=== PATIENT | female | born 1955 | race Caucasian/White ===

== ENCOUNTER 2016-11-13 12:18 | Emergency (ER) | payer OTHER, MEDICAID ==
--- NOTE | 2016-11-13 12:30 | CPEKG ---
Heart Rate: 80 RR Interval: 750 P-R Interval: 156 QRSD Interval: 86 QT Interval: 376 QTC Interval: 434 P [place]: 67 QRS [place]: 37 T Wave [place]: 25 EKG Severity - BORDERLINE ECG - EKG Impression: SINUS RHYTHM EKG Impression: BORDERLINE T ABNORMALITIES, ANTERIOR LEADS Electronically Signed By: Josue Canela 14-Nov-2016 15:12:22
--- NOTE | 2016-11-13 12:32 | EDPHY ---
HPI/HX/ROS/PE/MDM Narrative: CHIEF COMPLAINT: Left chest pain HPI: The patient is a 60 y/o female arriving via EMS from [place] complaining of greater than 12 hours of waxing and waning left-sided chest pain. She has an extensive medical history that includes CAD with LAD stent, diabetes, hypertension, hyperlipidemia, chronic pain, and agoraphobia. She first noticed pain last night and initially thought it was indigestion. She was evaluated by EMS and refused transport at that time, but was advised to call back if it became more severe. Throughout the morning the pain has become worse, more sharp , and radiates into her back and left arm. Her chest pain is reproducible with palpation. She was reluctant to come into the ED and refused IV by EMS but did take a total of 324mg Aspirin prior to arrival. She denies recent trauma. REVIEW OF SYSTEMS: Aside from elements discussed in the HPI, a comprehensive 10-point review of systems was reviewed and is negative. PMH: CAD with LAD stent, poorly controlled diabetes type 2, agoraphobia, closed head injury with vertigo and Meniere disease, chronic back pain on continuous opioids, obstructive sleep apnea, hypertension, hyperlipidemia, depression, reactive airway disease, GERD, IBS, restless leg syndrome, incontinence, Parkinson's, essential tremor, hyperostosis, migraines, cholecystectomy, left ankle ORIF. Prior medical records reviewed including admission 08/07/16 for gait instability and multiple injuries SOCIAL HISTORY: Lives at [place] PHYSICAL EXAM: General:Patient is alert, in no acute distress, chronically ill appearing, morbidly obese. ENT:Eyes are normal to inspection. ENT inspection normal. Neck: Normal inspection. Full range of motion. Respiratory:No respiratory distress. Breath sounds normal bilaterally. Tenderness to left anterior chest with palpation, no crepitus. Cardiovascular: Regular rate and rhythm. Strong peripheral pulses. Normal cap refill. Abdomen:The abdomen is nontender to palpation. There are no peritoneal signs. There are normal bowel sounds. Back: Normal to inspection. No tenderness to palpation. Skin: Normal color. No rash. Warm and dry. Extremities: Normal appearance. Full range of motion. Neuro: Oriented x3. Normal motor function. Normal sensory function. ED Course: IV established. Labs drawn including CBC, CHEM, troponin. Patient placed on salvage machine operator. Chest x-ray ordered. The 12 lead EKG was interpreted by [email or web address]. See hard copy and/or "tracemaster" electronic copy for interpretation. Study: PA and Lateral Chest X-ray Indication: Chest pain Results: Dr. Fried's read is: No source for chest pain identified. Stable since June 2009. I viewed the images on the PACS system. Troponin is negative. 1420: I discussed work up with the patient and offered admission. She declines and would like to go home. I've referred her to cardiology for follow up next week and recommended ibuprofen as needed for pain. Strict return precautions given. She agrees with plan. MDM: This patient presents to the emergency department chest pain in the setting of multiple risk factors including known coronary artery disease. She reports pain conitnually since last night, with thankfully her troponin EKG are negative , making ACS unlikely given this consistent pain. The patient has clearly reproducible chest pain with palpation, again making this somewhat low risk. I offered the patient admission the hospital for further workup and troponin rule out, but she would prefer to go home. We discussed strict return precautions. The patient is aware that I am unable to fully rule out ACS here in the emergency department without further workup. - Data Points Laboratory Results: Laboratory Results 11/13/16 13:50 11/13/16 12:50 11/13/16 11/13/16 13:50 12:50 WBC 9.12 10^3/uL REJ (3.80-9.50) RBC 5.05 10^6/uL REJ (4.18-5.33) Hgb 13.8 g/dL REJ (12.6-16.3) Hct 43.9 % REJ (38.0-47.0) MCV 86.9 fL REJ (81.5-99.8) MCH 27.3 L pg REJ (27.9-34.1) MCHC 31.4 L g/dL REJ (32.4-36.7) RDW 14.4 % REJ (11.5-15.2) Plt Count TNP REJ MPV TNP REJ Neut % (Auto) 55.4 % REJ (39.3-74.2) Lymph % (Auto) 33.1 % REJ (15.0-45.0) Wirt % (Auto) 5.9 % REJ (4.5-13.0) Eos % (Auto) 4.3 % REJ (0.6-7.6) Baso % (Auto) 0.8 % REJ (0.3-1.7) Nucleat RBC Rel Count 0.0 % REJ (0.0-0.2) Absolute Neuts (auto) 5.05 10^3/uL REJ (1.70-6.50) Absolute Lymphs (auto) 3.02 H 10^3/uL REJ (1.00-3.00) Absolute Monos (auto) 0.54 10^3/uL REJ (0.30-0.80) Absolute Eos (auto) 0.39 10^3/uL REJ (0.03-0.40) Absolute Basos (auto) 0.07 10^3/uL REJ (0.02-0.10) Absolute Nucleated RBC 0.00 10^3/uL REJ (0-0.01) Immature Gran % 0.5 % REJ (0.0-1.1) Immature Gran # 0.05 10^3/uL REJ (0.00-0.10) Sodium 137 mEq/L (134-144) Potassium 4.6 mEq/L (3.5-5.2) Chloride 101 mEq/L (97-110) Carbon Dioxide 30 mEq/l (22-31) Anion Gap 6 mEq/L (8-16) BUN 15 mg/dL (7-23) Creatinine 0.8 mg/dL (0.6-1.0) Estimated GFR > 60 Glucose 262 H mg/dL (70-100) Calcium 8.7 mg/dL (8.5-10.4) Troponin I < 0.012 ng/mL (0-0.034) General Initial Vital Signs: Initial Vital Signs Temperature (C) 36.4 C 11/13/16 12:18 Heart Rate 77 11/13/16 12:18 Respiratory Rate 18 11/13/16 12:18 Blood Pressure 120/105 H 11/13/16 12:18 O2 Sat (%) 93 11/13/16 12:18 O2 Delivery Mode Nasal Cannula O2 (L/minute) 2 Allergies/Adverse Reactions: latex Allergy (Verified 04/03/11 13:15) Home Medications: Medication Instructions Recorded Acetaminophen [Tylenol 325mg (*)] 650 mg PO Q4 PRN 08/07/16 Albuterol [Proventil Inhaler HFA 2 puffs IH Q4H 08/07/16 (*)] Aspirin [Aspirin 81mg (*)] 81 mg PO DAILY 08/07/16 Atorvastatin Calcium [Lipitor 40 40 mg PO DAILY@08/07/16 mg (*)] Calcium Carbonate [Tums 500MG (*)] 500 mg PO DAILY PRN 08/07/16 Carbidopa/Levodopa 25/100Mg 1 tab PO TID 08/07/16 [Sinemet 25/100 MG (*)] Cetirizine [ZyrTEC 10 mg (*)] 10 mg PO DAILY 08/07/16 Cholecalciferol Vit D3 [Vitamin D3 50,000 unit PO Q30D 08/07/16 (*)] DULoxetine [Cymbalta 60 MG (*)] 60 mg PO DAILY 08/07/16 Dextran 70/Hypromellose 1 each OP DAILY PRN 08/07/16 [Artificial Tears] Diazepam [Valium 5 MG (*)] 5 mg PO Q6H PRN 08/07/16 Erythromycin Stearate 500 mg PO TID 08/07/16 Fenofibrate [Tricor] 48 mg PO DAILY 08/07/16 Fluticasone Nasal [Flonase Nasal 1 - 2 sprays NASAL DAILY 08/07/16 [place]] Gabapentin [Neurontin 400 MG (*)] 1,200 mg PO BID@08/07/16 HYDROmorphone HCL [Dilaudid 2 mg 2 mg PO HS 08/07/16 (*)] HYDROmorphone HCL [Dilaudid 2 mg 2 mg PO Q6H PRN 08/07/16 (*)] Insulin Glargine [Lantus 100 32 units SC BID@08/07/16 UNITS/ML (*)] Ipratropium 0.03% Nasal [Atrovent 2 sprays EACHNARE BID PRN 08/07/16 0.03% Nasal (*)] MILNACIPRAN HCL [Savella 50 mg] 50 mg PO BID 08/07/16 Metoprolol Tartrate [Lopressor 25 12.5 mg PO BID 08/07/16 mg (*)] Mineral Oil/Pet Hy-Phl [Aquaphor 1 leandra TOP BID@08/07/16 Ointment (*)] Multivitamins [Multivitamin (*)] 1 each PO DAILY 08/07/16 Nystatin Powder [Mycostatin Powder] 1 leandra TOP DAILY@08 08/07/16 Nystatin [Mycostatin 15Gm] 1 leandra TP BID@08,1900 08/07/16 Omeprazole 20 mg PO BID 08/07/16 Ondansetron Odt [Zofran Odt 4 mg 4 mg PO Q8 PRN 08/07/16 (*)] Oxybutynin Chloride Xl [Ditropan 5 mg PO HS 08/07/16 Xl 5mg (*)] Polyethylene Glycol 3350 [Miralax 17 gm PO DAILY PRN 08/07/16 17 gm (*)] SUMAtriptan [Imitrex 50 MG (*)] 50 mg PO DAILY PRN 08/07/16 Sennosides/Docusate Sodium 1 each PO DAILY PRN 08/07/16 [SENEXON-S TABLET] Sodium Chloride [Saline Nasal Mist] 2 sprays EACHNARE Q2H PRN 08/07/16 Zolpidem Tartrate [Ambien 5MG (*)] 10 mg PO HS 08/07/16 diphenhydrAMINE [Benadryl 50 MG 50 mg PO Q6H PRN 08/07/16 (*)] fentaNYL [Duragesic 50 MCG Patch 50 mcg TD Q72H 08/07/16 (*)] guaiFENesin/DEXTROMETHORPHAN 5 - 10 ml PO Q4-6PRN PRN 08/07/16 [Robitussin Dm Oral Liquid (*)] sitaGLIPtin PHOSPHATE [Januvia 100 100 mg PO DAILY 08/07/16 MG (*)] Departure - Departure Disposition: Home, Routine, Self-Care Clinical Impression: Chest wall pain Condition: Good Instructions: Chest Wall Pain (ED) Additional Instructions: 1. Take 600mg ibuprofen every 6-8 hours as needed for pain for the next 3-4 days. 2. Follow up with your software product manager or primary care provider next week. 3. Return to the ED for worsening of condition including chest pain, shortness of breath, and fever. Referrals: [place],. [Primary Care Provider] - As per Instructions Jose Dumont MD [Medical Doctor] - As per Instructions Report Scribed for: Josue Canela Report Scribed by: Yohana Patrick Date of Report: 11/13/16 Time of Report: 12:17 Physician Review and Approval Statement: Portions of this note were transcribed by an ED scribe. I personally performed the history, physical exam, and medical decision making; and confirm the accuracy of the information in the transcribed note.
[2016-11-13 13:01] LABS: ATYPICAL LYMPHOCYTE FLAG 0 (0-99); FRAGMENT RBC FLAG 0 (0-99); LEFT SHIFT FLG 0 (0-99); LIPEMIA HEMOLYSIS FLAG 80 (0-99)
[2016-11-13 13:08] LABS: PLATELET CLUMPS FLAG 300 (0-99)
[2016-11-13 13:17] LABS: ANION GAP 6 mEq/L (8-16); CALCIUM 8.7 mg/dL (8.5-10.4); CARBON DIOXIDE 30 mEq/l (22-31); CHLORIDE 101 mEq/L (97-110); CREATININE 0.8 mg/dL (0.6-1.0); GLOMERULAR FILTRATION RATE > 60; GLUCOSE 262 mg/dL (70-100); POTASSIUM 4.6 mEq/L (3.5-5.2); SODIUM 137 mEq/L (134-144)
[2016-11-13 13:26] LABS: TROPONIN I < 0.012 ng/mL (0-0.034)
--- NOTE | 2016-11-13 13:46 | DX ---
Chest, PA and Lateral History: Chest pain. Findings: The patient is obese. Lungs clear. Heart size is at the upper limits of normal. No pneumoth orax or pleural effusion. There is chronic degenerative spurring in the mid and lower thoracic spine. EKG leads and oxygen tubing overlie the chest. Impression: No source for chest pain identified. Stable since June 2009.
[2016-11-13 14:06] LABS: % IMMATURE GRANULYOCYTES 0.5 % (0.0-1.1); ABSOLUTE IMMATURE GRANULOCYTES 0.05 10^3/uL (0.00-0.10); ADD DIFF? NO; ADD MORPH? NO; ADD SCAN? YES; ATYPICAL LYMPHOCYTE FLAG 0 (0-99); FRAGMENT RBC FLAG 0 (0-99); HEMATOCRIT 43.9 % (38.0-47.0); HEMOGLOBIN 13.8 g/dL (12.6-16.3); LEFT SHIFT FLG 0 (0-99); LIPEMIA HEMOLYSIS FLAG 80 (0-99); MEAN CELL HEMOGLOBIN 27.3 pg (27.9-34.1); MEAN CELL HEMOGLOBIN CONCENTR. 31.4 g/dL (32.4-36.7); MEAN CELL VOLUME 86.9 fL (81.5-99.8); RED BLOOD CELL COUNT 5.05 10^6/uL (4.18-5.33); RED CELL DISTRIBUTION WIDTH 14.4 % (11.5-15.2)
[2016-11-13 14:07] LABS: PLATELET CLUMPS FLAG 300 (0-99)
[2016-11-13 14:34] LABS: SCAN NEGATIVE
[2016-11-13 16:30] VITALS: BP 119/79; PULSE 72; RESP 20; TEMP 98.2; O2SAT 96
== END 2016-11-13 16:40 | disposition home or self-care (01) ==
LOC: EDUNIT#
DX: R07.89 Other chest pain (principal); I25.10 Atherosclerotic heart disease of native coronary artery without angina pectoris; E11.9 Type 2 diabetes mellitus without complications; I10 Essential (primary) hypertension; J45.909 Unspecified asthma, uncomplicated; Z79.4 Long term (current) use of insulin; Z79.82 Long term (current) use of aspirin; Z91.040 Latex allergy status; Z98.61 Coronary angioplasty status

== ENCOUNTER 2017-09-21 08:35 | Observation (INO) | payer MEDICAID, OTHER ==
--- NOTE | 2017-09-21 08:48 | EDPHY ---
HPI/HX/ROS/PE/MDM Narrative: CHIEF COMPLAINT: Chest pain HISTORY OF PRESENT ILLNESS: This patient is a non-anticoagulated 62 y/o female with history of diabetes, migraine, and CAD arriving via EMS complaining of right-sided chest pain onset early this morning. She received 325mg PO aspirin in transport. Currently, her pain radiates to left side and into her left arm. She rates the severity at 7/ 10. It is worse with deep inspiration. Her chest feels sore to the touch. She also complains of a right-sided headache which began this morning as well. She notes her legs have been swelling and turning bright red recently. She endorses recent rhinorrhea, but no cough or chest congestion.She has history of asthma and has been using her inhaler and wearing oxygen at night. She states her lungs were clear during her routine exam last week. No fever, chills, shortness of breath, palpitations, vomiting, diarrhea, urinary complaints, lightheadedness. REVIEW OF SYSTEMS: Aside from elements discussed in the HPI, a comprehensive 10-point review of systems was reviewed and is negative. PAST MEDICAL HISTORY: 1. Diabetes 2. Migraine 3. Asthma 4. Reflux 5. CAD (angioplasty) 6. History of DVT 7. Parkinson's disease 8. Fibromyalgia SOCIAL HISTORY: Lives at [facility]. VITAL SIGNS: Reviewed by me GENERAL: Obese female, chronically on O2, resting comfortably in no respiratory distress. HEENT: Atraumatic. Eyes: No icterus, no injection. Mouth: dry mucous membranes. No erythema or lesions. Neck: supple with no adenopathy. LUNGS: Clear to auscultation bilaterally, no wheezes, rhonchi or rales. Diffuse tenderness across chest wall. No rash or erythema. CARDIAC: Regular rate and rhythm, no rubs, murmurs or gallops. ABDOMEN: Obese, soft, epigastric tenderness. BACK: No CVA tenderness. EXTREMITIES: Bilateral lower extremity edema. Right foot dusky, cool to touch. Hematoma to left medial heel from prior trauma. NEURO: Alert and oriented, grossly nonfocal. SKIN: Warm and dry, no rash. PSYCHIATRIC: Normal mentation, no agitation. Portions of this note were transcribed by a medical appliance maker. I personally performed a history, physical exam, medical decision making, and confirmed accuracy of information the transcribed note. ED Course: 08:39 Met EMS at bedside 62 year old female with history of CAD, diabetes, reflux, and migraines presents with bilateral chest pain and headache onset this morning. Exam reveals diffuse tenderness across chest wall and upper abdomen and bilateral lower extremity edema. Her right foot is dusky and cool to the touch. IV established. Plan for EKG, chest x-ray, labs including CBC, chemistries, troponin, d-dimer, BNP, liver, lipase. Plan to administer 4mg IV morphine for pain control. 12-LEAD EKG: Please see the full report in Trace Master. My interpretation: Sinus rhythm, rate 80, no acute ischemic changes. 11:[address] Garza, radiologist. CT head and CTA chest negative for acute processes. Patient reports that her right foot has been cool and dusky 1st quite some time. I suspect she may have arterial insufficiency. Further evaluation will be performed while in the hospital. 12:10 Consulted with hospitalist service. Dr. Erickson accepts admission for chest discomfort. Plan for flu swab. MDM: After history and physical examination, the differential for chest pain was considered, including but not limited to, myocardial ischemia, acute coronary syndrome, pulmonary embolus, chest wall pain, gastrointestinal causes, pleural inflammation and pulmonary infectious causes. - Data Points Imaging Results: CT Head: Impression: 1. No acute intracranial hemorrhage, subdural hematoma, or mass. 2. Mild atrophy. Findings discussed with Emergency Department physician, Sabina Connors M.D., on 09/21/2017 at 11: 50 a.m. Dictated By: Hiro Garza MD Ct Chest for PE Impression: 1. No evidence of thrombopulmonary embolic disease. 2. Normal caliber atherosclerotic aorta. 3. Clear lungs. No edema or pneumonia. Findings discussed with Emergency Department physician, Sabina Connors M.D., on 09/21/2017 at 11:50 a.m. Dictated By: Hiro Garza MD Laboratory Results: Laboratory Results 09/21/17 08:45 09/21/17 08:45 Medications Given: Discontinued Medications Aspirin (Aspirin) 81 mg PO DAILY [facility] Stop: 03/21/18 08:59 Last Admin: 09/22/17 08:52 Dose: 81 mg Atorvastatin Calcium (Lipitor) 40 mg PO DAILY@19 [facility] Stop: 03/20/18 18:59 Last Admin: 09/21/17 23:17 Dose: 40 mg Carbidopa/Levodopa (Sinemet) 2 tab PO TID@0900,1300,1900 [facility] Stop: 03/20/18 15:59 Last Admin: 09/22/17 14:42 Dose: 2 tab Cetirizine HCl (Zyrtec) 10 mg PO DAILY [facility] Stop: 03/21/18 08:59 Last Admin: 09/22/17 08:53 Dose: 10 mg Diclofenac Sodium (Diclofenac Sodium 1% Gel) 4 gm TP QID ZENON Stop: 03/20/18 15:59 Last Admin: 09/22/17 12:15 Dose: Not Given Duloxetine HCl (Cymbalta) 60 mg PO DAILY [facility] Stop: 03/21/18 08:59 Last Admin: 09/22/17 08:53 Dose: 60 mg Enoxaparin Sodium (Lovenox) 40 mg SC BID [facility] Stop: 03/20/18 20:59 Last Admin: 09/22/17 11:59 Dose: Not Given Fenofibrate (Tricor) 48 mg PO DAILY [facility] Stop: 03/21/18 08:59 Last Admin: 09/22/17 08:52 Dose: 48 mg Fluticasone Propionate (Flonase Nasal [place]) 2 sprays NS HS [facility] Stop: 03/21/18 00:59 Last Admin: 09/22/17 01:04 Dose: 1 spray Gabapentin (Neurontin) 1,200 mg PO BID [facility] Stop: 03/20/18 20:59 Last Admin: 09/22/17 08:53 Dose: 1,200 mg Hydromorphone HCl (Dilaudid) 2 mg PO HS [facility] Stop: 10/01/17 20:59 Last Admin: 09/21/17 15:52 Dose: 2 mg Hydromorphone HCl (Dilaudid) 2 mg PO Q6 PRN PRN Reason: Pain, Breakthrough Stop: 10/01/17 14:55 Last Admin: 09/21/17 23:25 Dose: 2 mg Insulin Glargine (Lantus Syringe) 32 units SC BID@0700,1600 [facility] Stop: 03/20/18 15:59 Last Admin: 09/22/17 06:29 Dose: 32 units Insulin Human Lispro (Humalog Lispro) 0 unit SC TIDMEAL [facility] PRN Reason: Protocol Stop: 03/20/18 17:59 Last Admin: 09/22/17 12:14 Dose: 4 unit Insulin Human NPH (Humulin N Syringe) 10 units SC BID@0700,1600 [facility] Stop: 03/20/18 15:59 Last Admin: 09/22/17 06:29 Dose: 10 units Lorazepam (Ativan) 0.5 mg PO ONCE ONE Stop: 09/22/17 08:14 Last Admin: 09/22/17 08:53 Dose: 0.5 mg Metoprolol Tartrate (Lopressor) 12.5 mg PO BID [facility] Stop: 03/20/18 20:59 Last Admin: 09/22/17 08:54 Dose: 12.5 mg Miscellaneous Medication (Milnacipran Hcl [Savella 50 Mg]) 50 mg PO BID [facility] Stop: 03/20/18 20:59 Last Admin: 09/22/17 08:55 Dose: Not Given Morphine Sulfate (Morphine) 4 mg IVP EDNOW ONE Stop: 09/21/17 08:53 Last Admin: 09/21/17 09:13 Dose: 4 mg Morphine Sulfate (Morphine) 4 mg IVP EDNOW ONE Stop: 09/21/17 12:15 Last Admin: 09/21/17 12:27 Dose: 4 mg Multi-Ingredient Ointment (Aquaphor Ointment) 1 leandra TP BID [facility] Stop: 03/20/18 20:59 Last Admin: 09/22/17 09:00 Dose: 1 leandra Multivitamins (Tab-A-Macho) 1 each PO DAILY [facility] Stop: 03/21/18 08:59 Last Admin: 09/22/17 08:53 Dose: 1 each Oxybutynin Chloride (Ditropan Xl) 10 mg PO DAILY@20 [facility] Stop: 03/20/18 19:59 Last Admin: 09/21/17 23:23 Dose: 10 mg Pantoprazole Sodium (Protonix) 40 mg IVP EDNOW ONE Stop: 09/21/17 12:16 Last Admin: 09/21/17 12:27 Dose: 40 mg Pantoprazole Sodium (Protonix) 40 mg PO BID [facility] Stop: 03/20/18 20:59 Last Admin: 09/22/17 08:52 Dose: 40 mg Sitagliptin Phosphate (Januvia) 100 mg PO DAILY [facility] Stop: 03/21/18 08:59 Last Admin: 09/22/17 09:07 Dose: 100 mg Zolpidem Tartrate (Ambien) 10 mg PO HS [facility] Stop: 03/20/18 20:59 Last Admin: 09/21/17 23:27 Dose: Not Given General Time Seen by Provider: 09/21/17 08:37 Initial Vital Signs: Initial Vital Signs Temperature (C) 36.6 C 09/21/17 08:59 Heart Rate 93 09/21/17 08:59 Respiratory Rate 18 09/21/17 08:59 Blood Pressure 143/93 H 09/21/17 08:59 O2 Sat (%) 88 L 09/21/17 08:59 O2 Delivery Mode Nasal Cannula O2 (L/minute) 2 Allergies/Adverse Reactions: latex Allergy (Verified 09/21/17 08:59) Home Medications: Medication Instructions Recorded Aspirin [Aspirin 81mg (*)] 81 mg PO DAILY 08/07/16 Carbidopa/Levodopa 25/100Mg 2 tab PO TID@08/07/16 [Sinemet 25/100 MG (*)] Cetirizine [ZyrTEC 10 mg (*)] 10 mg PO DAILY 08/07/16 DULoxetine [Cymbalta 60 MG (*)] 60 mg PO DAILY 08/07/16 Fenofibrate [Tricor] 48 mg PO DAILY 08/07/16 Gabapentin [Neurontin 400 MG (*)] 1,200 mg PO BID 08/07/16 Insulin Glargine [Lantus 100 32 units SC BID@08/07/16 UNITS/ML (*)] MILNACIPRAN HCL [Savella 50 mg] 50 mg PO BID 08/07/16 Metoprolol Tartrate [Lopressor 25 12.5 mg PO BID 08/07/16 mg (*)] Multivitamins [Multivitamin (*)] 1 each PO DAILY 08/07/16 Omeprazole 20 mg PO BID 08/07/16 fentaNYL [Duragesic 50 MCG Patch 50 mcg TD Q72H 08/07/16 (*)] sitaGLIPtin PHOSPHATE [Januvia 100 100 mg PO DAILY 08/07/16 MG (*)] Acetaminophen [Tylenol 325mg (*)] 650 mg PO Q4 PRN 09/21/17 Albuterol [Ventolin Hfa Inhaler] 1 puffs IH Q4 PRN 09/21/17 Atorvastatin Calcium [Lipitor 40 40 mg PO DAILY@19 09/21/17 mg (*)] Cholecalciferol Vit D3 [Vitamin D3 50,000 unit PO Q30D 09/21/17 (*)] Diazepam [Valium 5 MG (*)] 5 mg PO Q6 PRN 09/21/17 Diclofenac Sodium 1% [Voltaren Gel 4 gm TP QID 09/21/17 (*)] Fluticasone Nasal [Flonase Nasal 2 sprays NASAL HS 09/21/17 [place]] HYDROmorphone HCL [Dilaudid 2 mg 2 mg PO HS 09/21/17 (*)] HYDROmorphone HCL [Dilaudid 2 mg 2 mg PO Q6 PRN 09/21/17 (*)] Insulin NPH Human [humULIN N 100 10 units SC BID@07,16 09/21/17 UNITS/ML (*)] Mineral Oil/Pet Hy-Phl [Aquaphor 1 leandra TP BID 09/21/17 Ointment (*)] Nystatin [Mycostatin Cream (RX)] 1 leandra TP DAILY PRN 09/21/17 Oxybutynin Chloride [OXYBUTYNIN 10 mg PO DAILY@20 09/21/17 CHLORIDE ER] SUMAtriptan [Imitrex 50 MG (*)] 50 mg PO Q2H PRN 09/21/17 Zolpidem Tartrate [Ambien 10 mg] 10 mg PO HS 09/21/17 Departure - Departure Disposition: [facility] Acute Clinical Impression: Chest pain Qualifiers: Chest pain type: other chest pain Qualified Code(s): R07.89 - Other chest pain ; R07.8 - Other chest pain Condition: Fair Report Scribed for: Sabina Connors Report Scribed by: Kelley Cardenas Date of Report: 09/21/17 Time of Report: 09:54
--- NOTE | 2017-09-21 08:58 | CPEKG ---
Heart Rate: 80 RR Interval: 750 P-R Interval: 140 QRSD Interval: 80 QT Interval: 368 QTC Interval: 425 P [place]: 54 QRS [place]: 50 T Wave [place]: 37 EKG Severity - BORDERLINE ECG - EKG Impression: SINUS RHYTHM EKG Impression: BORDERLINE T ABNORMALITIES, ANTERIOR LEADS Electronically Signed By: Casey Croft 24-Sep-2017 06:15:55
[2017-09-21 09:01] LABS: % IMMATURE GRANULYOCYTES 0.4 % (0.0-1.1); ABSOLUTE IMMATURE GRANULOCYTES 0.04 10^3/uL (0.00-0.10); ADD DIFF? NO; ADD MORPH? NO; ADD SCAN? NO; ATYPICAL LYMPHOCYTE FLAG 0 (0-99); FRAGMENT RBC FLAG 0 (0-99); HEMATOCRIT 44.7 % (38.0-47.0); HEMOGLOBIN 14.6 g/dL (12.6-16.3); LEFT SHIFT FLG 0 (0-99); LIPEMIA HEMOLYSIS FLAG 80 (0-99); MEAN CELL HEMOGLOBIN 28.9 pg (27.9-34.1); MEAN CELL HEMOGLOBIN CONCENTR. 32.7 g/dL (32.4-36.7); MEAN CELL VOLUME 88.5 fL (81.5-99.8); MEAN PLATELET VOLUME 9.9 fL (8.7-11.7); PLATELET CLUMPS FLAG 10 (0-99); PLATELET COUNT 230 10^3/uL (150-400); RED BLOOD CELL COUNT 5.05 10^6/uL (4.18-5.33); RED CELL DISTRIBUTION WIDTH 13.9 % (11.5-15.2)
[2017-09-21 09:13] LABS: ALANINE AMINOTRANSFERASE 27 IU/L (9-52); ALBUMIN 3.6 g/dL (3.5-5.0); ALKALINE PHOSPHATASE 91 IU/L (38-126); ANION GAP 12 mEq/L (8-16); ASPARTATE AMINOTRANSFERASE 39 IU/L (14-46); BILIRUBIN,TOTAL 0.7 mg/dL (0.1-1.4); BILIRUBIN-CONJUGATED 0.5 mg/dL (0.0-0.5); BILIRUBIN-UNCONJUGATED 0.2 mg/dL (0.0-1.1); CALCIUM 9.5 mg/dL (8.5-10.4); CARBON DIOXIDE 23 mEq/l (22-31); CHLORIDE 105 mEq/L (97-110); CREATININE 0.9 mg/dL (0.6-1.0); GLOMERULAR FILTRATION RATE > 60; GLUCOSE 177 mg/dL (70-100); POTASSIUM 5.6 mEq/L (3.5-5.2); SODIUM 140 mEq/L (134-144); SPECIMEN HEMOLYSIS 131; TOTAL PROTEIN 6.3 g/dL (6.3-8.2)
[2017-09-21 09:24] LABS: TROPONIN I < 0.012 ng/mL (0.000-0.034)
[2017-09-21] MEDS ORDERED: IOPAMIDOL (ISOVUE 370) 100 ML BTL IV ONE (09:59)
[2017-09-21] MEDS ORDERED: PANTOPRAZOLE SODIUM 40 MG VIAL IVP ONE (12:15)
[2017-09-21] MEDS ORDERED: ONDANSETRON 4 MG/2 ML VIAL IVP PRN (12:16)
[2017-09-21] MEDS ORDERED: ACETAMINOPHEN 325 MG TAB PO PRN (12:16)
[2017-09-21] MEDS ORDERED: ONDANSETRON DISINTEGRATING 4 MG TAB PO PRN (12:16)
--- NOTE | 2017-09-21 14:40 | ASMTCMCOM ---
CM Note CM Note Notes: Patient admitted for chest pain, headache. Patient has a history of migraines, DM, asthma, Parkinsons, CAD. Patient lives in Assisted Living at [facility] location (main: [phone]) and uses a wheelchair and oxygen at night. Per chart review and demographics sheet, patient's caregiver and POA is Roxie Weems. Called [facility] and left a voicemail with Daniela, [employer], to update re: patients admission. CM to follow. Date Signed: 09/21/2017 02:40 PM Electronically Signed By:Dawna Mendoza RN
[2017-09-21] MEDS ORDERED: SUMAtriptan 50 MG TAB PO PRN (14:56)
[2017-09-21] MEDS ORDERED: HYDROmorphONE/DILAUDID 2 MG TAB PO PRN (14:56)
[2017-09-21] MEDS ORDERED: DIAZEPAM 5 MG TAB PO PRN (14:56)
[2017-09-21] MEDS ORDERED: NYSTATIN 15 GM CR TUBE TP PRN (14:56)
[2017-09-21] MEDS ORDERED: D50W 25 GM/50 ML SYR IVP PRN (15:09)
--- NOTE | 2017-09-21 15:56 | GHP ---
[f rep st] HISTORY AND PHYSICAL DATE OF ADMISSION: 09/21/2017 CHIEF COMPLAINT: Fatigue and chest pain. HISTORY OF PRESENT ILLNESS: A 62-year-old female with multiple medical comorbidities, who presents w [facility] complaints of heavy pressure-like chest pain across her chest that began the morning of presentat ion. The patient describes not feeling her normal self the 24 hours preceding the start of her sympt oms with associated subjective fevers, chills, malaise and fatigue, nonproductive cough, shortness of breath and lack of appetite. The patient ate a light dinner, used her power wheelchair to get back to her room and went to bed. She awoke early in the morning on 09/21 with a sensation of tightness i n her chest that began on the right side of her chest and radiated over to the left side of her chest . It was associated with increased shortness of breath and with some cough. Because the patient rep orted this symptom to her nursing provider, she was transferred to the hospital for evaluation. In th e ED, approximately 10 hours after initiation of symptoms, the patient is still experiencing some tig htness in her chest with persistent cough which remains nonproductive. The patient does not meaningf ully exert herself as she uses a mobile wheelchair for ambulating farther than walks from her bed to her bathroom. She denies exertional symptoms in the days preceding. Denies any diarrhea, dysuria, hem aturia or increased lower extremity edema. PAST MEDICAL HISTORY: 1. Diabetes. 2. Parkinson's. 3. Coronary artery disease status post stenting to her LAD. 4. 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 5. Obstructive sleep apnea. 6. Chronic back pain with continuous opioid dependency. 7. Hypertension. 8. Hyperlipidemia. 9. Depression. 10. Reactive airways disease. 11. Gastroesophageal reflux disease. 12. Irritable bowel syndrome. 13. Chronic urinary incontinence. 14. Idiopathic skeletal hyperostosis. 15. Migraine headaches. 16. Essential tremor. 17. Agoraphobia. SOCIAL HISTORY: Patient currently lives at [facility]. Denies alcohol, tobacco or il licit drugs. FAMILY HISTORY: Both parents are . Positive for diabetes.. REVIEW OF SYSTEMS: A 10-point review of systems is negative with the exception of that reported in t he HPI. ADVANCED DIRECTIVES: The patient is DO NOT RESUSCITATE. PHYSICAL EXAMINATION: VITAL SIGNS: Blood pressure 138/106, heart rate 79, respiratory rate 18, 98% on 2 L, 36.7. GENERAL: This is a morbidly obese female, lying flat in bed. HEENT: Notable for dry mucous membranes. Eye exam is negative for any icterus. CARDIAC: Patient has distant heart sounds but is irregular. PULMONARY: Diminished respiratory effort with diminished breath sounds at bilater al bases. No wheezing is appreciated. GASTROINTESTINAL: Obese abdomen, positive bowel sounds, nont matthew to palpation. MUSCULOSKELETAL: Notable for symmetric trace lower extremity edema. SKIN: Neg ative for any rashes. There are chronic venous stasis changes of her bilateral lower extremities. N EUROLOGIC: She is alert and oriented x3. PSYCHIATRIC: She appears depressed on my interview and ex amination. DATA: White count 10.2, near her recent baseline. -dimer 0.9, creatinine 0.9, blood glucose 177. Tro ponin less than 0.012. A CTA of the chest is negative for pulmonary embolism, no infiltrates are leandra reciated. EKG, which I personally reviewed and interpreted, shows sinus rhythm, normal axis, normal i ntervals with no acute ST-T changes. ASSESSMENT AND PLAN: This is a 62-year-old female, presenting with lethargy and chest pain. 1. Chest pain. I do believe the symptoms are related to an underlying process which is most likely an acute viral infection. The patient has myalgias, fatigue, fever, chills all consistent with this. Will send a respiratory viral panel. Because the patient has known coronary artery disease, she is certainly high risk for ischemia based on comorbidities. We will follow troponins through the afterno on and follow the patient on telemetry. If we find an alternate explanation for her chest symptoms a nd have relief with appropriate respiratory care, will not pursue additional cardiac risk stratificat ion. If her workup is negative and she remained symptomatic, then we can further discuss stress test ing in the morning. 2. Coronary artery disease as above. The patient has documented disease and is certainly high risk. Will follow serial troponins and telemetry overnight. 3. Diabetes. Will continue patient's home regimen, which is a little untraditional with the use of L antus and NPH, and follow her blood sugars inpatient. 4. Parkinson's. Will continue patient's Parkinson regimen. Can consult physical therapy and occupati onal therapy.. 5. Hypertension. Patient's blood pressures are adequately controlled on her home regimen, will grace nue to monitor. 6. Chronic back pain with continuous opioid dependency. Will continue patient's outpatient narcotic regimen. 7. Prophylaxis. With Lovenox. 8. Diet. Regular, patient is refusing cardiac. DISPOSITION: I am expecting greater than 2 midnights as she will require additional diagnostic mendez p and supportive care. I have discussed the case with the emergency room physician. Patient will be triaged to the PCU for care. /[id number]/MODL
[2017-09-21] MEDS: DICLOFENAC SODIUM 1% 100 GM GEL TP SCH ×2 (16:09→23:30)
[2017-09-21] MEDS: INSULIN NPH HUMAN 100 UNITS/ML SYRINGE SC SCH (16:24)
[2017-09-21] MEDS: CARBIDOPA/LEVODOPA 25 MG/100 MG TAB PO SCH ×2 (16:24→23:18)
[2017-09-21] MEDS: INSULIN GLARGINE 100 UNITS/ML SYRINGE SC SCH (16:25)
[2017-09-21 16:44] LABS: COLOR YELLOW; LEUKOCYTE ESTERASE,URINE 1+ (NEGATIVE); NITRITE,URINE NEGATIVE (NEGATIVE)
[2017-09-21 17:11] LABS: BACTERIA 3+ /hpf (NONE SEEN)
[2017-09-21] MEDS: INSULIN LISPRO 100 UNIT/ML SC SCH (17:49)
[2017-09-21] MEDS ORDERED: ATORVASTATIN CALCIUM 40 MG TAB PO SCH (19:00)
[2017-09-21] MEDS ORDERED: OXYBUTYNIN 5 MG EXT REL TAB PO SCH (20:00)
[2017-09-21] MEDS ORDERED: MINERAL OIL TP SCH (21:00)
[2017-09-21] MEDS ORDERED: NON-FORMULARY NEW DRUG (Zolpidem Tartrate [Ambien 10 Mg] 10 MG) PO SCH (21:00)
[2017-09-21] MEDS ORDERED: ZOLPIDEM TARTRATE 5 MG TAB PO SCH (21:00)
[2017-09-21] MEDS ORDERED: PET HY PHL TP SCH (21:00)
[2017-09-21] MEDS ORDERED: HYDROmorphONE/DILAUDID 2 MG TAB PO SCH (21:00)
[2017-09-21] MEDS ORDERED: MILNACIPRAN HCL 50 MG PO SCH (21:00)
[2017-09-21] MEDS ORDERED: NON-FORMULARY NEW DRUG (Omeprazole [Omeprazole] 20 MG) PO SCH (21:00)
[2017-09-21] MEDS: ENOXAPARIN 40 MG/0.4 ML SYR SC SCH (23:16)
[2017-09-21] MEDS: GABAPENTIN 400 MG CAP PO SCH (23:19)
[2017-09-21] MEDS: METOPROLOL TARTRATE 25 MG TAB PO SCH (23:22)
[2017-09-21] MEDS: PANTOPRAZOLE SODIUM 40 MG TAB PO SCH (23:23)
[2017-09-21] MEDS: PET HY PHL TP SCH (23:29)
[2017-09-21] MEDS: MINERAL OIL TP SCH (23:29)
[2017-09-21] MEDS: MILNACIPRAN HCL PO SCH (23:31)
[2017-09-22] MEDS ORDERED: FLUTICASONE NASAL 120 SPRAYS/16 GM MDI NS SCH ×2 (01:00→16:15)
[2017-09-22 05:01] VITALS: TEMP 97.9
[2017-09-22] MEDS: DICLOFENAC SODIUM 1% 100 GM GEL TP SCH ×2 (06:28→12:15)
[2017-09-22] MEDS: INSULIN GLARGINE 100 UNITS/ML SYRINGE SC SCH (06:29)
[2017-09-22] MEDS: INSULIN NPH HUMAN 100 UNITS/ML SYRINGE SC SCH (06:29)
[2017-09-22] MEDS ORDERED: LORazepam 0.5 MG TAB PO ONE (08:13)
[2017-09-22 08:22] LABS: HEMATOCRIT 43.9 % (38.0-47.0); HEMOGLOBIN 13.9 g/dL (12.6-16.3); MEAN CELL HEMOGLOBIN CONCENTR. 31.7 g/dL (32.4-36.7); MEAN CELL VOLUME 91.5 fL (81.5-99.8); RED BLOOD CELL COUNT 4.8 10^6/uL (4.18-5.33); RED CELL DISTRIBUTION WIDTH 13.7 % (11.5-15.2)
[2017-09-22 08:40] LABS: ANION GAP 8 mEq/L (8-16); CALCIUM 9.1 mg/dL (8.5-10.4); CARBON DIOXIDE 30 mEq/l (22-31); CHLORIDE 103 mEq/L (97-110); CREATININE 0.9 mg/dL (0.6-1.0); GLOMERULAR FILTRATION RATE > 60; GLUCOSE 255 mg/dL (70-100); POTASSIUM 4.8 mEq/L (3.5-5.2); SODIUM 141 mEq/L (134-144)
[2017-09-22] MEDS: CARBIDOPA/LEVODOPA 25 MG/100 MG TAB PO SCH ×2 (08:51→14:42)
[2017-09-22] MEDS: PANTOPRAZOLE SODIUM 40 MG TAB PO SCH (08:52)
[2017-09-22] MEDS: GABAPENTIN 400 MG CAP PO SCH (08:53)
[2017-09-22] MEDS: METOPROLOL TARTRATE 25 MG TAB PO SCH (08:54)
[2017-09-22] MEDS: MILNACIPRAN HCL PO SCH (08:55)
[2017-09-22] MEDS: MINERAL OIL TP SCH (09:00)
[2017-09-22] MEDS ORDERED: MULTIVITAMINS 1 EACH TAB PO SCH (09:00)
[2017-09-22] MEDS ORDERED: CETIRIZINE 10 MG TAB PO SCH (09:00)
[2017-09-22] MEDS ORDERED: DULoxetine 60 MG CAP PO SCH (09:00)
[2017-09-22] MEDS ORDERED: FENOFIBRATE 48 MG TAB PO SCH (09:00)
[2017-09-22] MEDS: PET HY PHL TP SCH (09:00)
[2017-09-22] MEDS ORDERED: ASPIRIN 81 MG CHEWABLE TAB PO SCH (09:00)
[2017-09-22] MEDS ORDERED: REGADENOSON 0.4 MG/5 ML SYR IVP ONE (10:13)
[2017-09-22] MEDS: ENOXAPARIN 40 MG/0.4 ML SYR SC SCH (11:59)
[2017-09-22] MEDS: INSULIN LISPRO 100 UNIT/ML SC SCH ×2 (12:13→12:14)
[2017-09-22 12:30] VITALS: BP 132/92; PULSE 73; RESP 7; O2SAT 96
--- NOTE | 2017-09-22 12:42 | PDIAF ---
- Diagnosis Diagnosis: chest pain Code Status: Do Not Resuscitate - Medication Management Discharge Medications: Medications to Continue on Transfer Aspirin [Aspirin 81mg (*)] 81 mg PO DAILY 08/07/16 [Last Taken 09/20/17] Carbidopa/Levodopa 25/100Mg [Sinemet 25/100 MG (*)] 2 tab PO TID@,, [Last Taken 09/20/17 21:00] Cetirizine [ZyrTEC 10 mg (*)] 10 mg PO DAILY 08/07/16 [Last Taken 09/20/17] DULoxetine [Cymbalta 60 MG (*)] 60 mg PO DAILY 08/07/16 [Last Taken 09/20/17] Fenofibrate [Tricor] 48 mg PO DAILY 08/07/16 [Last Taken 09/20/17] Gabapentin [Neurontin 400 MG (*)] 1,200 mg PO BID 08/07/16 [Last Taken 09/20/17 21:00] Insulin Glargine [Lantus 100 UNITS/ML (*)] 32 units SC BID@08/07/16 [Last Taken 09/21/17] MILNACIPRAN HCL [Savella 50 mg] 50 mg PO BID 08/07/16 [Last Taken 09/20/17 21:00 ] Metoprolol Tartrate [Lopressor 25 mg (*)] 12.5 mg PO BID 08/07/16 [Last Taken 21:00] Multivitamins [Multivitamin (*)] 1 each PO DAILY 08/07/16 [Last Taken 09/20/17] Omeprazole 20 mg PO BID 08/07/16 [Last Taken 09/20/17 21:00] fentaNYL [Duragesic 50 MCG Patch (*)] 50 mcg TD Q72H 08/07/16 [Last Taken ] sitaGLIPtin PHOSPHATE [Januvia 100 MG (*)] 100 mg PO DAILY 08/07/16 [Last Taken 09/20/17] Acetaminophen [Tylenol 325mg (*)] 650 mg PO Q4 PRN 09/21/17 [Last Taken 09/17/17 ] Albuterol [Ventolin Hfa Inhaler] 1 puffs IH Q4 PRN 09/21/17 [Last Taken Unknown] Atorvastatin Calcium [Lipitor 40 mg (*)] 40 mg PO DAILY@19 09/21/17 [Last Taken 09/20/17] Cholecalciferol Vit D3 [Vitamin D3 (*)] 50,000 unit PO Q30D 09/21/17 [Last Taken 09/18/17] Diazepam [Valium 5 MG (*)] 5 mg PO Q6 PRN 09/21/17 [Last Taken 09/16/17] Diclofenac Sodium 1% [Voltaren Gel (*)] 4 gm TP QID 09/21/17 [Last Taken Unknown ] Fluticasone Nasal [Flonase Nasal [place] (RX)] 2 sprays NASAL HS 09/21/17 [Last Taken 09/20/17] HYDROmorphone HCL [Dilaudid 2 mg (*)] 2 mg PO HS 09/21/17 [Last Taken 09/20/17] HYDROmorphone HCL [Dilaudid 2 mg (*)] 2 mg PO Q6 PRN 09/21/17 [Last Taken 05:30] Insulin NPH Human [humULIN N 100 UNITS/ML (*)] 10 units SC BID@07,16 09/21/17 [ Last Taken 09/21/17] Mineral Oil/Pet Hy-Phl [Aquaphor Ointment (*)] 1 leandra TP BID 09/21/17 [Last Taken 09/20/17] Nystatin [Mycostatin Cream (RX)] 1 leandra TP DAILY PRN 09/21/17 [Last Taken ] Oxybutynin Chloride [Oxybutynin Chloride Er] 10 mg PO DAILY@20 09/21/17 [Last Taken 09/20/17] SUMAtriptan [Imitrex 50 MG (*)] 50 mg PO Q2H PRN 09/21/17 [Last Taken 09/10/17] Zolpidem Tartrate [Ambien 10 mg] 10 mg PO HS 09/21/17 [Last Taken 09/20/17] Discharge Medications: Refer to the Discharge Home Medication list for PRN reason. - Orders Services needed: Registered Nurse, Master Sap Ppm Consultant, Physical Therapy, Occupational Therapy - Follow Up Care Current Providers and Referrals: Patient,NotPresent [Unknown] - As per Instructions
--- NOTE | 2017-09-22 13:37 | CPR ---
[f rep st] NONINVASIVE CARDIAC PROCEDURE REPORT PROCEDURE: Lexiscan injection of Lexiscan MPI study. INDICATION FOR PROCEDURE: Chest pressure, known history of CAD, cannot run on exercise treadmill. PRE: After obtaining informed consent and ensuring patient's n.p.o. status of caffeine for greater than 12 hours, the patient was placed on electrocardiogram. Initial EKG shows sinus rhythm, normal axis, nonspecific T- wave abnormalities in lateral leads. The patient reports a mild continuous chest pressure, which has been ongoing since hospitalization, reporting no significant worsening of symptoms. She denies of any shortness of breath or palpitations. Initial blood pressure was 146/78, saturation 94%. INJECTION: Patient was given Lexiscan slow IV push followed by nuclear isotope. Within 1 minute after injection, heart rate did increase to 82, but with no significant EKG changes. Patient reports no change in mild continuous chest pressure, no other symptoms. Within 5 minutes, no significant changes, patient's vital signs remained stable, saturation 98%. IMPRESSION: A 62-year-old female, admitted to the hospital with noted reporting of chest pressure with known CAD, reporting a continuous chest pressure since hospital admission, which does not worsen with exertion or rest, rating it a 1/10. Given Lexiscan with no significant EKG changes, she has been noted to have negative troponins x2. Tolerated injection without any significant symptoms. No significant EKG changes, vital signs are stable. She will finish poststress imaging in Nuclear Medicine at this time. /[id number]/MODL MTDD
--- NOTE | 2017-09-22 16:49 | ASDISCHSUM ---
Discharge Information Plan Status:Home with Home Health Medically Cleared to Leave:09/21/2017 Discharge Date:09/22/2017 04:21 PM CM D/C Disposition:Home Health Service ADT D/C Disposition:[facility] Facility Projected Discharge Date:09/22/2017 11:00 AM Transportation at D/C:Wheelchair Van Discharge Delay Reason: Follow-Up Date:09/22/2017 11:00 AM Discharge Slot: Final Diagnosis: Placement Information Referral Type:Assisted Living Residence Referral ID:[id number] Provider Name:Domenica Victoria Address 1:[address] 2: City:[place] Selection Factors: State:[place] Patient Contact Information Contact Name:TIKA Relationship:Other Address: City: [facility] Phone: [facility]/Zip Code: Email: Financial Information Financial Class: Primary Plan Desc:MEDICARE OUTPATIENT Primary Plan Number:[id number] Secondary Plan Desc: Secondary Plan Number: Assessment Information [facility] CM Progress Note CM Note CM Note Notes: Patient admitted for chest pain, headache. Patient has a history of migraines, DM, asthma, Parkinsons, CAD. Patient lives in Assisted Living at [facility] (main: [phone]) and uses a wheelchair and oxygen at night. Per chart review and demographics sheet, patient's caregiver and POA is Roxie Weems. Called [facility] and left a voicemail with Daniela, [facility] [employer], to update re: patients admission. CM to follow. Date Signed: 09/21/2017 02:40 PM Electronically Signed By:Dawna Mendoza RN LACE LACE Acuity / Level of Care Answers: Was the patient admitted to hospital via the emergency department? Yes: Comorbidities - select Answers: Diabetes without all that apply complications Chronic pulmonary disease Emergency dept visits in Answers: 1 last 6 months Score: 7 Date Signed: 09/21/2017 02:41 PM Electronically Signed By:Dawna Mendoza RN Case Management Discharge Plan Note Case Management Discharge Discharge Order Complete? Answers: Yes Patient to Obtain Answers: Other Notes: [place] [facility] in charge of meds Transportation Arranged Answers: Other Notes: Transport arranged and paid for by [facility]. Used [employer] chair Transport will Pick (Date 09/22/2017 04:00 PM & Time) Faxed Final Orders Answers: Yes Agency/Facility Transfer Answers: Yes Report Printed & Faxed to Receiving Agency Discharge Comments Notes: 09/22/2017 Case management Note [employer] fax to [facility] [place] with d/c paperwork. Confimed receipt of fax with Kelley [phone] at [facility]. Provided coat for pt. Arranged for SW, PT and RN through [facility] services. Date Signed: 09/22/2017 04:49 PM Electronically Signed By:Sarai Pascual RN Intervention Information
--- NOTE | 2017-09-23 02:13 | GDS ---
[f rep st] DISCHARGE SUMMARY DISCHARGE DIAGNOSES: 1. Chest pain. 2. Viral syndrome. 3. Coronary artery disease. 4. Parkinson's. 5. Diabetes. 6. Chronic back pain, on continuous opioids. 7. Obstructive sleep apnea. 8. Hypertension. 9. Hyperlipidemia. 10. Depression. 11. Reactive airways. 12. Gastroesophageal reflux disease. HISTORY OF PRESENT ILLNESS: A 62-year-old female, who presents with multiple complaints, including c hest pressure lasting 12 hours at the time of presentation with associated shortness of breath, nonpr oductive cough, fevers, chills, myalgias. For details of the patient's initial presentation, please see the history and physical dated 09/21/2017. CONSULTATIVE SERVICES: None. PROCEDURES: On 09/22/2017, patient had a myocardial perfusion scan, which showed no evidence of acut e ischemia, ejection fraction of 65% with no focal wall motion abnormalities. There is an old infarc t noted in the left ventricle. On 09/21/2017, patient had a CTA of the thorax that was negative for pulmonary embolism. HOSPITAL COURSE BY ISSUE: 1. Chest pain. Patient's symptoms were associated with other symptoms that were more likely related to a viral syndrome than characteristic of cardiac ischemia. However, the patient has multiple risk factors, including known coronary artery disease for ischemia. Patient was brought into the hospita l overnight. Serial troponins, EKGs were negative. Telemetry monitoring was negative. The morning after presentation, the patient was taken for Lexiscanning that showed no inducible ischemia. The natty maurice has not seen her outpatient nurse researcher in quite some time. We have asked that [facility] call and get her scheduled to see Dr. Montiel in the next few weeks. Patient will continue on her leandra ropriate treatment for coronary artery disease, which includes aspirin, a statin, metoprolol. 2. Viral syndrome. Patient had a constellation of symptoms that seemed most consistent with a viral illness. She never developed measured fever here in the hospital. Her vital signs remained stable, and her laboratories remain normal. On the day of disposition, her white count was 8.3. She was sa tting at her recent baseline. Oxygen saturations last measured at 96% on room air. Patient is being discharged with recommendations for hydration and rest as she completes her recovery. We did order a respiratory viral panel that was negative for any identified pathogens. MEDICATIONS AT THE TIME OF DISPOSITION: Please reference the med rec printed on 09/22/2017. FOLLOWUP APPOINTMENTS: Include to be scheduled by [facility] with Dr. Montiel, as well as with her primary care provider for management of her multiple medical comorbidities. PENDING STUDIES: At the time of this dictation are none. TIME SPENT: I spent greater than 30 minutes in the planning and coordination of this discharge. /[id number]/MODL
[2017-09-24] MEDS ORDERED: fentaNYL 50 MCG PATCH TD SCH (09:00)
[2017-10-19] MEDS ORDERED: CHOLECALCIFEROL VIT D3 50,000 UNIT CAP PO SCH (09:00)
== END 2017-09-22 16:21 ==
LOC: EDUNIT# → F2W 13:10
PROVIDERS: ADMIT Hospitalist; ATTEND Hospitalist
DX: R07.9 Chest pain, unspecified (principal); B34.9 Viral infection, unspecified; R60.9 Edema, unspecified; I25.10 Atherosclerotic heart disease of native coronary artery without angina pectoris; G20 Parkinson's disease; E11.9 Type 2 diabetes mellitus without complications; M54.5 Low back pain; F11.20 Opioid dependence, uncomplicated; I10 Essential (primary) hypertension; E78.5 Hyperlipidemia, unspecified; F32.9 Major depressive disorder, single episode, unspecified; K21.9 Gastro-esophageal reflux disease without esophagitis; G43.909 Migraine, unspecified, not intractable, without status migrainosus; Z79.4 Long term (current) use of insulin; Z99.3 Dependence on wheelchair
CPT/HCPCS: 70450; 71020; 71275; 78452; 93005; 93017; 96374; 99285; A9500; G0378; J1650; J1815; J2785; Q9967

== ENCOUNTER 2018-01-20 13:39 | Emergency (ER) | payer OTHER, MEDICAID ==
--- NOTE | 2018-01-20 13:58 | CPEKG ---
Heart Rate: 74 RR Interval: 811 QRSD Interval: 86 QT Interval: 380 QTC Interval: 422 QRS Independence: 54 T Wave Independence: 52 EKG Severity - ABNORMAL ECG - EKG Impression: Normal sinus rhythm Electronically Signed By: Jacey Castro 20-Jan-2018 14:54:21
[2018-01-20] MEDS ORDERED: KETOROLAC 15 MG/1 ML SDV IVP ONE (14:07)
--- NOTE | 2018-01-20 14:12 | EDPHY ---
H & P Smoking Status: Never smoked Time Seen by Provider: 01/20/18 13:44 HPI/ROS: CHIEF COMPLAINT: Chest pain HISTORY OF PRESENT ILLNESS: 62-year-old female with CAD, diabetes and Parkinson 's disease presents with chest pain. Onset of chest pain at 4:00 a.m.. The chest pain was initially right-sided and increased with deep abrasion. She took Valium and went to sleep. When she awoke, she had a different type of chest pain. The chest pain was substernal and moderate. No associated symptoms. She thinks that the chest pain is related to increased stress. She has been experiencing a lot of stress at [facility] and has been quite upset. She would like me to control the pain and then send her back. Toradol has worked well for her in the past. She is DNR. Recent admission and September 2017 for chest pain. Negative CT pulmonary angiogram and negative myocardial perfusion scan for acute ischemia. REVIEW OF SYSTEMS: Constitutional: No fever, no chills Eyes: No visual changes ENT: No sore throat Respiratory: No cough, no shortness of breath Gastrointestinal: No nausea, no vomiting, no abdominal pain Genitourinary: No hematuria, no dysuria Musculoskeletal: No leg pain or swelling Skin: Yeast infection under the right breast Neurological: No headache, no weakness Psychiatric: Anxiety (Jacey Castro) Past Medical/Surgical History: Coronary artery disease Diabetes Parkinson's Morbid obesity Asthma (Jacey Castro) Social History: Lives at [facility] (Jacey Castro) Physical Exam: General Appearance: Alert, cooperative Eyes: Pupils equal and round, no conjunctival pallor or injection ENT, Mouth: Mucous membranes moist Neck: Normal inspection Respiratory: Lungs are clear to auscultation Cardiovascular: Regular rate and rhythm Gastrointestinal: Abdomen is soft, mild epigastric tenderness Neurological: A&O, nonfocal exam Skin: Warm and dry, erythematous rash under the right breast Extremities: Nontender Psychiatric: Fluctuating affect, tearful at times (Jacey Castro) Constitutional: Initial Vital Signs Temperature (C) 36.5 C 01/20/18 13:39 Heart Rate 82 01/20/18 13:39 Respiratory Rate 18 01/20/18 13:39 Blood Pressure 98/79 L 01/20/18 13:39 O2 Sat (%) 97 01/20/18 13:39 O2 Delivery Mode Nasal Cannula O2 (L/minute) 2 Allergies/Adverse Reactions: latex Allergy (Verified 01/20/18 13:45) Home Medications: Medication Instructions Recorded Aspirin [Aspirin 81mg (*)] 81 mg PO DAILY 08/07/16 Carbidopa/Levodopa 25/100Mg 2 tab PO TID@09,,19 08/07/16 [Sinemet 25/100 MG (*)] Cetirizine [ZyrTEC 10 mg (*)] 10 mg PO DAILY 08/07/16 DULoxetine [Cymbalta 60 MG (*)] 60 mg PO DAILY 08/07/16 Fenofibrate [Tricor] 48 mg PO DAILY 08/07/16 Gabapentin [Neurontin 400 MG (*)] 1,200 mg PO BID 08/07/16 Insulin Glargine [Lantus 100 32 units SC BID@,16 08/07/16 UNITS/ML (*)] MILNACIPRAN HCL [Savella 50 mg] 50 mg PO BID 08/07/16 Metoprolol Tartrate [Lopressor 25 12.5 mg PO BID 08/07/16 mg (*)] Multivitamins [Multivitamin (*)] 1 each PO DAILY 08/07/16 Omeprazole 20 mg PO BID 08/07/16 fentaNYL [Duragesic 50 MCG Patch 50 mcg TD Q72H 08/07/16 (*)] sitaGLIPtin PHOSPHATE [Januvia 100 100 mg PO DAILY 08/07/16 MG (*)] Acetaminophen [Tylenol 325mg (*)] 650 mg PO Q4 PRN 09/21/17 Albuterol [Ventolin Hfa Inhaler] 1 puffs IH Q4 PRN 09/21/17 Atorvastatin Calcium [Lipitor 40 40 mg PO DAILY@19 09/21/17 mg (*)] Cholecalciferol Vit D3 [Vitamin D3 50,000 unit PO Q30D 09/21/17 (*)] Diazepam [Valium 5 MG (*)] 5 mg PO Q6 PRN 09/21/17 Diclofenac Sodium 1% [Voltaren Gel 4 gm TP QID 09/21/17 (*)] Fluticasone Nasal [Flonase Nasal 2 sprays NASAL HS 09/21/17 [place]] HYDROmorphone HCL [Dilaudid 2 mg 2 mg PO HS 09/21/17 (*)] HYDROmorphone HCL [Dilaudid 2 mg 2 mg PO Q6 PRN 09/21/17 (*)] Insulin NPH Human [humULIN N 100 10 units SC BID@07,16 09/21/17 UNITS/ML (*)] Mineral Oil/Pet Hy-Phl [Aquaphor 1 leandra TP BID 09/21/17 Ointment (*)] Nystatin [Mycostatin Cream (RX)] 1 leandra TP DAILY PRN 09/21/17 Oxybutynin Chloride [OXYBUTYNIN 10 mg PO DAILY@20 09/21/17 CHLORIDE ER] SUMAtriptan [Imitrex 50 MG (*)] 50 mg PO Q2H PRN 09/21/17 Zolpidem Tartrate [Ambien 10 mg] 10 mg PO HS 09/21/17 Hydrocodone/APAP 5/325 [[place] 1 tab PO Q6H PRN #10 tab 01/20/18 5/325 (RX)] Medical Decision Making - Diagnostics Imaging: I viewed and interpreted images myself - Diagnostics EKG Interpretation: EKG interpreted by me reveals normal sinus rhythm, rate 74, no ST or T segment changes. (Jacey Castro) Imaging Results: CXR: NAD (Jacey Castro) ED Course/Re-evaluation: This patient presents with known coronary artery disease presents with chest pain. Stat EKG reveals no evidence of ischemia or dysrhythmia. Chest x-ray is unremarkable. The patient would simply like me to treat her pain and then to send her back to [place]. The patient clearly understands that if she is having a heart attack, we would not be able to treat this. She tells me that she is DNR and we would not resuscitate her anyway. After some discussion with the patient, we decided to try Toradol. Toradol 15 mg IV given. Laboratory studies ordered. 1445: No relief with Toradol. Morphine 4 mg IV given. 1500: Signed over to Dr. Connors at shift change. The plan is to treat the patient's pain and then send her back to [place], as she requests. If she changes her mind, we will certainly consider admitting her for further cardiac evaluation. (Jacey Castro) Differential Diagnosis: Differential diagnosis includes though it is not limited to pneumonia, pneumothorax, pulmonary embolism, aortic dissection, pericarditis, acute coronary syndrome. (Jacey Castro) Other Provider: I assumed care of this patient from Dr. Jacey Castro at change of shift, 3:00 p.m.. We are awaiting further laboratory evaluation. Patient's chemistries as well as troponin were normal. I held a discussion with the patient concerning her chest pain. She tells me that she has had chest discomfort since September when she was admitted to the hospital and had a cardiac evaluation. However, earlier today she developed more left-sided chest discomfort with up pressure component and some discomfort in her arm. Her pain is better with pain medications. She is not interested in further cardiac evaluation at this time, reporting that "they did not find anything in the past". However she does give a history of a prior history of pulmonary embolism. Patient underwent a CT scan of the chest to evaluate for PE; this was negative. On reassessment it has been greater than 4 hr since the patient's initial troponin. She had a repeat troponin drawn which remained negative. In light of her recent cardiac evaluation, chest discomfort present for many hours, 2 negative troponins, and the patient's desires to return to home, plan was made that the patient will be discharged to follow up with her manager convention and primary care physician. (Sabina Connors) - Data Points Laboratory Results: Laboratory Results 01/20/18 14:04 01/20/18 15:06 Medications Given: Discontinued Medications Hydrocodone Bitart/Acetaminophen ([place] 5/325mg Prepack#6) 1 btl TAKEHOME EDNOW ONE Stop: 01/20/18 20:44 Last Admin: 01/20/18 20:52 Dose: 1 btl Ketorolac Tromethamine (Toradol) 15 mg IVP EDNOW ONE Stop: 01/20/18 14:08 Last Admin: 01/20/18 14:15 Dose: 15 mg Morphine Sulfate (Morphine) 4 mg IVP EDNOW ONE Stop: 01/20/18 14:53 Last Admin: 01/20/18 15:45 Dose: 4 mg Morphine Sulfate (Morphine) 4 mg IVP EDNOW ONE Stop: 01/20/18 18:12 Last Admin: 01/20/18 18:51 Dose: 4 mg Departure - Departure Disposition: Home, Routine, Self-Care Clinical Impression: Chest pain Condition: Good Instructions: Hydrocodone/Acetaminophen (By mouth), Chest Pain (ED) Additional Instructions: 1. We are unable to fully exclude a cardiac cause of your discomfort based upon the testing available in the Emergency Department. However, given your stress test which was negative several months ago, and a normal evaluation in the emergency department, we feel outpatient follow-up is appropriate. 2. For this reason, we would like you to be seen by cardiology for consideration of additional testing within the next 3 days. 3. Please contact the manager convention you have been referred to schedule this appointment as soon as possible. 4. Please return to the Emergency Department immediately for any recurrent chest pain, difficulty breathing or other concerns. 5. You may take hydrocodone as needed for chest discomfort. Referrals: Bryant Lee DO [Doctor of Osteopathy] - As per Instructions Prescriptions: Hydrocodone/APAP 5/325 [[place] 5/325 (RX)] 1 tab PO Q6H PRN #10 tab PRN Reason: Pain
[2018-01-20 14:17] LABS: PLATELET COUNT 241 10^3/uL (150-400)
[2018-01-20] MEDS ORDERED: IOPAMIDOL (ISOVUE 370) 100 ML BTL IV ONE ×2 (18:15→18:23)
[2018-01-20] MEDS ORDERED: HYDROCOD/APAP 5/325 PREPACK#6 BTL TAKEHOME ONE (20:43)
[2018-01-20 22:23] VITALS: BP 136/66
== END 2018-01-20 22:23 | disposition home or self-care (01) ==
LOC: EDUNIT# → EDBD
DX: R07.9 Chest pain, unspecified (principal); E11.9 Type 2 diabetes mellitus without complications; J45.909 Unspecified asthma, uncomplicated; I25.10 Atherosclerotic heart disease of native coronary artery without angina pectoris; G20 Parkinson's disease; Z79.4 Long term (current) use of insulin; Z79.82 Long term (current) use of aspirin
CPT/HCPCS: 71046; 71275; 93005; 96374; 96375; 96376; 99285; J1885; J2270; Q9967

== ENCOUNTER 2018-01-26 12:56 | Inpatient (IN) | payer OTHER, MEDICAID ==
[2018-01-26] MEDS ORDERED: ALBUTEROL 3 ML DEYVIAL IH ONE (13:11)
[2018-01-26] MEDS ORDERED: IPRATROPIUM/ALBUTEROL 3 ML DEYVIAL IH ONE (13:11)
[2018-01-26] MEDS ORDERED: methylPREDNISolone SOD SUCC 125 MG/2 ML VIAL IVP ONE (13:11)
--- NOTE | 2018-01-26 13:14 | EDPHY ---
H & P Time Seen by Provider: 01/26/18 12:59 HPI/ROS: CHIEF COMPLAINT: Cough and shortness of breath HISTORY OF PRESENT ILLNESS: Patient is a history of reactive airway disease and has been sick for about a week with cough. Over the last 2 days her shortness of breath and wheezing has gotten worse and now she really can't do anything at home. Associated with mild to moderate sore throat which is add a consequence of decreased oral food and fluid intake. Feels associated decreased wheezing. Worse with exertion. REVIEW OF SYSTEMS: Eye: no change in vision ENT: HPI Cardiac: no chest pain or syncope Pulmonary: No hemoptysis Abdomen: no vomiting, diarrhea, abdominal pain Musculoskeletal: Chronic back pain unchanged Skin: no rash Neuro: no headache Constitutional: no fever : no urinary symptoms A comprehensive 10 point review of systems is otherwise negative aside from elements mentioned in the history of present illness. PAST MEDICAL HISTORY: H&P dated 09/21/2017 personally reviewed includes diabetes, Parkinson's, coronary artery disease, sleep apnea. Head injury and chronic back pain, hypertension hyperlipidemia, depression and reactive airway disease. Migraine headaches and irritable bowel. Social history: Assisted living General Appearance: Alert and conversant, cooperative. Eyes: No scleral icterus. Slight pharyngeal erythema but no trismus and no tonsillar swelling or exudate, no peritonsillar swelling, uvula midline. ENT, Mouth: Normal mucous membranes. Respiratory: Bilateral expiratory wheezes with increased work of breathing and no focal lung sounds. Cardiovascular: Regular rate and rhythm. Gastrointestinal: Abdomen is soft and non tender. Neurological: Alert, face symmetric, normal motor and sensory in extremities. Skin: Warm and dry, no rashes. Musculoskeletal: Bilateral trace peripheral edema but no calf tenderness. Psychiatric: Not agitated. Emergency Department course/MDM: Patient presents with more likely viral URI causing worsening of her reactive airway disease now with hypoxemia on 2 L nasal cannula is 88%. She usually only wears oxygen at night. She is also quite debilitated, plan for x-ray, DuoNeb and albuterol neb, 125 mg IV Solu-Medrol discussed and consented. EKG and troponin. Chest x-ray negative, personally reviewed at 2:30 p.m.. Admission for reactive airway disease and hypoxemia. 1449: results and plan discussed, mid ''s on nasal cannula. Smoking Status: Never smoked Constitutional: Initial Vital Signs Temperature (C) 36.6 C 01/26/18 13:13 Heart Rate 87 01/26/18 13:13 Respiratory Rate 16 01/26/18 13:13 Blood Pressure 154/111 H 01/26/18 13:13 O2 Sat (%) 97 01/26/18 13:13 O2 Delivery Mode Nasal Cannula O2 (L/minute) 3 Allergies/Adverse Reactions: latex Allergy (Verified 01/20/18 13:45) Home Medications: Medication Instructions Recorded Aspirin [Aspirin 81mg (*)] 81 mg PO DAILY 08/07/16 Carbidopa/Levodopa 25/100Mg 2 tab PO TID@,,08/07/16 [Sinemet 25/100 MG (*)] DULoxetine [Cymbalta 60 MG (*)] 60 mg PO DAILY 08/07/16 Fenofibrate [Tricor] 48 mg PO DAILY 08/07/16 Gabapentin [Neurontin 400 MG (*)] 1,200 mg PO BID@08,08/07/16 Insulin Glargine [Lantus 100 36 units SC BID@08,08/07/16 UNITS/ML (*)] MILNACIPRAN HCL [Savella 50 mg] 75 mg PO BID@,16 08/07/16 Metoprolol Tartrate [Lopressor 25 12.5 mg PO BID@,08/07/16 mg (*)] Multivitamins [Multivitamin (*)] 1 each PO DAILY 08/07/16 Omeprazole 20 mg PO BID@08,16 08/07/16 fentaNYL [Duragesic 50 MCG Patch 50 mcg TD Q72H 08/07/16 (*)] sitaGLIPtin PHOSPHATE [Januvia 100 100 mg PO DAILY 08/07/16 MG (*)] Acetaminophen [Tylenol 325mg (*)] 650 mg PO Q4 PRN 09/21/17 Atorvastatin Calcium [Lipitor 40 40 mg PO DAILY@19 09/21/17 mg (*)] Cholecalciferol Vit D3 [Vitamin D3 50,000 unit PO Q30D 09/21/17 (*)] Diazepam [Valium 5 MG (*)] 5 mg PO Q6 PRN 09/21/17 Diclofenac Sodium 1% [Voltaren Gel 4 gm TP QID@08,12,16,20 12/17 (*)] Fluticasone Nasal [Flonase Nasal 2 sprays NASAL HS 09/21/17 [place]] HYDROmorphone HCL [Dilaudid 2 mg 2 mg PO HS 09/21/17 (*)] HYDROmorphone HCL [Dilaudid 2 mg 2 mg PO Q6HRS PRN 09/21/17 (*)] Insulin NPH Human [humULIN N 100 10 units SC BID@08,09/21/17 UNITS/ML (*)] Mineral Oil/Pet Hy-Phl [Aquaphor 1 leandra TP BID@,09/21/17 Ointment (*)] Nystatin [Mycostatin Cream (RX)] 1 leandra TP DAILY PRN 09/21/17 Oxybutynin Chloride [OXYBUTYNIN 10 mg PO DAILY@20 09/21/17 CHLORIDE ER] SUMAtriptan [Imitrex 50 MG (*)] 50 mg PO Q2H PRN 09/21/17 Zolpidem Tartrate [Ambien 10 mg] 10 mg PO HS 09/21/17 Hydrocodone/APAP 5/325 [[place] 1 tab PO Q6H PRN #10 tab 01/20/18 5/325 (RX)] Albuterol [Proventil Inhaler HFA 1 puffs IH Q4H PRN 01/26/18 (*)] Capsaicin [Zostrix] 1 leandra TP Q4HRS PRN 01/26/18 Dimethicone/Zinc Oxide [Halie 1 leandra TP DAILY PRN 01/26/18 Protect Cream] Lidocaine/Hydrocortisone AC 1 leandra RC BID@,01/26/18 [Lidocaine-Hc 3-0.5% Cream] Magnesium Oxide [Magnesium Oxide 400 mg PO DAILY PRN 01/26/18 400 mg (*)] Nystatin Powder [Mycostatin Powder 1 leandra TP DAILY PRN 01/26/18 (RX)] Medical Decision Making - Diagnostics EKG Interpretation: 12-lead EKG interpreted by me; official reading is in trace master. My interpretation is sinus rhythm with nonspecific anterior T-wave flattening rate 86. Imaging Results: Chest x-ray personally interpreted negative for pneumonia or CHF. Imaging: I viewed and interpreted images myself Differential Diagnosis: Differential diagnosis considered for shortness of breath including but not limited to pulmonary infectious process, COPD, asthma, pulmonary embolus and congestive heart failure. Consult/Admit Bed Type: [place] [id number] - Data Points Laboratory Results: Laboratory Results 01/26/18 13:29 01/26/18 13:29 01/26/18 01/26/18 01/26/18 13:55 13:29 13:29 WBC RBC Hgb Hct MCV MCH MCHC RDW Plt Count MPV Neut % (Auto) Lymph % (Auto) [place] % (Auto) Eos % (Auto) Baso % (Auto) Nucleat RBC Rel Count Absolute Neuts (auto) Absolute Lymphs (auto) Absolute Monos (auto) Absolute Eos (auto) Absolute Basos (auto) Absolute Nucleated RBC Immature Gran % Immature Gran # PT 13.1 SEC SEC (12.0-15.0) INR 0.97 (0.83-1.16) APTT 25.6 SEC SEC (23.0-38.0) VBG Lactic Acid 1.3 mmol/L mmol/L (0.7-2.1) Sodium 136 mEq/L mEq/L (135-145) Potassium 5.2 mEq/L mEq/L (3.5-5.2) Chloride 95 mEq/L L mEq/L (97-110) Carbon Dioxide 29 mEq/l mEq/l (22-31) Anion Gap 12 mEq/L mEq/L (8-16) BUN 19 mg/dL mg/dL (7-23) Creatinine 0.9 mg/dL mg/dL (0.6-1.0) Estimated GFR > 60 Glucose 183 mg/dL H mg/dL (70-100) Calcium 9.4 mg/dL mg/dL (8.5-10.4) Total Bilirubin 0.9 mg/dL mg/dL (0.1-1.4) Troponin I < 0.012 ng/mL ng/mL (0.000-0.034) Specimen Hemolysis 114 01/26/18 13:29 WBC 9.47 10^3/uL 10^3/uL (3.80-9.50) RBC 5.40 10^6/uL H 10^6/uL (4.18-5.33) Hgb 15.1 g/dL g/dL (12.6-16.3) Hct 47.8 % H % (38.0-47.0) MCV 88.5 fL fL (81.5-99.8) MCH 28.0 pg pg (27.9-34.1) MCHC 31.6 g/dL L g/dL (32.4-36.7) RDW 14.2 % % (11.5-15.2) Plt Count 232 10^3/uL 10^3/uL (150-400) MPV 10.0 fL fL (8.7-11.7) Neut % (Auto) 68.6 % % (39.3-74.2) Lymph % (Auto) 15.0 % % (15.0-45.0) [place] % (Auto) 11.4 % % (4.5-13.0) Eos % (Auto) 4.1 % % (0.6-7.6) Baso % (Auto) 0.6 % % (0.3-1.7) Nucleat RBC Rel Count 0.0 % % (0.0-0.2) Absolute Neuts (auto) 6.49 10^3/uL 10^3/uL (1.70-6.50) Absolute Lymphs (auto) 1.42 10^3/uL 10^3/uL (1.00-3.00) Absolute Monos (auto) 1.08 10^3/uL H 10^3/uL (0.30-0.80) Absolute Eos (auto) 0.39 10^3/uL 10^3/uL (0.03-0.40) Absolute Basos (auto) 0.06 10^3/uL 10^3/uL (0.02-0.10) Absolute Nucleated RBC 0.00 10^3/uL 10^3/uL (0-0.01) Immature Gran % 0.3 % % (0.0-1.1) Immature Gran # 0.03 10^3/uL 10^3/uL (0.00-0.10) PT INR APTT VBG Lactic Acid Sodium Potassium Chloride Carbon Dioxide Anion Gap BUN Creatinine Estimated GFR Glucose Calcium Total Bilirubin Troponin I Specimen Hemolysis Medications Given: Discontinued Medications Albuterol (Proventil Neb) 3 ml IH EDNOW ONE Stop: 01/26/18 13:12 Last Admin: 01/26/18 13:32 Dose: 3 ml Albuterol/Ipratropium (Duoneb) 3 ml IH EDNOW ONE Stop: 01/26/18 13:12 Last Admin: 01/26/18 13:32 Dose: 3 ml Methylprednisolone Sodium Succinate (Solu-Medrol) 125 mg IVP EDNOW ONE Stop: 01/26/18 13:12 Last Admin: 01/26/18 13:32 Dose: 125 mg Departure - Departure Disposition: [facility] Inpatient Acute Clinical Impression: Acute bronchitis Qualifiers: Bronchitis organism: unspecified organism Qualified Code(s): J20.9 - Acute bronchitis, unspecified Exacerbation of asthma Qualifiers: Asthma severity: moderate Asthma persistence: unspecified Qualified Code(s): J45.901 - Unspecified asthma with (acute) exacerbation Condition: Good Referrals: Patient,NotPresent [Unknown] - As per Instructions
--- NOTE | 2018-01-26 13:31 | CPEKG ---
Heart Rate: 86 RR Interval: 698 P-R Interval: 140 QRSD Interval: 80 QT Interval: 340 QTC Interval: 407 P [place]: 51 QRS [place]: 29 T Wave [place]: 42 EKG Severity - BORDERLINE ECG - EKG Impression: SINUS RHYTHM EKG Impression: BORDERLINE T ABNORMALITIES, ANTERIOR LEADS Electronically Signed By: Denzel Aguiar 26-Jan-2018 13:31:35
[2018-01-26 13:41] LABS: PLATELET COUNT 232 10^3/uL (150-400)
[2018-01-26 13:53] LABS: INR 0.97 (0.83-1.16); PROTIME(PATIENT) 13.1 SEC (12.0-15.0)
[2018-01-26] MEDS ORDERED: NYSTATIN POWDER 15 GM BTL TP PRN (14:53)
[2018-01-26] MEDS ORDERED: ZINC OXIDE TP PRN (14:53)
[2018-01-26] MEDS ORDERED: DIMETHICONE TP PRN (14:53)
[2018-01-26] MEDS ORDERED: NYSTATIN 15 GM CR TUBE TP PRN (14:53)
[2018-01-26] MEDS ORDERED: MAGNESIUM OXIDE 400 MG TAB PO PRN (14:53)
[2018-01-26] MEDS ORDERED: HYDROCODONE/APAP 5/325 TAB PO PRN (14:53)
[2018-01-26] MEDS ORDERED: ACETAMINOPHEN 325 MG TAB PO PRN (14:53)
[2018-01-26] MEDS ORDERED: DIAZEPAM 5 MG TAB PO PRN (14:53)
[2018-01-26] MEDS ORDERED: ONDANSETRON DISINTEGRATING 4 MG TAB PO PRN (14:58)
[2018-01-26] MEDS ORDERED: ALBUTEROL 3 ML DEYVIAL IH PRN (14:58)
[2018-01-26] MEDS ORDERED: ONDANSETRON 4 MG/2 ML VIAL IVP PRN (14:58)
[2018-01-26] MEDS ORDERED: D50W 25 GM/50 ML VIAL IVP PRN (15:03)
--- NOTE | 2018-01-26 15:22 | PDGENHP ---
History and Physical - Chief Complaint SOB - History of Present Illness 62 yo Female with history of reactive airway disease and has been sick for about a week with cough. Over the last 2 days her shortness of breath and wheezing has gotten worse and now she really can't do anything at home. Associated with mild to moderate sore throat which has resulted in a decrease of oral food and fluid intake. + Wheeze. Worse with exertion. She reports tactile fever. no fever since arriving here. no e/o infiltrate on CXR. She denies chest pain or palpitations. She has chronic leg swelling and this is unchanged. no n/v/d. PAST MEDICAL HISTORY: diabetes, Parkinson's, coronary artery disease, sleep apnea. Head injury and chronic back pain, hypertension hyperlipidemia, depression and reactive airway disease. Migraine headaches and irritable bowel. Social history: Assisted living, non smoker FmHx: [place] ED course: solumedrol, nebs Lab/Data: No leukocytosis CXR with no clear infiltrates. Peribronchial thickening, personally reviewed on 3 LO History Information - Allergies/Home Medication List Allergies/Adverse Reactions: latex Allergy (Verified 01/20/18 13:45) Home Medications: Aspirin [Aspirin 81mg (*)] 81 mg PO DAILY 08/07/16 [Last Taken 01/26/18] Carbidopa/Levodopa 25/100Mg [Sinemet 25/100 MG (*)] 2 tab PO TID@, [Last Taken 01/26/18 09:00] DULoxetine [Cymbalta 60 MG (*)] 60 mg PO DAILY 08/07/16 [Last Taken 01/26/18] Fenofibrate [Tricor] 48 mg PO DAILY 08/07/16 [Last Taken 01/26/18] Gabapentin [Neurontin 400 MG (*)] 1,200 mg PO BID@08/07/16 [Last Taken ] Insulin Glargine [Lantus 100 UNITS/ML (*)] 36 units SC BID@08/07/16 [Last Taken 01/26/18] MILNACIPRAN HCL [Savella 50 mg] 75 mg PO BID@08/07/16 [Last Taken 01/26/18 ] Metoprolol Tartrate [Lopressor 25 mg (*)] 12.5 mg PO BID@08/07/16 [Last Taken 01/26/18] Multivitamins [Multivitamin (*)] 1 each PO DAILY 08/07/16 [Last Taken 01/26/18] Omeprazole 20 mg PO BID@,08/07/16 [Last Taken 01/26/18] fentaNYL [Duragesic 50 MCG Patch (*)] 50 mcg TD Q72H 08/07/16 [Last Taken ] sitaGLIPtin PHOSPHATE [Januvia 100 MG (*)] 100 mg PO DAILY 08/07/16 [Last Taken 01/26/18] Acetaminophen [Tylenol 325mg (*)] 650 mg PO Q4 PRN 09/21/17 [Last Taken 09/17/17 ] Atorvastatin Calcium [Lipitor 40 mg (*)] 40 mg PO DAILY@09/21/17 [Last Taken 01/25/18] Cholecalciferol Vit D3 [Vitamin D3 (*)] 50,000 unit PO Q30D 09/21/17 [Last Taken 01/06/18] Diazepam [Valium 5 MG (*)] 5 mg PO Q6 PRN 09/21/17 [Last Taken 01/26/18 08:00] Diclofenac Sodium 1% [Voltaren Gel (*)] 4 gm TP QID@,,,09/21/17 [Last Taken 01/26/18 12:00] Fluticasone Nasal [Flonase Nasal [place]] 2 sprays NASAL HS 09/21/17 [Last Taken 01/25/18] HYDROmorphone HCL [Dilaudid 2 mg (*)] 2 mg PO HS 09/21/17 [Last Taken 01/25/18] HYDROmorphone HCL [Dilaudid 2 mg (*)] 2 mg PO Q6HRS PRN 09/21/17 [Last Taken 01:47] Insulin NPH Human [humULIN N 100 UNITS/ML (*)] 10 units SC BID@,09/21/17 [ Last Taken 01/26/18] Mineral Oil/Pet Hy-Phl [Aquaphor Ointment (*)] 1 leandra TP BID@09/21/17 [ Last Taken 01/26/18] Nystatin [Mycostatin Cream (RX)] 1 leandra TP DAILY PRN 09/21/17 [Last Taken ] Oxybutynin Chloride [OXYBUTYNIN CHLORIDE ER] 10 mg PO DAILY@20 09/21/17 [Last Taken 01/25/18] SUMAtriptan [Imitrex 50 MG (*)] 50 mg PO Q2H PRN 09/21/17 [Last Taken 01/20/18] Zolpidem Tartrate [Ambien 10 mg] 10 mg PO HS 09/21/17 [Last Taken 01/25/18] Albuterol [Proventil Inhaler HFA (*)] 1 puffs IH Q4H PRN 01/26/18 [Last Taken Unknown] Capsaicin [Zostrix] 1 leandra TP Q4HRS PRN 01/26/18 [Last Taken 01/25/18 08:00] Dimethicone/Zinc Oxide [Halie Protect Cream] 1 leandra TP DAILY PRN 01/26/18 [Last Taken Unknown] Lidocaine/Hydrocortisone AC [Lidocaine-Hc 3-0.5% Cream] 1 leandra RC BID@08,16 01/26 [Last Taken 01/26/18 08:00] Magnesium Oxide [Magnesium Oxide 400 mg (*)] 400 mg PO DAILY PRN 01/26/18 [Last Taken Unknown] Nystatin Powder [Mycostatin Powder (RX)] 1 leandra TP DAILY PRN 01/26/18 [Last Taken Unknown] I have personally reviewed and updated: medical history, social history - Social History Smoking Status: Never smoked Review of Systems Review of Systems: ROS: 10pt was reviewed & negative except for what was stated in HPI & below Physical Exam Physical Exam: Temp Pulse Resp BP Pulse Ox 36.6 C 91 18 148/82 H 95 01/26/18 13:13 01/26/18 15:12 01/26/18 15:12 01/26/18 15:12 01/26/18 15:12 O2 (L/minute) 3 Constitutional: no apparent distress Eyes: PERRL, EOMI Ears, Nose, Mouth, Throat: moist mucous membranes, hearing normal Cardiovascular: regular rate and rhythym, edema (trace) Respiratory: no respiratory distress, reduced air movement, expiratory wheeze Gastrointestinal: normoactive bowel sounds, soft, non-tender abdomen Skin: warm Musculoskeletal: generalized weakness Neurologic: AAOx3 Psychiatric: interacting appropriately, not anxious, not encephalopathic Lymph, Heme, Immunologic: No petechiae Lab Data & Imaging Review 01/26/18 13:29 01/26/18 13:29 WBC 9.47 10^3/uL (3.80-9.50) 01/26/18 13:29 RBC 5.40 10^6/uL (4.18-5.33) H 01/26/18 13:29 Hgb 15.1 g/dL (12.6-16.3) 01/26/18 13:29 Hct 47.8 % (38.0-47.0) H 01/26/18 13:29 MCV 88.5 fL (81.5-99.8) 01/26/18 13: MCH 28.0 pg (27.9-34.1) 01/26/18 13: MCHC 31.6 g/dL (32.4-36.7) L 01/26/18 13: RDW 14.2 % (11.5-15.2) 01/26/18 13:29 Plt Count 232 10^3/uL (150-400) 01/26/18 13: MPV 10.0 fL (8.7-11.7) 01/26/18 13:29 Neut % (Auto) 68.6 % (39.3-74.2) 01/26/18 13: Lymph % (Auto) 15.0 % (15.0-45.0) 01/26/18 13: [place] % (Auto) 11.4 % (4.5-13.0) 01/26/18 13:29 Eos % (Auto) 4.1 % (0.6-7.6) 01/26/18 13:29 Baso % (Auto) 0.6 % (0.3-1.7) 01/26/18 13: Nucleat RBC Rel Count 0.0 % (0.0-0.2) 01/26/18 13:29 Absolute Neuts (auto) 6.49 10^3/uL (1.70-6.50) 01/26/18 13:29 Absolute Lymphs (auto) 1.42 10^3/uL (1.00-3.00) 01/26/18 13:29 Absolute Monos (auto) 1.08 10^3/uL (0.30-0.80) H 01/26/18 13:29 Absolute Eos (auto) 0.39 10^3/uL (0.03-0.40) 01/26/18 13:29 Absolute Basos (auto) 0.06 10^3/uL (0.02-0.10) 01/26/18 13: Absolute Nucleated RBC 0.00 10^3/uL (0-0.01) 01/26/18 13:29 Immature Gran % 0.3 % (0.0-1.1) 01/26/18 13: Immature Gran # 0.03 10^3/uL (0.00-0.10) 01/26/18 13: PT 13.1 SEC (12.0-15.0) 01/26/18 13:29 INR 0.97 (0.83-1.16) 01/26/18 13: APTT 25.6 SEC (23.0-38.0) 01/26/18 13:29 VBG Lactic Acid 1.3 mmol/L (0.7-2.1) 01/26/18 13:55 Sodium 136 mEq/L (135-145) 01/26/18 13:29 Potassium 5.2 mEq/L (3.5-5.2) 01/26/18 13:29 Chloride 95 mEq/L (97-110) L 01/26/18 13:29 Carbon Dioxide 29 mEq/l (22-31) 01/26/18 13:29 Anion Gap 12 mEq/L (8-16) 01/26/18 13:29 BUN 19 mg/dL (7-23) 01/26/18 13:29 Creatinine 0.9 mg/dL (0.6-1.0) 01/26/18 13:29 Estimated GFR > 60 01/26/18 13:29 Glucose 183 mg/dL (70-100) H 01/26/18 13:29 Calcium 9.4 mg/dL (8.5-10.4) 01/26/18 13:29 Total Bilirubin 0.9 mg/dL (0.1-1.4) 01/26/18 13:29 Troponin I < 0.012 ng/mL (0.000-0.034) 01/26/18 13:29 Specimen Hemolysis 114 01/26/18 13:29 Assessment & Plan Assessment: #Asthma with exacerbation #Acute viral Bronchitis #Acute Hypoxic Resp Failure #Chronic Pain Syndrome #IDDM #HTN #GERD Plan: Observation Cont Solu-Medrol. Can decrease steroid dose and likely change to oral tomorrow I have not started an abx as I dont see a clear source. If no clinical improvement tomorrow, could consider starting Azithromycin. Scheduled and PRN nebs Await resp panel cont home meds as appropriate optimize glucose mgmt PT evaluation SCD's for now.
[2018-01-26] MEDS: ALBUTEROL 3 ML DEYVIAL IH SCH ×2 (16:58→21:12)
[2018-01-26] MEDS: HYDROmorphONE/DILAUDID 2 MG TAB PO PRN (17:33)
[2018-01-26] MEDS: INSULIN NPH HUMAN 100 UNITS/ML SYR SC SCH (18:18)
[2018-01-26] MEDS: INSULIN GLARGINE 100 UNITS/ML UNIT SC SCH (18:19)
[2018-01-26] MEDS: DICLOFENAC SODIUM 1% 100 GM GEL TP SCH ×2 (18:24→21:18)
[2018-01-26] MEDS: GABAPENTIN 400 MG CAP PO SCH (18:34)
[2018-01-26] MEDS: ATORVASTATIN CALCIUM 40 MG TAB PO SCH (18:34)
[2018-01-26] MEDS: METOPROLOL TARTRATE 25 MG TAB PO SCH (18:35)
[2018-01-26] MEDS: CARBIDOPA/LEVODOPA 25 MG/100 MG TAB PO SCH (18:36)
[2018-01-26] MEDS: LIDOCAINE RC SCH (18:46)
[2018-01-26] MEDS: HYDROCORTISONE RC SCH (18:46)
[2018-01-26] MEDS: MILNACIPRAN HCL PO SCH (18:46)
[2018-01-26] MEDS ORDERED: SUMAtriptan 50 MG TAB PO PRN (20:43)
[2018-01-26] MEDS: AQUAPHOR OINTMENT 3.5 OZ JAR TP SCH (21:17)
[2018-01-26] MEDS: FLUTICASONE NASAL 120 SPRAYS/16 GM MDI EACHNARE SCH (21:17)
[2018-01-26] MEDS: SUMAtriptan 50 MG TAB PO PRN (21:18)
[2018-01-26] MEDS: methylPREDNISolone SOD SUCC 125 MG/2 ML VIAL IVP SCH (21:18)
[2018-01-26] MEDS: OXYBUTYNIN 5 MG EXT REL TAB PO SCH (21:19)
[2018-01-26] MEDS: ZOLPIDEM TARTRATE 5 MG TAB PO SCH (21:20)
[2018-01-26] MEDS: HYDROmorphONE/DILAUDID 2 MG TAB PO SCH (21:20)
[2018-01-27] MEDS: HYDROmorphONE/DILAUDID 2 MG TAB PO PRN (00:32)
[2018-01-27] MEDS: CAPSAICIN 0.025% CREAM TP PRN ×2 (00:36→20:22)
[2018-01-27] MEDS: ALBUTEROL 3 ML DEYVIAL IH SCH ×6 (02:46→21:34)
[2018-01-27 05:24] LABS: PLATELET COUNT 268 10^3/uL (150-400)
[2018-01-27] MEDS: methylPREDNISolone SOD SUCC 125 MG/2 ML VIAL IVP SCH ×2 (08:28→20:19)
[2018-01-27] MEDS: INSULIN GLARGINE 100 UNITS/ML UNIT SC SCH ×2 (08:28→16:02)
[2018-01-27] MEDS: INSULIN NPH HUMAN 100 UNITS/ML SYR SC SCH ×2 (08:28→16:02)
[2018-01-27] MEDS: GABAPENTIN 400 MG CAP PO SCH ×2 (08:29→17:59)
[2018-01-27] MEDS: METOPROLOL TARTRATE 25 MG TAB PO SCH ×2 (08:30→18:20)
[2018-01-27] MEDS: ASPIRIN 81 MG CHEWABLE TAB PO SCH (08:30)
[2018-01-27] MEDS: DULoxetine 60 MG CAP PO SCH (08:30)
[2018-01-27] MEDS: CARBIDOPA/LEVODOPA 25 MG/100 MG TAB PO SCH ×3 (08:30→18:00)
[2018-01-27] MEDS: PANTOPRAZOLE SODIUM 40 MG TAB PO SCH ×2 (08:31→16:02)
[2018-01-27] MEDS: MULTIVITAMINS 1 EACH TAB PO SCH (08:31)
[2018-01-27] MEDS: FENOFIBRATE 48 MG TAB PO SCH (08:31)
[2018-01-27] MEDS: HYDROCORTISONE RC SCH ×2 (08:35→16:05)
[2018-01-27] MEDS: LIDOCAINE RC SCH ×2 (08:35→16:05)
[2018-01-27] MEDS: DICLOFENAC SODIUM 1% 100 GM GEL TP SCH ×5 (08:35→20:21)
[2018-01-27] MEDS: MILNACIPRAN HCL PO SCH ×2 (08:36→16:06)
[2018-01-27] MEDS: AQUAPHOR OINTMENT 3.5 OZ JAR TP SCH ×2 (08:36→18:22)
[2018-01-27] MEDS ORDERED: D50W 25 GM/50 ML SYR IVP PRN (12:20)
--- NOTE | 2018-01-27 13:51 | HOSPPROG ---
Hospitalist Progress Note Assessment/Plan: 62-year-old female presents emergency room complaints of shortness of breath and cough. This is my 1st encounter with the patient, chart reviewed. #Asthma with exacerbation Cont Solu-Medrol. Can decrease steroid dose and likely change to oral tomorrow still significant wheezing Scheduled and PRN nebs resp panel shows human metapneumovirus abx not indicated, follow consider azithro tomorrow if not improving # acute hypoxemic respiratory failure Continue supportive oxygen add mucinex #Acute Pain Syndrome stable #IDDM add SSI diabetic diet BG elevated in setting of steroids and acute illness #HTN stable #GERD home meds # morbid obesity Stable #Dispo change to inpt status requires further care in hospital Subjective: Still feeling ill. Not much better then yesterday. Conts to cough. Objective: Vital Signs Temp Pulse Resp BP Pulse Ox 36.6 C 87 16 140/74 H 95 01/27/18 12:00 01/27/18 12:00 01/27/18 12:00 01/27/18 12:00 01/27/18 12:00 Laboratory Results 01/27/18 04:51 01/27/18 04:51 01/26/18 01/27/18 01/28/18 05:59 05:59 05:59 Intake Total 250 Balance 250 PT 13.1 SEC (12.0-15.0) 01/26/18 13:29 INR 0.97 (0.83-1.16) 01/26/18 13:29 - Physical Exam Constitutional: not in pain, chronically ill appearing, obese Eyes: PERRL, anicteric sclera, EOMI Ears, Nose, Mouth, Throat: moist mucous membranes, hearing normal, ears appear normal Cardiovascular: No JVD, No tachycardia, No edema Respiratory: reduced air movement, expiratory wheeze, rhonchi Gastrointestinal: normoactive bowel sounds, No tenderness, No ascites Skin: warm, normal color, No mottled Musculoskeletal: normal joint ROM, no joint effusions, generalized weakness Neurologic: AAOx3 Psychiatric: interacting appropriately, not anxious, not encephalopathic, thought process linear ICD10 Worksheet Patient Problems: Problems Problem Status Onset Multiple contusions Acute Ankle sprain Acute Fracture of left distal radius Acute Head injury Acute Periorbital hematoma of right eye Acute Acute bronchitis Acute Exacerbation of asthma Acute
--- NOTE | 2018-01-27 16:06 | PDMN ---
Medical Necessity Medical necessity: Change to IP, as of 01/27/18, per [facility]RILL[facility]; los >2 mn for ongoing management of asthma exacerbation w/significant wheezing, cough & acute hypoxemic respiratory failure; admit for further monitoring, IV Solu-Medrol, respiratory supportive care & therapies; hx diabetes, parkinsons, HTN, CAD, RAD , sleep apnea, head injury, morbid obesity; per progress note & order 01/27/18
[2018-01-27] MEDS: guaiFENesin 600 MG TAB.ER PO SCH ×2 (16:20→20:20)
--- NOTE | 2018-01-27 17:43 | ASMTCMCOM ---
CM Note CM Note Notes: Pt admitted for pneumonia, lives at [facility]. PT recommends pt can return to [place], CM will discuss with BD in am. DC Plan: TBD Date Signed: 01/27/2018 05:42 PM Electronically Signed By:Umm Deal RN
[2018-01-27] MEDS: ATORVASTATIN CALCIUM 40 MG TAB PO SCH (18:00)
[2018-01-27] MEDS: INSULIN LISPRO 100 UNIT/ML SC SCH (18:11)
[2018-01-27] MEDS: ENOXAPARIN 40 MG/0.4 ML SYR SC SCH (20:19)
[2018-01-27] MEDS: OXYBUTYNIN 5 MG EXT REL TAB PO SCH (20:20)
[2018-01-27] MEDS: HYDROmorphONE/DILAUDID 2 MG TAB PO SCH (20:20)
[2018-01-27] MEDS: FLUTICASONE NASAL 120 SPRAYS/16 GM MDI EACHNARE SCH (20:21)
[2018-01-27] MEDS: ZOLPIDEM TARTRATE 5 MG TAB PO SCH (21:46)
[2018-01-27] MEDS ORDERED: VANCOMYCIN 2 GM in D5W 500 ML IV ONE (23:30)
[2018-01-28] MEDS: ALBUTEROL 3 ML DEYVIAL IH SCH ×7 (01:52→20:18)
[2018-01-28] MEDS: HYDROmorphONE/DILAUDID 2 MG TAB PO PRN ×2 (04:49→14:33)
[2018-01-28] MEDS: methylPREDNISolone SOD SUCC 125 MG/2 ML VIAL IVP SCH (08:51)
[2018-01-28] MEDS: ENOXAPARIN 40 MG/0.4 ML SYR SC SCH ×2 (08:51→19:50)
[2018-01-28] MEDS: fentaNYL 50 MCG PATCH TD SCH (08:52)
[2018-01-28] MEDS: INSULIN LISPRO 100 UNIT/ML SC SCH ×4 (08:53→19:49)
[2018-01-28] MEDS: METOPROLOL TARTRATE 25 MG TAB PO SCH ×2 (08:54→19:31)
[2018-01-28] MEDS: INSULIN GLARGINE 100 UNITS/ML UNIT SC SCH ×2 (08:54→17:10)
[2018-01-28] MEDS: INSULIN NPH HUMAN 100 UNITS/ML SYR SC SCH ×2 (08:54→17:10)
[2018-01-28] MEDS: guaiFENesin 600 MG TAB.ER PO SCH ×2 (08:57→20:28)
[2018-01-28] MEDS: DULoxetine 60 MG CAP PO SCH (08:57)
[2018-01-28] MEDS: CARBIDOPA/LEVODOPA 25 MG/100 MG TAB PO SCH ×3 (08:57→19:35)
[2018-01-28] MEDS: FENOFIBRATE 48 MG TAB PO SCH (08:57)
[2018-01-28] MEDS: ASPIRIN 81 MG CHEWABLE TAB PO SCH (08:57)
[2018-01-28] MEDS: PANTOPRAZOLE SODIUM 40 MG TAB PO SCH ×2 (08:57→17:10)
[2018-01-28] MEDS: GABAPENTIN 400 MG CAP PO SCH ×2 (08:58→19:31)
[2018-01-28] MEDS: MULTIVITAMINS 1 EACH TAB PO SCH (08:58)
[2018-01-28] MEDS: DICLOFENAC SODIUM 1% 100 GM GEL TP SCH ×4 (08:58→19:36)
[2018-01-28] MEDS: AQUAPHOR OINTMENT 3.5 OZ JAR TP SCH ×2 (08:59→19:36)
[2018-01-28] MEDS ORDERED: AZITHROMYCIN IV 500 MG in NS 250 ML IV SCH (11:00)
[2018-01-28] MEDS ORDERED: VANCOMYCIN 1.25 GM in NS 250 ML IV SCH (12:00)
[2018-01-28] MEDS: SUMAtriptan 50 MG TAB PO PRN (12:09)
--- NOTE | 2018-01-28 12:30 | HOSPPROG ---
Hospitalist Progress Note Assessment/Plan: 62-year-old female presents emergency room complaints of shortness of breath and cough. #Asthma with exacerbation on Solu-Medrol, possible decrease and change to PO in am still significant wheezing Scheduled and PRN nebs resp panel shows human metapneumovirus will start azithro, pt not much improvement # acute hypoxemic respiratory failure Continue supportive oxygen add mucinex #Acute Pain Syndrome stable #IDDM add SSI diabetic diet, refused BG elevated in setting of steroids and acute illness #HTN stable #GERD home meds # morbid obesity Stable #Staph blood cx started on vanco contaminate DC vanco #Dispo requires further care in hospital Subjective: Still feeling ill. SOB and cough. Not feeling better. Objective: Vital Signs Temp Pulse Resp BP Pulse Ox 36.6 C 81 16 124/69 H 97 01/28/18 07:16 01/28/18 08:54 01/28/18 07:16 01/28/18 08:54 01/28/18 07:16 Laboratory Results 01/27/18 04:51 01/27/18 04:51 01/27/18 01/28/18 01/29/18 05:59 05:59 05:59 Intake Total 800 250 Balance 800 250 PT 13.1 SEC (12.0-15.0) 01/26/18 13:29 INR 0.97 (0.83-1.16) 01/26/18 13:29 - Physical Exam Constitutional: appears nourished, chronically ill appearing, obese Eyes: PERRL, anicteric sclera, EOMI Ears, Nose, Mouth, Throat: moist mucous membranes, hearing normal, ears appear normal Cardiovascular: regular rate and rhythym, edema, No JVD Respiratory: no respiratory distress, expiratory wheeze, rhonchi Gastrointestinal: No tenderness, No ascites, No guarding Skin: warm, normal color, No mottled Musculoskeletal: normal joint ROM, no joint effusions, generalized weakness Neurologic: AAOx3 Psychiatric: not anxious, not encephalopathic, thought process linear, poor insight ICD10 Worksheet Patient Problems: Problems Problem Status Onset Multiple contusions Acute Ankle sprain Acute Fracture of left distal radius Acute Head injury Acute Periorbital hematoma of right eye Acute Acute bronchitis Acute Exacerbation of asthma Acute
[2018-01-28] MEDS: LIDOCAINE RC SCH ×2 (13:28→17:13)
[2018-01-28] MEDS: HYDROCORTISONE RC SCH ×2 (13:28→17:13)
[2018-01-28] MEDS: MILNACIPRAN HCL PO SCH ×2 (13:28→17:12)
--- NOTE | 2018-01-28 17:06 | ASMTCMCOM ---
CM Note CM Note Notes: CM received a call from Sera ([phone]) EDGAR at [facility]. Sera states that pt has been has been refusing to get out of bed for 3 weeks, she thinks pt needs a "higher level of care" and will need to asses pt prior to her returning. Per PT/OT they state pt is at baseline and can return to [place]. CM spoke w/pt regarding poc. Pt is not interested in SNF, she wishes to return to [place]. Pt upset when speaking about [place], she states that she was very sick and the nursing staff would not come and check on her, only staff that gives medication. Pt states that it wasn't until [facility] came to check her that she got medical care. Pt feels that she is treated differently because she is on Medicaid. TERENCE received fax from Kathi Portillo NP who assessed her and had her transferred to hospital. TERENCE put [facility] "Failure to Thrive" assesment in chart. Sera states pt sees a psychologist as well, Josephine Velazquez: [phone]/ [phone] (cell) / [phone](fax) Friend: DEREK Sandoval [phone], TERENCE did not contact friend. DC Plan: TBD Date Signed: 01/28/2018 05:06 PM Electronically Signed By:Umm Deal RN
[2018-01-28] MEDS: CAPSAICIN 0.025% CREAM TP PRN (17:11)
[2018-01-28] MEDS: OXYBUTYNIN 5 MG EXT REL TAB PO SCH (19:32)
[2018-01-28] MEDS: ATORVASTATIN CALCIUM 40 MG TAB PO SCH (19:36)
[2018-01-28] MEDS: FLUTICASONE NASAL 120 SPRAYS/16 GM MDI EACHNARE SCH (20:28)
[2018-01-28] MEDS: HYDROmorphONE/DILAUDID 2 MG TAB PO SCH (20:28)
[2018-01-28] MEDS: ZOLPIDEM TARTRATE 5 MG TAB PO SCH (20:29)
[2018-01-29] MEDS: ALBUTEROL 3 ML DEYVIAL IH SCH ×6 (01:52→21:24)
--- NOTE | 2018-01-29 08:25 | HOSPPROG ---
Hospitalist Progress Note Assessment/Plan: 62-year-old female presents emergency room complaints of shortness of breath and cough. Today is my 1st encounter with the patient. Chart reviewed. #Asthma with exacerbation On prednisone + azithro still significant wheezing Scheduled and PRN nebs resp panel shows human metapneumovirus added acapella valve #Upper respiratory viral illness complicating the above explained to the patient it will take time to get over this # positive blood culture, contaminant # episode of chest pain yesterday Patient declined any further workup at that time when I met with her, she said she has no chest pain # acute hypoxemic respiratory failure Continue supportive oxygen add mucinex #Acute Pain Syndrome stable #IDDM add SSI diabetic diet, refused #HTN stable #GERD home meds #Underlying Parkinson home meds resumed # morbid obesity. BMI is 47 #Plan: RT involved with helping the patient. Hopefully can dc home soon. Will review her Code status with her tomorrow. Subjective: Nell continues to feel poorly. Objective: Vital Signs Temp Pulse Resp BP Pulse Ox 36.8 C 81 20 125/57 H 98 01/29/18 08:00 01/29/18 08:00 01/29/18 08:00 01/29/18 08:00 01/29/18 08:00 Laboratory Results 01/27/18 04:51 01/27/18 04:51 01/28/18 01/29/18 01/30/18 05:59 05:59 05:59 Intake Total 800 400 Balance 800 400 PT 13.1 SEC (12.0-15.0) 01/26/18 13:29 INR 0.97 (0.83-1.16) 01/26/18 13:29 - Physical Exam Constitutional: chronically ill appearing, obese, uncomfortable Eyes: PERRL Ears, Nose, Mouth, Throat: hearing normal Cardiovascular: regular rate and rhythym Respiratory: no respiratory distress, reduced air movement, expiratory wheeze, rhonchi Skin: warm Musculoskeletal: full muscle strength Neurologic: AAOx3 Psychiatric: interacting appropriately ICD10 Worksheet Patient Problems: Problems Problem Status Onset Acute bronchitis Acute Exacerbation of asthma Acute Ankle sprain Acute Fracture of left distal radius Acute Head injury Acute Multiple contusions Acute Periorbital hematoma of right eye Acute
[2018-01-29] MEDS: INSULIN NPH HUMAN 100 UNITS/ML SYR SC SCH ×2 (09:25→15:02)
[2018-01-29] MEDS: ENOXAPARIN 40 MG/0.4 ML SYR SC SCH ×2 (09:25→20:23)
[2018-01-29] MEDS: INSULIN GLARGINE 100 UNITS/ML UNIT SC SCH ×2 (09:25→15:02)
[2018-01-29] MEDS: GABAPENTIN 400 MG CAP PO SCH ×2 (09:26→18:28)
[2018-01-29] MEDS: METOPROLOL TARTRATE 25 MG TAB PO SCH ×2 (09:26→18:27)
[2018-01-29] MEDS: ASPIRIN 81 MG CHEWABLE TAB PO SCH (09:26)
[2018-01-29] MEDS: PANTOPRAZOLE SODIUM 40 MG TAB PO SCH ×2 (09:26→15:03)
[2018-01-29] MEDS: FENOFIBRATE 48 MG TAB PO SCH (09:28)
[2018-01-29] MEDS: DULoxetine 60 MG CAP PO SCH (09:28)
[2018-01-29] MEDS: AZITHROMYCIN 250 MG TAB PO SCH (09:29)
[2018-01-29] MEDS: CARBIDOPA/LEVODOPA 25 MG/100 MG TAB PO SCH ×3 (09:29→18:28)
[2018-01-29] MEDS: AQUAPHOR OINTMENT 3.5 OZ JAR TP SCH ×2 (09:29→18:29)
[2018-01-29] MEDS: guaiFENesin 600 MG TAB.ER PO SCH ×2 (09:29→20:24)
[2018-01-29] MEDS: predniSONE 20 MG TAB PO SCH (09:29)
[2018-01-29] MEDS: MULTIVITAMINS 1 EACH TAB PO SCH (09:29)
[2018-01-29] MEDS: DICLOFENAC SODIUM 1% 100 GM GEL TP SCH ×4 (09:29→20:25)
[2018-01-29] MEDS: LIDOCAINE RC SCH ×2 (09:30→15:04)
[2018-01-29] MEDS: INSULIN LISPRO 100 UNIT/ML SC SCH ×3 (09:30→19:19)
[2018-01-29] MEDS: MILNACIPRAN HCL PO SCH ×2 (09:30→15:04)
[2018-01-29] MEDS: HYDROCORTISONE RC SCH ×2 (09:30→15:04)
[2018-01-29] MEDS: CAPSAICIN 0.025% CREAM TP PRN ×2 (09:35→18:30)
[2018-01-29] MEDS: CETIRIZINE 10 MG TAB PO SCH (11:59)
[2018-01-29] MEDS ORDERED: BENZONATATE 100 MG CAP PO PRN (15:23)
[2018-01-29] MEDS: ATORVASTATIN CALCIUM 40 MG TAB PO SCH (18:28)
[2018-01-29] MEDS: OXYBUTYNIN 5 MG EXT REL TAB PO SCH (20:23)
[2018-01-29] MEDS: HYDROmorphONE/DILAUDID 2 MG TAB PO SCH (20:23)
[2018-01-29] MEDS: ZOLPIDEM TARTRATE 5 MG TAB PO SCH (20:24)
[2018-01-29] MEDS: FLUTICASONE NASAL 120 SPRAYS/16 GM MDI EACHNARE SCH (20:25)
[2018-01-30] MEDS: ALBUTEROL 3 ML DEYVIAL IH SCH ×4 (06:12→22:55)
[2018-01-30] MEDS: INSULIN NPH HUMAN 100 UNITS/ML SYR SC SCH ×2 (09:28→16:13)
[2018-01-30] MEDS: INSULIN GLARGINE 100 UNITS/ML UNIT SC SCH ×2 (09:29→16:13)
[2018-01-30] MEDS: INSULIN LISPRO 100 UNIT/ML SC SCH ×4 (09:29→21:31)
[2018-01-30] MEDS: DULoxetine 60 MG CAP PO SCH (09:30)
[2018-01-30] MEDS: ASPIRIN 81 MG CHEWABLE TAB PO SCH (09:30)
[2018-01-30] MEDS: PANTOPRAZOLE SODIUM 40 MG TAB PO SCH ×2 (09:30→16:13)
[2018-01-30] MEDS: ENOXAPARIN 40 MG/0.4 ML SYR SC SCH ×2 (09:30→20:25)
[2018-01-30] MEDS: CARBIDOPA/LEVODOPA 25 MG/100 MG TAB PO SCH ×3 (09:30→18:18)
[2018-01-30] MEDS: predniSONE 20 MG TAB PO SCH (09:30)
[2018-01-30] MEDS: METOPROLOL TARTRATE 25 MG TAB PO SCH ×2 (09:30→18:19)
[2018-01-30] MEDS: AZITHROMYCIN 250 MG TAB PO SCH (09:30)
[2018-01-30] MEDS: CETIRIZINE 10 MG TAB PO SCH (09:30)
[2018-01-30] MEDS: MILNACIPRAN HCL PO SCH ×2 (09:31→16:15)
[2018-01-30] MEDS: AQUAPHOR OINTMENT 3.5 OZ JAR TP SCH ×2 (09:32→18:20)
[2018-01-30] MEDS: DICLOFENAC SODIUM 1% 100 GM GEL TP SCH ×4 (09:32→20:28)
[2018-01-30] MEDS: CAPSAICIN 0.025% CREAM TP PRN ×2 (09:32→20:28)
[2018-01-30] MEDS: HYDROCORTISONE RC SCH ×2 (09:34→16:14)
[2018-01-30] MEDS: LIDOCAINE RC SCH ×2 (09:34→16:14)
[2018-01-30] MEDS: GABAPENTIN 400 MG CAP PO SCH ×2 (09:35→18:18)
[2018-01-30] MEDS: FENOFIBRATE 48 MG TAB PO SCH (10:02)
[2018-01-30] MEDS: guaiFENesin 600 MG TAB.ER PO SCH ×2 (10:02→20:25)
[2018-01-30] MEDS: MULTIVITAMINS 1 EACH TAB PO SCH (10:29)
--- NOTE | 2018-01-30 13:52 | HOSPPROG ---
Hospitalist Progress Note Assessment/Plan: 62-year-old female presents emergency room complaints of shortness of breath and cough. #Asthma with exacerbation On prednisone + azithro still significant wheezing Scheduled and PRN nebs resp panel shows human metapneumovirus acapella valve #Upper respiratory viral illness complicating the above explained to the patient it will take time to get over this # positive blood culture, contaminant # episode of chest pain none further # acute hypoxemic respiratory failure Continue supportive oxygen #chronic Pain Syndrome home meds resumed #IDDM add SSI diabetic diet, refused #HTN stable #GERD home meds #Underlying Parkinson home meds resumed # morbid obesity. BMI is 47 #Plan: Patient still has significant wheezing, usually only O2 at night, will get a chest xray for further evaluation. Subjective: Nell said she is exhausted, didn't sleep well and continues to feel poorly. Objective: Vital Signs Temp Pulse Resp BP Pulse Ox 36.8 C 78 16 155/67 H 100 01/30/18 07:41 01/30/18 10:54 01/30/18 10:54 01/30/18 07:41 01/30/18 11:12 Laboratory Results 01/27/18 04:51 01/27/18 04:51 01/29/18 01/30/18 01/31/18 05:59 05:59 05:59 Intake Total 400 240 350 Balance 400 240 350 PT 13.1 SEC (12.0-15.0) 01/26/18 13:29 INR 0.97 (0.83-1.16) 01/26/18 13:29 - Physical Exam Constitutional: chronically ill appearing, obese Eyes: PERRL Ears, Nose, Mouth, Throat: hearing normal Cardiovascular: regular rate and rhythym Respiratory: no respiratory distress, reduced air movement (bases), expiratory wheeze (scattered on anterior and posterior ) Gastrointestinal: normoactive bowel sounds Skin: warm Musculoskeletal: full muscle strength Neurologic: AAOx3 Psychiatric: interacting appropriately ICD10 Worksheet Patient Problems: Problems Problem Status Onset Acute bronchitis Acute Exacerbation of asthma Acute Ankle sprain Acute Fracture of left distal radius Acute Head injury Acute Multiple contusions Acute Periorbital hematoma of right eye Acute
--- NOTE | 2018-01-30 16:10 | ASMTCMCOM ---
CM Note CM Note Notes: Patient refused therapies today-not feeling well. PT/OT earlier notes report that patient back to her baseline and could return to [facility] at [place] [facility] noted that patient had been in bed for 3 wks and felt she needed a higher level of care. Patient feels that [place] doesn't assist her because of her Medicaid ins. [facility] [place] [facility] to find out what's up? Patient prefers to return to [place]. No family, Hx depression. Date Signed: 01/30/2018 04:10 PM Electronically Signed By:Zena Mendoza LCSW
[2018-01-30] MEDS: ATORVASTATIN CALCIUM 40 MG TAB PO SCH (18:19)
[2018-01-30] MEDS: ZOLPIDEM TARTRATE 5 MG TAB PO SCH (20:26)
[2018-01-30] MEDS: OXYBUTYNIN 5 MG EXT REL TAB PO SCH (20:26)
[2018-01-30] MEDS: HYDROmorphONE/DILAUDID 2 MG TAB PO SCH (20:26)
[2018-01-30] MEDS: FLUTICASONE NASAL 120 SPRAYS/16 GM MDI EACHNARE SCH (20:29)
[2018-01-31] MEDS: HYDROmorphONE/DILAUDID 2 MG TAB PO PRN (03:19)
[2018-01-31] MEDS: ALBUTEROL 3 ML DEYVIAL IH SCH ×4 (06:05→20:51)
[2018-01-31] MEDS: GABAPENTIN 400 MG CAP PO SCH ×2 (08:31→17:53)
[2018-01-31] MEDS: METOPROLOL TARTRATE 25 MG TAB PO SCH ×2 (08:31→17:53)
[2018-01-31] MEDS: AZITHROMYCIN 250 MG TAB PO SCH (08:31)
[2018-01-31] MEDS: DULoxetine 60 MG CAP PO SCH (08:31)
[2018-01-31] MEDS: ASPIRIN 81 MG CHEWABLE TAB PO SCH (08:31)
[2018-01-31] MEDS: PANTOPRAZOLE SODIUM 40 MG TAB PO SCH ×2 (08:32→16:10)
[2018-01-31] MEDS: CARBIDOPA/LEVODOPA 25 MG/100 MG TAB PO SCH ×3 (08:32→17:52)
[2018-01-31] MEDS: predniSONE 20 MG TAB PO SCH (08:33)
[2018-01-31] MEDS: MULTIVITAMINS 1 EACH TAB PO SCH (08:33)
[2018-01-31] MEDS: guaiFENesin 600 MG TAB.ER PO SCH ×2 (08:33→20:58)
[2018-01-31] MEDS: FENOFIBRATE 48 MG TAB PO SCH (08:33)
[2018-01-31] MEDS: fentaNYL 50 MCG PATCH TD SCH (08:33)
[2018-01-31] MEDS: CETIRIZINE 10 MG TAB PO SCH (08:33)
[2018-01-31] MEDS: INSULIN GLARGINE 100 UNITS/ML UNIT SC SCH ×2 (08:39→16:00)
[2018-01-31] MEDS: INSULIN LISPRO 100 UNIT/ML SC SCH ×4 (08:40→20:57)
[2018-01-31] MEDS: LIDOCAINE RC SCH ×2 (08:43→15:45)
[2018-01-31] MEDS: HYDROCORTISONE RC SCH ×2 (08:43→15:45)
[2018-01-31] MEDS: MILNACIPRAN HCL PO SCH ×2 (08:43→16:01)
[2018-01-31] MEDS: AQUAPHOR OINTMENT 3.5 OZ JAR TP SCH ×2 (08:44→19:37)
[2018-01-31] MEDS: ENOXAPARIN 40 MG/0.4 ML SYR SC SCH ×2 (08:44→20:58)
[2018-01-31] MEDS: DICLOFENAC SODIUM 1% 100 GM GEL TP SCH ×4 (08:44→19:38)
[2018-01-31] MEDS: INSULIN NPH HUMAN 100 UNITS/ML SYR SC SCH ×2 (09:13→16:00)
--- NOTE | 2018-01-31 11:23 | HOSPPROG ---
Hospitalist Progress Note Assessment/Plan: 62-year-old female presents emergency room complaints of shortness of breath and cough. #Asthma with exacerbation On prednisone + azithro still significant wheezing Scheduled and PRN nebs resp panel shows human metapneumovirus acapella valve #Upper respiratory viral illness complicating the above explained to the patient it will take time to get over this # positive blood culture, contaminant # episode of chest pain none further # acute hypoxemic respiratory failure Continue supportive oxygen #chronic Pain Syndrome home meds resumed #IDDM add SSI diabetic diet, refused #HTN stable #GERD home meds #Underlying Parkinson home meds resumed # morbid obesity. BMI is 47 #Plan: Patient still has significant wheezing, usually only O2 at night, will get a chest xray for further evaluation. Objective: Vital Signs Temp Pulse Resp BP Pulse Ox 36.8 C 75 16 148/80 H 93 01/31/18 08:00 01/31/18 08:31 01/31/18 08:00 01/31/18 08:31 01/31/18 08:00 Laboratory Results 01/27/18 04:51 01/27/18 04:51 01/30/18 01/31/18 02/01/18 05:59 05:59 05:59 Intake Total 240 700 Balance 240 700 PT 13.1 SEC (12.0-15.0) 01/26/18 13:29 INR 0.97 (0.83-1.16) 01/26/18 13:29 - Physical Exam Constitutional: no apparent distress, obese Eyes: PERRL Ears, Nose, Mouth, Throat: hearing normal Cardiovascular: regular rate and rhythym Respiratory: other (inspiratory wheezes in RLL and LLL) Gastrointestinal: normoactive bowel sounds Skin: warm Musculoskeletal: generalized weakness Neurologic: AAOx3 Psychiatric: interacting appropriately ICD10 Worksheet Patient Problems: Problems Problem Status Onset Acute bronchitis Acute Exacerbation of asthma Acute Ankle sprain Acute Fracture of left distal radius Acute Head injury Acute Multiple contusions Acute Periorbital hematoma of right eye Acute
--- NOTE | 2018-01-31 11:33 | HOSPPROG ---
Hospitalist Progress Note Assessment/Plan: 62-year-old female presents emergency room complaints of shortness of breath and cough. #Asthma with exacerbation On prednisone + azithro few inspiratory wheezes in RLL and LLL, otherwise LCTA Scheduled and PRN nebs resp panel shows human metapneumovirus continue acapella valve PRN antitussives #Upper respiratory viral illness complicating the above explained to the patient it will take time to get over this # positive blood culture, contaminant # episode of chest pain none further RRR # acute hypoxemic respiratory failure resolved pt on RA this morning #chronic Pain Syndrome home meds resumed #IDDM add SSI diabetic diet, refused hypoglycemia this am, will reduce Lantus and NPH dosages back to pt's home regimen #HTN stable #GERD home meds #Underlying Parkinson home meds resumed # morbid obesity. BMI is 47 #generalized weakness improved PT/OT #Plan: D/c to [facility] today, will discuss with Subjective: Pt feels tired because she got up at 4am and could not get back to sleep, otherwise has no other complaints. Objective: Vital Signs Temp Pulse Resp BP Pulse Ox 36.8 C 75 16 148/80 H 93 01/31/18 08:00 01/31/18 08:31 01/31/18 08:00 01/31/18 08:31 01/31/18 08:00 Laboratory Results 01/27/18 04:51 01/27/18 04:51 01/30/18 01/31/18 02/01/18 05:59 05:59 05:59 Intake Total 240 700 Balance 240 700 PT 13.1 SEC (12.0-15.0) 01/26/18 13:29 INR 0.97 (0.83-1.16) 01/26/18 13:29 - Physical Exam Constitutional: no apparent distress, obese Eyes: PERRL Ears, Nose, Mouth, Throat: hearing normal Cardiovascular: regular rate and rhythym Respiratory: clear to auscultation, other (few inspiratory wheezes in RLL and LLL) Gastrointestinal: normoactive bowel sounds Skin: warm Musculoskeletal: full muscle strength Neurologic: AAOx3 Psychiatric: interacting appropriately ICD10 Worksheet Patient Problems: Problems Problem Status Onset Acute bronchitis Acute Exacerbation of asthma Acute Ankle sprain Acute Fracture of left distal radius Acute Head injury Acute Multiple contusions Acute Periorbital hematoma of right eye Acute
--- NOTE | 2018-01-31 12:14 | GDS ---
[f rep st] DISCHARGE SUMMARY DISCHARGE DIAGNOSES: 1. Asthma with exacerbation. 2. Upper respiratory viral illness secondary to human metapneumovirus. 3. Positive blood culture that was a contaminant. 4. An episode of chest pain. 5. Acute hypoxemic respiratory failure. 6. Chronic pain syndrome. 7. Insulin-dependent diabetic. 8. Hypertension. 9. Gastroesophageal reflux disease. 10. Underlying Parkinson's. 11. Morbid obesity with a body mass index of 47. 12. General weakness, much improved. BRIEF HISTORY: The patient is a 62-year-old female who has insulin-dependent diabetes, underlying Parkinson's, who presented to the emergency room for feeling poorly for a week. Her wheezing had started to get worse and was worse with any exertion. She had a chest x-ray performed on admission that showed a probable right basilar atelectasis. Subsequently, a repeat chest x-ray was performed on January 30. This noted no pneumonia or atelectasis or any type of heart failure. She is much improved and back on room air today. She will be discharged to her assisted living. HOSPITAL COURSE: 1. Acute asthma exacerbation, treated with steroids as well as azithromycin. She is much better. I think what improved her overall was using the Acapella valve and she is to continue this in the outpatient setting. 2. Upper respiratory viral illness. This is secondary to the human metapneumovirus. 3. Positive blood culture. This is a contaminant. 4. An episode of chest pain. She has none further. 5. Acute hypoxemic respiratory failure, resolved. 6. Chronic pain syndrome. No complaints. Home medications have been resumed. 7. Insulin-dependent diabetic. She was hypoglycemic this morning. Her Lantus and NPH dosages are back to her prior home regimen. 8. Hypertension, slightly elevated but overall stable. 9. GERD. Continue PPI. 10. Underlying Parkinson's. Continue her Sinemet. 11. Morbid obesity. Her BMI is 47. 12. Generalized weakness. She is ambulating well in the room. DISCHARGE CONDITION: Stable. Blood pressure is 148/80, O2 sats on room air 91% , respiratory rate is 16, heart rate is 75, temperature is 36.8 Celsius. MEDICATIONS AT DISCHARGE: Please see the EMR. DISCHARGE INSTRUCTIONS: 1. Take prednisone as instructed. 2. To continue monitoring her glucoses and follow up with her primary care provider. 3. If she develops fever, chills, chest pain, or shortness of breath, return to the ER. ADDENDUM: Patient was discharged on 02/01/2018 in stable condition. /[id number]/MODL MTDD
[2018-01-31] MEDS ORDERED: predniSONE 20 MG TAB PO SCH (16:31)
[2018-01-31] MEDS: ATORVASTATIN CALCIUM 40 MG TAB PO SCH (17:52)
[2018-01-31] MEDS: OXYBUTYNIN 5 MG EXT REL TAB PO SCH (19:38)
[2018-01-31] MEDS: CAPSAICIN 0.025% CREAM TP PRN (19:40)
[2018-01-31] MEDS: ZOLPIDEM TARTRATE 5 MG TAB PO SCH (20:58)
[2018-01-31] MEDS: HYDROmorphONE/DILAUDID 2 MG TAB PO SCH (20:58)
[2018-01-31] MEDS ORDERED: INSULIN GLARGINE 100 UNITS/ML SYRINGE SC ONE (21:00)
[2018-01-31] MEDS: FLUTICASONE NASAL 120 SPRAYS/16 GM MDI EACHNARE SCH (21:02)
[2018-02-01] MEDS: ALBUTEROL 3 ML DEYVIAL IH SCH ×2 (04:46→11:07)
[2018-02-01] MEDS: HYDROmorphONE/DILAUDID 2 MG TAB PO PRN (05:12)
--- NOTE | 2018-02-01 09:24 | HOSPPROG ---
Hospitalist Progress Note Assessment/Plan: 62-year-old female presents emergency room complaints of shortness of breath and cough. #Asthma with exacerbation On prednisone + azithro few inspiratory wheezes in RLL and LLL, otherwise LCTA Scheduled and PRN nebs resp panel shows human metapneumovirus continue acapella valve PRN antitussives #Upper respiratory viral illness complicating the above explained to the patient it will take time to get over this # positive blood culture, contaminant # episode of chest pain none further RRR # acute hypoxemic respiratory failure resolved pt on 2L of O2 via NC while sleeping, this is her baseline, per patient unable to tolerate CPAP for DIONISIO #chronic Pain Syndrome home meds resumed #IDDM add SSI changed diet to ADA diet from regular after hyperglycemia yesterday BG stable this am #HTN stable #GERD home meds #Underlying Parkinson home meds resumed # morbid obesity. BMI is 47 #generalized weakness improved PT/OT #Plan: Discussed adhering to ADA diet, continuing to monitor BGs, and discussing IDDM management with providers at [place]. D/c to [facility] today, will discuss with CM. Subjective: Pt is concerned about her blood sugar being high yesterday, but has no other complaints or questions. Objective: Vital Signs Temp Pulse Resp BP Pulse Ox 37.1 C 87 18 165/83 H 93 01/31/18 22:04 01/31/18 22:04 01/31/18 22:04 01/31/18 22:04 01/31/18 22:04 Laboratory Results 01/27/18 04:51 01/27/18 04:51 01/31/18 02/01/18 02/02/18 05:59 05:59 05:59 Intake Total 700 550 Balance 700 550 PT 13.1 SEC (12.0-15.0) 01/26/18 13:29 INR 0.97 (0.83-1.16) 01/26/18 13:29 - Physical Exam Constitutional: no apparent distress, obese Ears, Nose, Mouth, Throat: hearing normal Cardiovascular: regular rate and rhythym Respiratory: clear to auscultation Gastrointestinal: normoactive bowel sounds Skin: warm Neurologic: AAOx3 Psychiatric: interacting appropriately ICD10 Worksheet Patient Problems: Problems Problem Status Onset Acute bronchitis Acute Exacerbation of asthma Acute Ankle sprain Acute Fracture of left distal radius Acute Head injury Acute Multiple contusions Acute Periorbital hematoma of right eye Acute
[2018-02-01] MEDS: guaiFENesin 600 MG TAB.ER PO SCH (09:59)
[2018-02-01] MEDS: METOPROLOL TARTRATE 25 MG TAB PO SCH (09:59)
[2018-02-01] MEDS: GABAPENTIN 400 MG CAP PO SCH (10:01)
[2018-02-01] MEDS: AZITHROMYCIN 250 MG TAB PO SCH (10:02)
[2018-02-01] MEDS: ASPIRIN 81 MG CHEWABLE TAB PO SCH (10:03)
[2018-02-01] MEDS: CETIRIZINE 10 MG TAB PO SCH (10:03)
[2018-02-01] MEDS: CARBIDOPA/LEVODOPA 25 MG/100 MG TAB PO SCH (10:03)
[2018-02-01] MEDS: DULoxetine 60 MG CAP PO SCH (10:05)
[2018-02-01] MEDS: MULTIVITAMINS 1 EACH TAB PO SCH (10:05)
[2018-02-01] MEDS: PANTOPRAZOLE SODIUM 40 MG TAB PO SCH (10:06)
[2018-02-01] MEDS: FENOFIBRATE 48 MG TAB PO SCH (10:06)
[2018-02-01 10:07] VITALS: BP 123/72
[2018-02-01] MEDS: MILNACIPRAN HCL PO SCH (10:08)
[2018-02-01] MEDS: HYDROCORTISONE RC SCH (10:11)
[2018-02-01] MEDS: INSULIN NPH HUMAN 100 UNITS/ML SYR SC SCH ×2 (10:11→12:13)
[2018-02-01] MEDS: LIDOCAINE RC SCH (10:11)
[2018-02-01] MEDS: INSULIN GLARGINE 100 UNITS/ML UNIT SC SCH (10:12)
[2018-02-01] MEDS: INSULIN LISPRO 100 UNIT/ML SC SCH (10:12)
[2018-02-01] MEDS: ENOXAPARIN 40 MG/0.4 ML SYR SC SCH (10:13)
[2018-02-01] MEDS: DICLOFENAC SODIUM 1% 100 GM GEL TP SCH (10:16)
[2018-02-01] MEDS: SUMAtriptan 50 MG TAB PO PRN (12:11)
--- NOTE | 2018-02-01 12:14 | ASMTCMCOM ---
CM Note CM Note Notes: Discharge had to be cancelled yesterday due to patient's blood sugar being too high in the afternoon. Patient is scheduled to d/c today to her home at [place]. [facility] will do bariatric wheelchair transport today 02-01-18 to [place] at 1:30 PM. Copy of PCS in chart. No further needs. CM available if their are changes in d/c needs. Date Signed: 02/01/2018 12:13 PM Electronically Signed By:Suly Boo LCSW
[2018-02-06] MEDS ORDERED: CHOLECALCIFEROL VIT D3 50,000 UNIT CAP PO SCH (09:00)
== END 2018-02-01 13:45 | disposition home or self-care (01) | DRG 202 ==
LOC: EDUNIT# → INTOOBSV 14:43 → OBSVTOIN 15:01 → F3E 16:01
PROVIDERS: ADMIT Family Medicine; ATTEND Family Medicine
DX: J45.901 Unspecified asthma with (acute) exacerbation (principal); J96.01 Acute respiratory failure with hypoxia; J06.9 Acute upper respiratory infection, unspecified; B97.81 Human metapneumovirus as the cause of diseases classified elsewhere; E11.65 Type 2 diabetes mellitus with hyperglycemia; T38.7X5A Adverse effect of androgens and anabolic congeners, initial encounter; I10 Essential (primary) hypertension; G89.4 Chronic pain syndrome; K21.9 Gastro-esophageal reflux disease without esophagitis; E66.01 Morbid (severe) obesity due to excess calories; Z68.42 Body mass index [BMI] 45.0-49.9, adult; G20 Parkinson's disease
CPT/HCPCS: 96374; 97116-GP; 97162-GP; 97165-GO; 97530-GO; 97530-GP; 97535-GO; G0378; G8978-GP-CJ; G8979-GP-CI; G8987-GO-CJ; G8988-GO-CI; J0456; J1650; J1815; J2930; J3370; J7512; J7613

== ENCOUNTER 2018-02-08 11:57 | Emergency (ER) | payer OTHER, MEDICAID ==
[2018-02-08] MEDS ORDERED: ACETAMINOPHEN 325 MG TAB ONE (12:28)
[2018-02-08] MEDS ORDERED: ACETAMINOPHEN 325 MG TAB PO ONE (12:32)
--- NOTE | 2018-02-08 13:54 | EDPHY ---
H & P Stated Complaint: wheelchair v table. Pt c/o bilat knee pain, and lt ankle pain Time Seen by Provider: 02/08/18 13:00 HPI/ROS: CHIEF COMPLAINT: Bilateral knee and ankle pain. HISTORY OF PRESENT ILLNESS: 62-year-old female with Parkinson's disease presents with bilateral knee and ankle pain. She was in her wheelchair and trying to the get seated next to the table, when the wheelchair got out of control and the wheelchair struck the wall. Immediate onset of moderate knee pain bilaterally. She also has left foot pain. No other injuries. She did not fall out of the wheelchair. REVIEW OF SYSTEMS: complete 10 point ROS negative except as noted in the HPI - Personal History Current Tetanus/Diphtheria Vaccine: Yes Current Tetanus Diphtheria and Acellular Pertussis (TDAP): Yes - Medical/Surgical History Hx Asthma: Yes Hx Chronic Respiratory Disease: Yes Hx Diabetes: Yes Hx Cardiac Disease: Yes Hx Renal Disease: No Hx Cirrhosis: No Hx Alcoholism: No Hx HIV/AIDS: No Hx Splenectomy or Spleen Trauma: No Other PMH: hyperlipidemia, IDDM, cellulitis, chronic ischemic heart disease, chronic pain, depression, Parkinsons, mood disorder - Social History Smoking Status: Never smoked - Physical Exam Exam: General Appearance: Alert, tearful Head: Atraumatic Eyes: No conjunctival erythema, PERRLA, EOMI ENT, Mouth: no oral trauma, no bony tenderness Neck: Nontender, full range of motion without pain Respiratory: No chest wall tenderness, lungs clear bilaterally Cardiovascular: Regular rate and rhythm Abdomen: Abdomen is soft and nontender Skin: No lacerations, no abrasions Back: No midline T/L/S tenderness Extremities: Left knee-diffuse tenderness, no abrasion or swelling were the, range of motion with mild pain; right knee-linear abrasion over the inferior aspect of the knee, no swelling, range of motion with mild pain; left ankle- ecchymosis over the medial aspect of the ankle, no swelling Neurological: A&Ox3, nonfocal exam Psychiatric: Mood and affect normal Constitutional: Initial Vital Signs Temperature (C) 36.7 C 02/08/18 11:57 Heart Rate 72 02/08/18 11:57 Respiratory Rate 16 02/08/18 11:57 Blood Pressure 123/60 H 02/08/18 11:57 O2 Sat (%) 95 02/08/18 11:57 O2 Delivery Mode Room Air Allergies/Adverse Reactions: latex Allergy (Verified 01/20/18 13:45) Home Medications: Medication Instructions Recorded Aspirin [Aspirin 81mg (*)] 81 mg PO DAILY 08/07/16 Carbidopa/Levodopa 25/100Mg 2 tab PO TID@09,,08/07/16 [Sinemet 25/100 MG (*)] DULoxetine [Cymbalta 60 MG (*)] 60 mg PO DAILY 08/07/16 Fenofibrate [Tricor] 48 mg PO DAILY 08/07/16 Gabapentin [Neurontin 400 MG (*)] 1,200 mg PO BID@,08/07/16 Insulin Glargine [Lantus 100 36 units SC BID@,08/07/16 UNITS/ML (*)] MILNACIPRAN HCL [Savella 50 mg] 75 mg PO BID@08,16 08/07/16 Metoprolol Tartrate [Lopressor 25 12.5 mg PO BID@,08/07/16 mg (*)] Multivitamins [Multivitamin (*)] 1 each PO DAILY 08/07/16 Omeprazole 20 mg PO BID@,16 08/07/16 fentaNYL [Duragesic 50 MCG Patch 50 mcg TD Q72H 08/07/16 (*)] sitaGLIPtin PHOSPHATE [Januvia 100 100 mg PO DAILY 08/07/16 MG (*)] Acetaminophen [Tylenol 325mg (*)] 650 mg PO Q4 PRN 09/21/17 Atorvastatin Calcium [Lipitor 40 40 mg PO DAILY@19 09/21/17 mg (*)] Cholecalciferol Vit D3 [Vitamin D3 50,000 unit PO Q30D 09/21/17 (*)] Diazepam [Valium 5 MG (*)] 5 mg PO Q6 PRN 09/21/17 Diclofenac Sodium 1% [Voltaren Gel 4 gm TP QID@08,12,16,20 09/21/17 (*)] Fluticasone Nasal [Flonase Nasal 2 sprays NASAL HS 09/21/17 Magnolia] HYDROmorphone HCL [Dilaudid 2 mg 2 mg PO HS 09/21/17 (*)] HYDROmorphone HCL [Dilaudid 2 mg 2 mg PO Q6HRS PRN 09/21/17 (*)] Insulin NPH Human [humULIN N 100 10 units SC BID@08,16 09/21/17 UNITS/ML (*)] Mineral Oil/Pet Hy-Phl [Aquaphor 1 leandra TP BID@,19 09/21/17 Ointment (*)] Nystatin [Mycostatin Cream (RX)] 1 leandra TP DAILY PRN 09/21/17 Oxybutynin Chloride [OXYBUTYNIN 10 mg PO DAILY@20 09/21/17 CHLORIDE ER] SUMAtriptan [Imitrex 50 MG (*)] 50 mg PO Q2H PRN 09/21/17 Zolpidem Tartrate [Ambien 10 mg] 10 mg PO HS 09/21/17 Hydrocodone/APAP 5/325 [[place] 1 tab PO Q6H PRN #10 tab 01/20/18 5/325 (*)] Albuterol [Proventil Inhaler HFA 1 puffs IH Q4H PRN 01/26/18 (*)] Capsaicin [Zostrix] 1 leandra TP Q4HRS PRN 01/26/18 Dimethicone/Zinc Oxide [Halie 1 leandra TP DAILY PRN 01/26/18 Protect Cream] Lidocaine/Hydrocortisone AC 1 leandra RC BID@,01/26/18 [Lidocaine-Hc 3-0.5% Cream] Magnesium Oxide [Magnesium Oxide 400 mg PO DAILY PRN 01/26/18 400 mg (*)] Nystatin Powder [Mycostatin Powder] 1 leandra TP DAILY PRN 01/26/18 Azithromycin [Zithromax] 250 mg PO DAILY #2 tab 01/31/18 Benzonatate [Tessalon Pearles] 100 mg PO TID PRN #30 cap 01/31/18 Cetirizine [ZyrTEC 10 mg (*)] 10 mg PO DAILY tab 01/31/18 guaiFENesin [Mucinex 600 MG (*)] 1,200 mg PO BID tab.er 01/31/18 predniSONE 40 mg PO DAILY #7 tablet 01/31/18 Medical Decision Making - Diagnostics Imaging Results: Imaging Impressions Ankle X-Ray 02/08/18 12:32 Impression: There is no acute osseous abnormality. Right Knee (4 Views, at 12:43 PM): The bones are mildly demineralized. There is some degenerative pinnacling of the tibial spines and small osteophytes are seen along the distal medial femur and the proximal medial tibia. There is no convincing evidence of a joint effusion. There are prominent posterior patellar osteophytes. There is a bone island projected over the distal femur. There is no acute fracture, dislocation, or periostitis. Impression: There is no acute osseous abnormality. Left Ankle (3 Views, at 12:43 PM): Remote exams are not currently available. The patient has had prior remote orthopedic fixation for medial and lateral malleolar fracture sites. The bones are demineralized, and there is no periprosthetic lucency, or acute fracture observed. There is some degenerative change at the level of the ankle at the tibiotalar articulation. There is a fused os trigonum posterior to the talus. There are posterior calcaneal enthesophytes, particularly prominent at the plantar aponeurosis insertion point. The subtalar joint is normal. There is some dorsal midfoot, and medial and lateral hindfoot, soft tissue swelling. The tarsometatarsal alignment is anatomic. Impression: Soft tissue swelling with sequela of prior orthopedic fixation of the medial and the lateral malleoli, with no acute osseous abnormality identified. Knee X-Ray 02/08/18 12:32 Impression: There is no acute osseous abnormality. Right Knee (4 Views, at 12:43 PM): The bones are mildly demineralized. There is some degenerative pinnacling of the tibial spines and small osteophytes are seen along the distal medial femur and the proximal medial tibia. There is no convincing evidence of a joint effusion. There are prominent posterior patellar osteophytes. There is a bone island projected over the distal femur. There is no acute fracture, dislocation, or periostitis. Impression: There is no acute osseous abnormality. Left Ankle (3 Views, at 12:43 PM): Remote exams are not currently available. The patient has had prior remote orthopedic fixation for medial and lateral malleolar fracture sites. The bones are demineralized, and there is no periprosthetic lucency, or acute fracture observed. There is some degenerative change at the level of the ankle at the tibiotalar articulation. There is a fused os trigonum posterior to the talus. There are posterior calcaneal enthesophytes, particularly prominent at the plantar aponeurosis insertion point. The subtalar joint is normal. There is some dorsal midfoot, and medial and lateral hindfoot, soft tissue swelling. The tarsometatarsal alignment is anatomic. Impression: Soft tissue swelling with sequela of prior orthopedic fixation of the medial and the lateral malleoli, with no acute osseous abnormality identified. Knee X-Ray 02/08/18 12:32 Impression: There is no acute osseous abnormality. Right Knee (4 Views, at 12:43 PM): The bones are mildly demineralized. There is some degenerative pinnacling of the tibial spines and small osteophytes are seen along the distal medial femur and the proximal medial tibia. There is no convincing evidence of a joint effusion. There are prominent posterior patellar osteophytes. There is a bone island projected over the distal femur. There is no acute fracture, dislocation, or periostitis. Impression: There is no acute osseous abnormality. Left Ankle (3 Views, at 12:43 PM): Remote exams are not currently available. The patient has had prior remote orthopedic fixation for medial and lateral malleolar fracture sites. The bones are demineralized, and there is no periprosthetic lucency, or acute fracture observed. There is some degenerative change at the level of the ankle at the tibiotalar articulation. There is a fused os trigonum posterior to the talus. There are posterior calcaneal enthesophytes, particularly prominent at the plantar aponeurosis insertion point. The subtalar joint is normal. There is some dorsal midfoot, and medial and lateral hindfoot, soft tissue swelling. The tarsometatarsal alignment is anatomic. Impression: Soft tissue swelling with sequela of prior orthopedic fixation of the medial and the lateral malleoli, with no acute osseous abnormality identified. ED Course/Re-evaluation: This patient presents with multiple contusions after minor trauma. She is requesting narcotics. This request was declined. She was given Tylenol orally. I also placed ice packs and an Fredo wrap on the left ankle. She is in a wheelchair most of the time and will use her wheelchair to get around. - Data Points Medications Given: Discontinued Medications Acetaminophen (Tylenol) 650 mg PO EDNOW ONE Stop: 02/08/18 12:33 Last Admin: 02/08/18 12:34 Dose: 650 mg Departure - Departure Disposition: Home, Routine, Self-Care Clinical Impression: Multiple contusions Condition: Good Instructions: Contusion in Adults (ED) Additional Instructions: Ibuprofen 600 mg 3 times daily while the pain persists. You may also take Tylenol 650 mg every 4 hr as needed for pain. Apply ice for 20 min every 2-3 hours. Referrals: TAMARA BAUER [Other] - As per Instructions
[2018-02-08 14:12] VITALS: BP 142/79
--- NOTE | 2018-02-08 14:37 | ASMTCASEMG ---
Living Arrangements What is your living Answers: Alone arrangement? Who do you live with? Type Of Residence What kind of residence do Answers: Assisted Living you live in? Type of Residence Facility Name Notes: [facility] Case Management Evaluation Functional: ADL / IADL Answers: Chronic Illness Performance Deficits Due to: Disability Mobility Issues Psychosocial Needs: Answers: Behavioral Health Issue Notes: depression Discharge Plan Comments Coordination Status Comments Notes: Patient has a history of non-compliance with diabetes medications. Pt possibly needing higher level of care but when this was discussed during last [facility] admission, pt was not interested in SNF. Date Signed: 02/08/2018 02:37 PM Electronically Signed By:Dawna Mendoza RN
--- NOTE | 2018-02-08 14:58 | ASDISCHSUM ---
Discharge Information Plan Status:Assisted Living Medically Cleared to Leave: Discharge Date: CM D/C Disposition:Assisted Living ADT D/C Disposition:Home, Routine, Self-Care Projected Discharge Date: Transportation at D/C:ALS/BLS Discharge Delay Reason: Follow-Up Date: Discharge Slot: Final Diagnosis: Placement Information Patient Contact Information Contact Name:CAREN Relationship:Other Address: City: [facility] Phone: State/Zip Code: Email: Financial Information Financial Class:Medicare Primary Plan Desc:MEDICARE OUTPATIENT Primary Plan Number:[id number] Secondary Plan Desc:MEDICAID [place] Secondary Plan Number:[id number] Assessment Information [facility] Initial CM Assessment Living Arrangements What is your living Answers: Alone arrangement? Who do you live with? Type Of Residence What kind of residence do Answers: Assisted Living you live in? Type of Residence Facility Name Notes: [facility] Case Management Evaluation Functional: ADL / IADL Answers: Chronic Illness Performance Deficits Due to: Disability Mobility Issues Psychosocial Needs: Answers: Behavioral Health Issue Notes: depression Discharge Plan Comments Coordination Status Comments Notes: Patient has a history of non-compliance with diabetes medications. Pt possibly needing higher level of care but when this was discussed during last [facility] admission, pt was not interested in SNF. Date Signed: 02/08/2018 02:37 PM Electronically Signed By:Dawna Mendoza RN Intervention Information Intervention Type:Transportation Date of Service:02/08/2018 02:56 PM Patient Type:Emergency Room Staff Member:PURNIMA Mendoza [place] Hours:0.25 Discipline:Lunchroom Worker Severity: Comment:[facility] stretcher transport arranged [facility]. PCS completed, copy given to EMS, original to be scanned into chart .
== END 2018-02-08 15:04 | disposition home or self-care (01) ==
LOC: EDBD → EDUNIT#
DX: T14.8XXA Other injury of unspecified body region, initial encounter (principal); E11.9 Type 2 diabetes mellitus without complications; J45.909 Unspecified asthma, uncomplicated; Z79.82 Long term (current) use of aspirin; Z79.4 Long term (current) use of insulin; Z91.040 Latex allergy status; V00.812A Wheelchair (powered) colliding with stationary object, initial encounter

== ENCOUNTER 2018-06-05 15:47 | Emergency (ER) | payer OTHER, MEDICAID ==
--- NOTE | 2018-06-05 16:47 | EDPHY ---
H & P Stated Complaint: chest pain that is now resolved. Time Seen by Provider: 06/05/18 16:12 HPI/ROS: CHIEF COMPLAINT: Chest pain HISTORY OF PRESENT ILLNESS: 62-year-old female with coronary artery disease and Parkinson's disease presents with chest pain. Onset of sharp and stabbing left-sided chest pain this morning. The pain has been intermittent and moderate. The pain lasts a few seconds and then completely resolves. Approximately 10 episodes today. No known previous similar symptoms, though her memory is poor. REVIEW OF SYSTEMS: complete 10 point ROS negative except at noted in the HPI - Personal History Current Tetanus/Diphtheria Vaccine: Unsure Current Tetanus Diphtheria and Acellular Pertussis (TDAP): Unsure - Medical/Surgical History Hx Asthma: Yes Hx Chronic Respiratory Disease: Yes Hx Diabetes: Yes Hx Cardiac Disease: Yes Hx Renal Disease: No Hx Cirrhosis: No Hx Alcoholism: No Hx HIV/AIDS: No Hx Splenectomy or Spleen Trauma: No Other PMH: hyperlipidemia, IDDM, cellulitis, chronic ischemic heart disease, chronic pain, depression, Parkinsons, mood disorder - Social History Smoking Status: Never smoked Alcohol Use: None Drug Use: None - Physical Exam Exam: General Appearance: Alert, pleasant Eyes: Pupils equal and round, no conjunctival pallor ENT, Mouth: Mucous membranes moist Neck: Normal inspection Respiratory: Lungs are clear to auscultation Cardiovascular: Regular rate and rhythm Gastrointestinal: Abdomen is soft and nontender Neurological: A&O, nonfocal exam Skin: Warm and dry, no rash Extremities: Nontender, no pedal edema Psychiatric: Mood and affect normal Constitutional: Initial Vital Signs Temperature (C) 36.8 C 06/05/18 15:47 Heart Rate 82 06/05/18 15:47 Respiratory Rate 15 06/05/18 15:47 Blood Pressure 100/46 L 06/05/18 15:47 O2 Sat (%) 85 L 06/05/18 15:47 O2 Delivery Mode Nasal Cannula O2 (L/minute) 2 Allergies/Adverse Reactions: latex Allergy (Verified 01/20/18 13:45) Home Medications: Medication Instructions Recorded Aspirin [Aspirin 81mg (*)] 81 mg PO DAILY 08/07/16 Carbidopa/Levodopa 25/100Mg 2 tab PO TID@,,19 08/07/16 [Sinemet 25/100 MG (*)] DULoxetine [Cymbalta 60 MG (*)] 60 mg PO DAILY 08/07/16 Fenofibrate [Tricor] 48 mg PO DAILY 08/07/16 Gabapentin [Neurontin 400 MG (*)] 1,200 mg PO BID@,08/07/16 Insulin Glargine [Lantus 100 36 units SC BID@,16 08/07/16 UNITS/ML (*)] MILNACIPRAN HCL [Savella 50 mg] 75 mg PO BID@,16 08/07/16 Metoprolol Tartrate [Lopressor 25 12.5 mg PO BID@,08/07/16 mg (*)] Multivitamins [Multivitamin (*)] 1 each PO DAILY 08/07/16 Omeprazole 20 mg PO BID@,08/07/16 fentaNYL [Duragesic 50 MCG Patch 50 mcg TD Q72H 08/07/16 (*)] sitaGLIPtin PHOSPHATE [Januvia 100 100 mg PO DAILY 08/07/16 MG (*)] Acetaminophen [Tylenol 325mg (*)] 650 mg PO Q4 PRN 09/21/17 Atorvastatin Calcium [Lipitor 40 40 mg PO DAILY@09/21/17 mg (*)] Cholecalciferol Vit D3 [Vitamin D3 50,000 unit PO Q30D 09/21/17 (*)] Diazepam [Valium 5 MG (*)] 5 mg PO Q6 PRN 09/21/17 Diclofenac Sodium 1% [Voltaren Gel 4 gm TP QID@,,16,20 09/21/17 (*)] Fluticasone Nasal [Flonase Nasal 2 sprays NASAL HS 09/21/17 [place]] HYDROmorphone HCL [Dilaudid 2 mg 2 mg PO HS 09/21/17 (*)] HYDROmorphone HCL [Dilaudid 2 mg 2 mg PO Q6HRS PRN 09/21/17 (*)] Insulin NPH Human [humULIN N 100 10 units SC BID@08,16 09/21/17 UNITS/ML (*)] Mineral Oil/Pet Hy-Phl [Aquaphor 1 leandra TP BID@,09/21/17 Ointment (*)] Nystatin [Mycostatin Cream (RX)] 1 leandra TP DAILY PRN 09/21/17 Oxybutynin Chloride [OXYBUTYNIN 10 mg PO DAILY@20 09/21/17 CHLORIDE ER] SUMAtriptan [Imitrex 50 MG (*)] 50 mg PO Q2H PRN 09/21/17 Zolpidem Tartrate [Ambien 10 mg] 10 mg PO HS 09/21/17 Hydrocodone/APAP 5/325 [[place] 1 tab PO Q6H PRN #10 tab 01/20/18 5/325 (*)] Albuterol [Proventil Inhaler HFA 1 puffs IH Q4H PRN 01/26/18 (*)] Capsaicin [Zostrix] 1 leandra TP Q4HRS PRN 01/26/18 Dimethicone/Zinc Oxide [Halie 1 leandra TP DAILY PRN 01/26/18 Protect Cream] Lidocaine/Hydrocortisone AC 1 leandra RC BID@08,16 01/26/18 [Lidocaine-Hc 3-0.5% Cream] Magnesium Oxide [Magnesium Oxide 400 mg PO DAILY PRN 01/26/18 400 mg (*)] Nystatin Powder [Mycostatin Powder] 1 leandra TP DAILY PRN 01/26/18 Azithromycin [Zithromax] 250 mg PO DAILY #2 tab 01/31/18 Benzonatate [Tessalon Pearles] 100 mg PO TID PRN #30 cap 01/31/18 Cetirizine [ZyrTEC 10 mg (*)] 10 mg PO DAILY tab 01/31/18 guaiFENesin [Mucinex 600 MG (*)] 1,200 mg PO BID tab.er 01/31/18 predniSONE 40 mg PO DAILY #7 tablet 01/31/18 Medical Decision Making - Diagnostics EKG Interpretation: EKG interpreted by me reveals normal sinus rhythm, rate 81, low voltage, no ST or T segment changes. Interpretation: Abnormal EKG Imaging Results: CXR: NAD Imaging: I viewed and interpreted images myself ED Course/Re-evaluation: Triage vital signs reviewed. Oxygen saturation is 85% on room air at triage. This patient uses home oxygen at night and is not SOB. Likely her usual O2 sat. This patient presents with pleuritic chest pain of very brief duration, quite atypical for ACS. Stat EKG reveals no evidence of ischemia or dysrhythmia. Chest x-ray is unremarkable. D-dimer is slightly elevated, though within normal limits for age. I do not feel that further evaluation for pulmonary embolism is indicated. Toradol 15 mg IV given. I feel this patient is safe and stable for discharge home. Warning signs discussed. Differential Diagnosis: Differential diagnosis includes though it is not limited to pneumonia, pneumothorax, pulmonary embolism, aortic dissection, pericarditis, acute coronary syndrome. - Data Points Laboratory Results: Laboratory Results 06/05/18 16:01 06/05/18 16:01 Medications Given: Discontinued Medications Ketorolac Tromethamine (Toradol) 15 mg IVP EDNOW ONE Stop: 06/05/18 17:41 Last Admin: 06/05/18 17:57 Dose: 15 mg Point of Care Test Results: Chemistry 06/05/18 17:40 POC Troponin I 0.00 ng/mL ng/mL (0.00-0.08) Departure - Departure Disposition: Home, Routine, Self-Care Clinical Impression: Chest pain Qualifiers: Chest pain type: other chest pain Qualified Code(s): R07.89 - Other chest pain ; R07.8 - Other chest pain Condition: Good Instructions: Chest Pain (ED) Additional Instructions: Ibuprofen 600 mg 3 times daily while the pain persists. Referrals: LAKISHA COWAN [Primary Care Provider] - As per Instructions
[2018-06-05 16:49] LABS: PLATELET COUNT 244 10^3/uL (150-400)
[2018-06-05] MEDS ORDERED: KETOROLAC 15 MG/1 ML SDV IVP ONE (17:40)
--- NOTE | 2018-06-05 18:00 | CPEKG ---
Test Reason : OPEN Blood Pressure : / mmHG Vent. Rate : 081 BPM Atrial Rate : 081 BPM P-R Int : 140 ms QRS Dur : 087 ms QT Int : 378 ms P-R-T Axes : 069 042 052 degrees QTc Int : 439 ms Normal sinus rhythm Low voltage, extremity and precordial leads Confirmed by Jacey Castro ([id number]) on 06/05/2018 6:00:03 PM Referred By: Confirmed By:Jacey Castro
[2018-06-05 20:10] VITALS: BP 114/50
== END 2018-06-05 20:54 | disposition home or self-care (01) ==
LOC: EDUNIT#
DX: R07.89 Other chest pain (principal); I25.10 Atherosclerotic heart disease of native coronary artery without angina pectoris; G20 Parkinson's disease
CPT/HCPCS: 71046; 93005; 96374; 99285; J1885; 84484-PO

== ENCOUNTER → 2018-06-09 | Outpatient (CLI) | payer OTHER, MEDICAID | LOC: FIMAGING 07:04 | PROVIDERS: ATTEND Psychiatry & Neurology Neurology | DX: G20 Parkinson's disease (principal); M54.16 Radiculopathy, lumbar region ==

== ENCOUNTER 2018-12-29 14:19 | Inpatient (IN) | payer OTHER, MEDICAID ==
[2018-12-29] MEDS ORDERED: ASPIRIN 81 MG CHEWABLE TAB PO ONE (14:25)
[2018-12-29] MEDS ORDERED: NITROGLYCERIN 0.4 MG BTL SL PRN (14:25)
[2018-12-29] MEDS ORDERED: NS 500 ML IV ONE (14:25)
--- NOTE | 2018-12-29 14:28 | EDPHY ---
H & P Time Seen by Provider: 12/29/18 14:27 HPI/ROS: HPI CHIEF COMPLAINT: Chest pain. HISTORY OF PRESENT ILLNESS: Patient is a 63-year-old female she resides at [facility] she presents emergency room with chest pain. She states over the past week she has had intermittent chest discomfort. She reports that the pain is located in the center of her chest. Does not radiate. He describes a heavy sensation. Denies any pleuritic pain or significant shortness of breath. She arrived by ambulance to the ER, she has been having chest pain for the past week. Denies any cough or productive sputum. Denies fever. Past Medical History: Significant past medical history of Parkinson's, coronary artery disease, hypertension, diabetes, morbid obesity, remote history of PE Past Surgical History: No recent surgery. Social History: Resides at [facility]. Family History: Noncontributory ROS REVIEW OF SYSTEMS: 10 Systems were reviewed and negative with the exception of the elements mentioned in the history of present illness. Exam Constitutional triage nursing summary reviewed, vital signs reviewed, awake/ alert. Eyes normal conjunctivae and sclera, EOMI, PERRLA. HENT normal inspection, atraumatic, moist mucus membranes, no epistaxis, neck supple/ no meningismus, no raccoon eyes. Respiratory clear to auscultation bilaterally, normal breath sounds, no respiratory distress, no wheezing. Cardiovascular rate normal, regular rhythm, no murmur, no edema, distal pulses normal. Gastrointestinal soft, non-tender, no rebound, no guarding, normal bowel sounds, no distension, no pulsatile mass. Genitourinary no CVA tenderness. Musculoskeletal no midline vertebral tenderness, full range of motion, no calf swelling, no tenderness of extremities, no meningismus, good pulses, neurovascularly intact. Skin pink, warm, & dry, no rash, skin atraumatic. Neurologic awake, alert and oriented x 3, AAOx3, moves all 4 extremities equally, motor intact, sensory intact, CN II-XII intact, normal cerebellar, normal vision, normal speech. Psychiatric normal mood/affect. Heme/Lymph/Immune no lymphadenopathy. Differential Diagnosis: Differential diagnosis includes but is not limited to: ACS, atypical chest pain, pneumothorax, pneumonia, pulmonary embolism, aortic dissection, congestive heart failure, tumor, musculoskeletal pain, esophageal pain, GERD, peptic ulcer disease, pancreatitis Medical Decision Making: Plan for this patient IV establishment with groundwater monitoring technician, EKG, troponin, chest x-ray, basic labs, and re-evaluate. Re-evaluation: EKG interpretation by me on record in [employer] system. Impression time of EKG 1427, sinus rhythm rate of 94, however large amount of motion artifact due the patient's underlying Parkinson's. I do not appreciate acute ischemia however there is a large amount of artifact. Will need to repeat her EKG. When I compare this to her old EKG similar in nature however some motion artifact. EKG interpretation by me on record in [employer] system. Impression time of EKG 1501, sinus rhythm rate of 92, no signs of acute ischemia. This was a repeat EKG as the initial EKG was limited due to motion artifact. 1710: Patient re-evaluated this time she is sleeping in the emergency room. Denies chest pain at this time. Her workup for chest pain she had a positive D-dimer to lead to his CT angiogram it is a very limited study and multiple contrast boluses were attempted however does show a small subsegmental pulmonary embolism. This could be the cause of her chest pain. Her EKG I do not appreciate acute ischemia. Her troponin is noted to be negative. Given her chest pain, cardiac risk factors, age, PE on CT plan will be for hospital admission. Spoke with Dr. Wolf agrees to admit. Source: Patient, EMS - Medical/Surgical History Hx Asthma: Yes Hx Chronic Respiratory Disease: Yes Hx Diabetes: Yes Hx Cardiac Disease: Yes Hx Renal Disease: No Hx Cirrhosis: No Hx Alcoholism: No Hx HIV/AIDS: No Hx Splenectomy or Spleen Trauma: No Other PMH: hyperlipidemia, IDDM, cellulitis, chronic ischemic heart disease, chronic pain, depression, Parkinsons, mood disorder - Social History Smoking Status: Never smoked Constitutional: Initial Vital Signs O2 Sat (%) 95 12/29/18 14:25 O2 Delivery Mode Nasal Cannula O2 (L/minute) 2.5 Allergies/Adverse Reactions: latex Allergy (Verified 01/20/18 13:45) Home Medications: Medication Instructions Recorded Aspirin [Aspirin 81mg (*)] 81 mg PO DAILY 08/07/16 Carbidopa/Levodopa 25/100Mg 2 tab PO QID 08/07/16 [Sinemet 25/100 MG (*)] DULoxetine [Cymbalta 60 MG (*)] 60 mg PO BID 08/07/16 Fenofibrate [Tricor] 48 mg PO DAILY 08/07/16 Gabapentin [Neurontin 400 MG (*)] 1,200 mg PO BID@08/07/16 Insulin Glargine [Lantus 100 40 units SC BID 08/07/16 UNITS/ML] MILNACIPRAN HCL [Savella 50 mg] 75 mg PO BID 08/07/16 Metoprolol Tartrate [Lopressor 25 12.5 mg PO DAILY 08/07/16 mg (*)] Omeprazole 20 mg PO BID 08/07/16 sitaGLIPtin PHOSPHATE [Januvia 100 100 mg PO DAILY 08/07/16 MG (*)] Acetaminophen [Tylenol 325mg (*)] 650 mg PO Q6HRS PRN 09/21/17 Atorvastatin Calcium [Lipitor 40 40 mg PO DAILY 09/21/17 mg (*)] Cholecalciferol Vit D3 [Vitamin D3 50,000 unit PO Q30D 09/21/17 (*)] Fluticasone Nasal [Flonase Nasal 2 sprays NASAL HS 09/21/17 [place]] Nystatin [Mycostatin Cream (RX)] 1 leandra TP DAILY PRN 09/21/17 SUMAtriptan [Imitrex 50 MG (*)] 50 mg PO Q2H PRN 09/21/17 Albuterol [Proventil Inhaler HFA 1 puffs IH Q4H PRN 01/26/18 (*)] Magnesium Oxide [Magnesium Oxide 400 mg PO BID PRN 01/26/18 400 mg (*)] Nystatin Powder [Mycostatin Powder] 1 leandra TP DAILY PRN 01/26/18 Cetirizine [ZyrTEC 10 mg (*)] 10 mg PO DAILY tab 01/31/18 HYDROmorphone HCL [Dilaudid 4 mg 4 mg PO Q8HRS PRN 12/29/18 (*)] Insulin NPH Human Isophane 10 unit SQ BID 12/29/18 [Novolin N] Lidocaine [Lidoderm] 1 each TP DAILY 12/29/18 Melatonin [Melatonin 3 MG (*)] 3 mg PO HS 12/29/18 Multivitamins W-Minerals [Thera M 1 each PO DAILY 12/29/18 Plus Tablet (*)] Oxybutynin Chloride [Ditropan Xl] 10 mg PO DAILY 12/29/18 cycloSPORINE 0.05% [Restasis Opht 1 drop EACHEYE BID 12/29/18 Drops(*)] diphenhydrAMINE [Benadryl 25 MG 25 mg PO DAILY 12/29/18 (*)] fentaNYL [Duragesic 12 MCG Patch 12 mcg TD Q72H 12/29/18 (*)] guaiFENesin [Mucinex 600 MG (*)] 600 mg PO BID 12/29/18 Apixaban [Eliquis] 5 mg PO BID 30 Days #60 tab 12/30/18 Apixaban [Eliquis] 10 mg PO BID 7 Days #14 tab 12/30/18 Medical Decision Making - Data Points Laboratory Results: Laboratory Results 12/29/18 14:50 12/29/18 14:50 Medications Given: Discontinued Medications Acetaminophen (Tylenol) 650 mg PO Q4HRS PRN PRN Reason: Pain, Mild/Fever, Can Take PO Stop: 06/27/19 17:31 Last Admin: 12/30/18 10:38 Dose: 650 mg Aspirin (Aspirin) 324 mg PO EDNOW ONE Stop: 12/29/18 14:26 Last Admin: 12/29/18 14:38 Dose: 324 mg Aspirin (Aspirin) 81 mg PO DAILY [facility] Stop: 06/28/19 08:59 Last Admin: 12/30/18 08:53 Dose: 81 mg Atorvastatin Calcium (Lipitor) 40 mg PO DAILY [facility] Stop: 06/28/19 08:59 Last Admin: 12/30/18 08:52 Dose: 40 mg Carbidopa/Levodopa (Sinemet) 2 tab PO QID [facility] Stop: 06/27/19 20:59 Last Admin: 12/30/18 16:49 Dose: 2 tab Cetirizine HCl (Zyrtec) 10 mg PO DAILY [facility] Stop: 06/28/19 08:59 Last Admin: 12/30/18 08:53 Dose: 10 mg Cyclosporine (Restasis) 1 drop EACHEYE BID [facility] Stop: 06/27/19 20:59 Last Admin: 12/30/18 13:19 Dose: Not Given Diclofenac Sodium (Diclofenac Sodium 1% Gel) 4 gm TP QID@08,12,16,20 [facility] Stop: 06/27/19 19:59 Last Admin: 03/22/19 16:53 Dose: 4 gm Duloxetine HCl (Cymbalta) 60 mg PO BID [facility] Stop: 06/27/19 20:59 Last Admin: 12/30/18 08:52 Dose: 60 mg Enoxaparin Sodium (Lovenox) 140 mg SC BID [facility] Stop: 06/27/19 20:59 Last Admin: 12/30/18 09:00 Dose: 140 mg Fenofibrate (Tricor) 48 mg PO DAILY [facility] Stop: 06/28/19 08:59 Last Admin: 12/30/18 08:53 Dose: 48 mg Fentanyl (Duragesic) 12 mcg TD Q72H [facility] Stop: 01/08/19 17:44 Last Admin: 12/30/18 03:13 Dose: Not Given Fluticasone Propionate (Flonase Nasal [place]) 2 sprays [place] HS [facility] Stop: 06/27/19 20:59 Last Admin: 12/29/18 20:06 Dose: 2 spray Gabapentin (Neurontin) 1,200 mg PO BID@ [facility] Stop: 06/27/19 18:59 Last Admin: 12/30/18 08:52 Dose: 1,200 mg Guaifenesin (Mucinex) 600 mg PO BID [facility] Stop: 06/27/19 20:59 Last Admin: 12/30/18 08:53 Dose: 600 mg Hydromorphone HCl (Dilaudid) 4 mg PO Q8HRS PRN PRN Reason: Pain, Severe Stop: 01/08/19 17:33 Last Admin: 12/30/18 10:38 Dose: 4 mg Sodium Chloride (Ns) 500 mls @ 1,000 mls/hr IV EDNOW ONE PRN Reason: Protocol Stop: 12/29/18 14:54 Last Admin: 12/29/18 14:39 Dose: 500 mls Insulin Glargine (Lantus Syringe) 40 units SC BID [facility] Stop: 06/27/19 20:59 Last Admin: 12/30/18 10:21 Dose: 40 units Insulin Human Lispro (Humalog Lispro) 0 unit SC TIDMEAL [facility] PRN Reason: Protocol Stop: 06/27/19 19:44 Last Admin: 12/30/18 13:19 Dose: Not Given Insulin Human NPH (Humulin N Syringe) 10 units SC BID [facility] Stop: 06/27/19 20:59 Last Admin: 12/30/18 10:21 Dose: 10 units Lorazepam (Ativan Injection) 1 mg IVP EDNOW ONE Stop: 12/29/18 14:32 Last Admin: 12/29/18 14:38 Dose: 1 mg Melatonin (Melatonin) 3 mg PO HS [facility] Stop: 06/27/19 20:59 Last Admin: 12/29/18 20:01 Dose: 3 mg Metoprolol Tartrate (Lopressor) 12.5 mg PO DAILY [facility] Stop: 06/28/19 08:59 Last Admin: 12/30/18 08:52 Dose: 12.5 mg Miscellaneous Information (Patch Removal) 1 ea TD DAILY [facility] Stop: 06/28/19 08:59 Last Admin: 12/30/18 10:32 Dose: 1 ea Miscellaneous Medication (Milnacipran Hcl [Savella 50 Mg]) 75 mg PO BID [facility] Stop: 06/27/19 20:59 Last Admin: 12/30/18 10:26 Dose: Not Given Nitroglycerin (Nitrostat) 0.4 mg SL Q5M PRN PRN Reason: Chest Pain Last Admin: 12/29/18 14:38 Dose: 0.4 tab Oxybutynin Chloride (Ditropan Xl) 10 mg PO DAILY21 [facility] Stop: 06/27/19 20:59 Last Admin: 12/29/18 20:42 Dose: 10 mg Pantoprazole Sodium (Protonix) 40 mg PO BID [facility] Stop: 06/28/19 08:59 Last Admin: 12/30/18 08:53 Dose: 40 mg Sitagliptin Phosphate (Januvia) 100 mg PO DAILY [facility] Stop: 06/28/19 08:59 Last Admin: 12/30/18 08:53 Dose: 100 mg Point of Care Test Results: Chemistry 12/29/18 14:54 POC Troponin I 0.00 ng/mL ng/mL (0.00-0.08) Departure - Departure Disposition: [facility] Acute Clinical Impression: Chest pain Qualifiers: Chest pain type: unspecified Qualified Code(s): R07.9 - Chest pain, unspecified Pulmonary embolism Qualifiers: Pulmonary embolism type: other Chronicity: acute Acute cor pulmonale presence: without acute cor pulmonale Qualified Code(s): I26.99 - Other pulmonary embolism without acute cor pulmonale Condition: Good
[2018-12-29] MEDS ORDERED: LORazepam 2 MG/ML INJ IVP ONE (14:31)
[2018-12-29 15:01] LABS: PLATELET COUNT 257 10^3/uL (150-400)
[2018-12-29 15:15] LABS: CREATINE KINASE 68 IU/L (0-156)
[2018-12-29 15:19] LABS: INR 0.98 (0.83-1.16); PROTIME(PATIENT) 12.6 SEC (12.0-15.0)
[2018-12-29] MEDS ORDERED: IOPAMIDOL (ISOVUE-370) 150 ML BTL IV ONE (15:42)
[2018-12-29] MEDS ORDERED: ONDANSETRON 4 MG/2 ML VIAL IVP PRN (17:32)
[2018-12-29] MEDS ORDERED: ONDANSETRON DISINTEGRATING 4 MG TAB PO PRN (17:32)
[2018-12-29] MEDS ORDERED: NYSTATIN POWDER 15 GM BTL TP PRN (17:34)
[2018-12-29] MEDS ORDERED: ALBUTEROL 60 PUFFS/8 GM MDI IH PRN (17:34)
[2018-12-29] MEDS ORDERED: NYSTATIN 15 GM CR TUBE TP PRN (17:34)
[2018-12-29] MEDS ORDERED: SUMAtriptan 50 MG TAB PO PRN (17:34)
[2018-12-29] MEDS ORDERED: fentaNYL 12 MCG PATCH TD SCH (17:45)
[2018-12-29] MEDS: GABAPENTIN 400 MG CAP PO SCH (18:19)
--- NOTE | 2018-12-29 19:10 | PDGENHP ---
History and Physical - Chief Complaint chest pain - History of Present Illness 63yo F with morbid obesity, CAD, remote PE off anticoagulation, Parkinson's, chronic pain presents with over 1 week of chest pain. Left side of chest is most intense but feels pressure all over chest area. Associated with shortness of breath, especially with exertion. No cough, hemoptysis or fevers/chills. She did notice some left lower leg swelling about 5 days ago but this has gone down. She reportedly had an ECG at her assisted living yesterday that was abnormal that prompted her to be sent to the ED today. In the ED, her d-dimer was elevated so a CTA chest was obtained. This was a difficult study but did show a partially occlusive thrombus in the segmental branches of the right lower lobe. She is currently chest pain free. She is being admitted for further evaluation and management. Case discussed with ED physician Mariano Hernandez. History Information - Allergies/Home Medication List Allergies/Adverse Reactions: latex Allergy (Verified 01/20/18 13:45) Home Medications: Aspirin [Aspirin 81mg (*)] 81 mg PO DAILY 08/07/16 [Last Taken 01/26/18] Carbidopa/Levodopa 25/100Mg [Sinemet 25/100 MG (*)] 2 tab PO QID 08/07/16 [Last Taken 01/26/18 09:00] DULoxetine [Cymbalta 60 MG (*)] 60 mg PO BID 08/07/16 [Last Taken 01/26/18] Fenofibrate [Tricor] 48 mg PO DAILY 08/07/16 [Last Taken 01/26/18] Gabapentin [Neurontin 400 MG (*)] 1,200 mg PO BID@08/07/16 [Last Taken ] Insulin Glargine [Lantus 100 UNITS/ML] 40 units SC BID 08/07/16 [Last Taken ] MILNACIPRAN HCL [Savella 50 mg] 75 mg PO BID 08/07/16 [Last Taken 01/26/18] Metoprolol Tartrate [Lopressor 25 mg (*)] 12.5 mg PO DAILY 08/07/16 [Last Taken 01/26/18] Omeprazole 20 mg PO BID 08/07/16 [Last Taken 01/26/18] sitaGLIPtin PHOSPHATE [Januvia 100 MG (*)] 100 mg PO DAILY 08/07/16 [Last Taken 01/26/18] Acetaminophen [Tylenol 325mg (*)] 650 mg PO Q6HRS PRN 09/21/17 [Last Taken 09/17] Atorvastatin Calcium [Lipitor 40 mg (*)] 40 mg PO DAILY 09/21/17 [Last Taken ] Cholecalciferol Vit D3 [Vitamin D3 (*)] 50,000 unit PO Q30D 09/21/17 [Last Taken 01/06/18] Diclofenac Sodium 1% [Voltaren Gel (*)] 4 gm TP QID@08,12,16,20 09/21/17 [Last Taken 01/26/18 12:00] Fluticasone Nasal [Flonase Nasal [place]osta] 2 sprays NASAL HS 09/21/17 [Last Taken 01/25/18] Nystatin [Mycostatin Cream (RX)] 1 leandra TP DAILY PRN 09/21/17 [Last Taken ] SUMAtriptan [Imitrex 50 MG (*)] 50 mg PO Q2H PRN 09/21/17 [Last Taken 01/20/18] Albuterol [Proventil Inhaler HFA (*)] 1 puffs IH Q4H PRN 01/26/18 [Last Taken Unknown] Magnesium Oxide [Magnesium Oxide 400 mg (*)] 400 mg PO BID PRN 01/26/18 [Last Taken Unknown] Nystatin Powder [Mycostatin Powder] 1 leandra TP DAILY PRN 01/26/18 [Last Taken Unknown] HYDROmorphone HCL [Dilaudid 4 mg (*)] 4 mg PO Q8HRS PRN 12/29/18 [Last Taken Unknown] Insulin NPH Human Isophane [Novolin N] 10 unit SQ BID 12/29/18 [Last Taken Unknown] Lidocaine [Lidoderm] 1 each TP DAILY 12/29/18 [Last Taken Unknown] Melatonin [Melatonin 3 MG (*)] 3 mg PO HS 12/29/18 [Last Taken Unknown] Multivitamins W-Minerals [Thera M Plus Tablet (*)] 1 each PO DAILY 12/29/18 [ Last Taken Unknown] Oxybutynin Chloride [Ditropan Xl] 10 mg PO DAILY 12/29/18 [Last Taken Unknown] cycloSPORINE 0.05% [Restasis Opht Drops(*)] 1 drop EACHEYE BID 12/29/18 [Last Taken Unknown] diphenhydrAMINE [Benadryl 25 MG (*)] 25 mg PO DAILY 12/29/18 [Last Taken Unknown ] fentaNYL [Duragesic 12 MCG Patch (*)] 12 mcg TD Q72H 12/29/18 [Last Taken Unknown] guaiFENesin [Mucinex 600 MG (*)] 600 mg PO BID 12/29/18 [Last Taken Unknown] I have personally reviewed and updated: family history, medical history, social history, surgical history - Past Medical History Additional medical history: morbid obesity, insulin dependent diabetes, chronic pain with continuous opioid use, remote PE (she thinks prior to 2009), Parkinson 's, CAD with LAD stent in 1999, DIONISIO, HTN, HLD, depression, RAD, migraine headaches, IBS, chronic oxygen dependence (2.5L) - Surgical History Additional surgical history: No recent surgery. - Family History Positive for: non-pertinent - Social History Smoking Status: Never smoked Alcohol Use: None Drug Use: None Additional social history: Lives in assisted living at [facility]. Review of Systems Review of Systems: ROS: 10pt was reviewed & negative except for what was stated in HPI & below Physical Exam Physical Exam: Temp Pulse Resp BP Pulse Ox 36.8 C 92 12 137/66 H 99 12/29/18 18:15 12/29/18 18:15 12/29/18 18:15 12/29/18 18:15 12/29/18 18:15 O2 (L/minute) 2 Constitutional: no apparent distress, obese Eyes: PERRL Ears, Nose, Mouth, Throat: moist mucous membranes, hearing normal, ears appear normal, no oral mucosal ulcers Cardiovascular: regular rate and rhythym, no murmur, rub, or gallop, No edema Respiratory: no respiratory distress, no rales or rhonchi, clear to auscultation Gastrointestinal: normoactive bowel sounds, soft, non-tender abdomen, no palpable masses Genitourinary: no bladder fullness, no bladder tenderness Skin: warm, normal color, no rashes or abrasions, no fluctuance, no induration, No mottled Musculoskeletal: other (tenderness to palpation over chest) Neurologic: AAOx3 Psychiatric: interacting appropriately Lab Data & Imaging Review 12/29/18 14:50 12/29/18 14:50 WBC 11.87 10^3/uL (3.80-9.50) H 12/29/18 14:50 RBC 4.62 10^6/uL (4.18-5.33) 12/29/18 14:50 Hgb 13.1 g/dL (12.6-16.3) 12/29/18 14:50 Hct 41.7 % (38.0-47.0) 12/29/18 14:50 MCV 90.3 fL (81.5-99.8) 12/29/18 14:50 MCH 28.4 pg (27.9-34.1) 12/29/18 14:50 MCHC 31.4 g/dL (32.4-36.7) L 12/29/18 14:50 RDW 14.3 % (11.5-15.2) 12/29/18 14:50 Plt Count 257 10^3/uL (150-400) 12/29/18 14:50 MPV 10.1 fL (8.7-11.7) 12/29/18 14:50 Neut % (Auto) 61.8 % (39.3-74.2) 12/29/18 14:50 Lymph % (Auto) 25.8 % (15.0-45.0) 12/29/18 14:50 Glascock % (Auto) 5.5 % (4.5-13.0) 12/29/18 14:50 Eos % (Auto) 5.9 % (0.6-7.6) 12/29/18 14:50 Baso % (Auto) 0.7 % (0.3-1.7) 12/29/18 14:50 Nucleat RBC Rel Count 0.0 % (0.0-0.2) 12/29/18 14:50 Absolute Neuts (auto) 7.34 10^3/uL (1.70-6.50) H 12/29/18 14:50 Absolute Lymphs (auto) 3.06 10^3/uL (1.00-3.00) H 12/29/18 14:50 Absolute Monos (auto) 0.65 10^3/uL (0.30-0.80) 12/29/18 14:50 Absolute Eos (auto) 0.70 10^3/uL (0.03-0.40) H 12/29/18 14:50 Absolute Basos (auto) 0.08 10^3/uL (0.02-0.10) 12/29/18 14:50 Absolute Nucleated RBC 0.00 10^3/uL (0-0.01) 12/29/18 14:50 Immature Gran % 0.3 % (0.0-1.1) 12/29/18 14:50 Immature Gran # 0.04 10^3/uL (0.00-0.10) 12/29/18 14:50 PT 12.6 SEC (12.0-15.0) 12/29/18 14:50 INR 0.98 (0.83-1.16) 12/29/18 14:50 APTT 24.1 SEC (23.0-38.0) 12/29/18 14:50 D-Dimer 0.87 ug/mLFEU (0.00-0.50) H 12/29/18 14:50 Sodium 137 mEq/L (135-145) 12/29/18 14:50 Potassium 4.7 mEq/L (3.5-5.2) 12/29/18 14:50 Chloride 104 mEq/L (97-110) 12/29/18 14:50 Carbon Dioxide 23 mEq/l (22-31) 12/29/18 14:50 Anion Gap 10 mEq/L (6-14) 12/29/18 14:50 BUN 22 mg/dL (7-23) 12/29/18 14:50 Creatinine 1.0 mg/dL (0.6-1.0) 12/29/18 14:50 Estimated GFR 56 12/29/18 14:50 Glucose 251 mg/dL (70-100) H 12/29/18 14:50 Calcium 9.3 mg/dL (8.5-10.4) 12/29/18 14:50 Magnesium 1.8 mg/dL (1.6-2.3) 12/29/18 14:50 Total Bilirubin 0.5 mg/dL (0.1-1.4) 12/29/18 14:50 Conjugated Bilirubin 0.5 mg/dL (0.0-0.5) 12/29/18 14:50 Unconjugated Bilirubin 0.0 mg/dL (0.0-1.1) 12/29/18 14:50 AST 37 IU/L (14-46) 12/29/18 14:50 ALT 15 IU/L (9-52) 12/29/18 14:50 Alkaline Phosphatase 114 IU/L (38-126) 12/29/18 14:50 Creatine Kinase 68 IU/L (0-156) 12/29/18 14:50 CK-MB (CK-2) Fraction 1.38 ng/mL (0.00-4.55) 12/29/18 14:50 POC Troponin I 0.00 ng/mL (0.00-0.08) 12/29/18 14:54 NT-Pro-B Natriuret Pep 43 pg/mL (0-125) 12/29/18 14:50 Total Protein 6.6 g/dL (6.3-8.2) 12/29/18 14:50 Albumin 3.7 g/dL (3.5-5.0) 12/29/18 14:50 Lipase 21 IU/L (23-300) L 12/29/18 14:50 Assessment & Plan Assessment: 63yo F with morbid obesity, CAD, remote PE off anticoagulation, Parkinson's, chronic pain presents with over 1 week of chest pain found to have PE. Plan: #Acute PE: Segmental involving RLL. This is most likely provoked in setting of her sedentary lifestyle. Hemodynamically stable. - LMWH 1mg/kg q12h - Check LLE ultrasound - Discuss oral options in AM. She will likely require lifelong anticoagulation given this is her second PE #Chest pain: Unclear if above is causing this. - Trend serial trop/ecg - Obtain TTE - Not good candidate for stress test given PE. Recommend discussing with cardiology if echo is abnormal #Chronic hypoxemia: She is on her baseline 2-2.5L. #CAD: Continue aspirin, statin, beta hebert. #Diabetes: Continue home insulin regimen. Will add SSI and regular BG checks. #Chronic pain/fibromyalgia: Continue home narcotics and adjunctive therapies. #Parkinson's: Continue sinemet. Diet: carb controlled Code: full Dispo: Admit as inpatient, will likely require >2 midnights of care
[2018-12-29] MEDS ORDERED: D50W 25 GM/50 ML SYR IVP PRN (19:42)
[2018-12-29] MEDS: CARBIDOPA/LEVODOPA 25 MG/100 MG TAB PO SCH (20:00)
[2018-12-29] MEDS: guaiFENesin 600 MG TAB.ER PO SCH (20:00)
[2018-12-29] MEDS: DULoxetine 60 MG CAP PO SCH (20:01)
[2018-12-29] MEDS: DICLOFENAC SODIUM 1% 100 GM GEL TP SCH (20:05)
[2018-12-29] MEDS: INSULIN GLARGINE 100 UNITS/ML UNIT SC SCH (20:06)
[2018-12-29] MEDS: ENOXAPARIN 150 MG/ML SYR SC SCH (20:33)
[2018-12-29] MEDS: HYDROmorphONE/DILAUDID 4 MG TAB PO PRN (20:34)
[2018-12-29] MEDS: MILNACIPRAN HCL PO SCH (20:38)
[2018-12-29] MEDS: ACETAMINOPHEN 325 MG TAB PO PRN (20:42)
[2018-12-29] MEDS: INSULIN NPH HUMAN 100 UNITS/ML SYR SC SCH (20:43)
[2018-12-29] MEDS: INSULIN LISPRO 100 UNIT/ML SC SCH (20:43)
[2018-12-29] MEDS ORDERED: FLUTICASONE NASAL 120 SPRAYS/16 GM MDI EACHNARE SCH (21:00)
[2018-12-29] MEDS ORDERED: OXYBUTYNIN 5 MG EXT REL TAB PO SCH (21:00)
[2018-12-29] MEDS ORDERED: MELATONIN 3 MG TAB PO SCH (21:00)
[2018-12-30] MEDS: cycloSPORINE 0.05% 30 DROPERETTE/BOX EACHEYE SCH ×2 (03:11→13:19)
[2018-12-30 04:30] LABS: PLATELET COUNT 231 10^3/uL (150-400)
[2018-12-30] MEDS: CARBIDOPA/LEVODOPA 25 MG/100 MG TAB PO SCH ×3 (06:06→16:49)
[2018-12-30] MEDS ORDERED: INSULIN LISPRO 100 UNIT/ML SC SCH (08:00)
[2018-12-30] MEDS: GABAPENTIN 400 MG CAP PO SCH (08:52)
[2018-12-30] MEDS: DULoxetine 60 MG CAP PO SCH (08:52)
[2018-12-30] MEDS: guaiFENesin 600 MG TAB.ER PO SCH (08:53)
[2018-12-30] MEDS ORDERED: PANTOPRAZOLE SODIUM 40 MG TAB PO SCH (09:00)
[2018-12-30] MEDS ORDERED: CETIRIZINE 10 MG TAB PO SCH (09:00)
[2018-12-30] MEDS: ENOXAPARIN 150 MG/ML SYR SC SCH (09:00)
[2018-12-30] MEDS ORDERED: PATCH REMOVAL 1 EA PATCH TD SCH (09:00)
[2018-12-30] MEDS ORDERED: ATORVASTATIN CALCIUM 40 MG TAB PO SCH (09:00)
[2018-12-30] MEDS ORDERED: ASPIRIN 81 MG CHEWABLE TAB PO SCH (09:00)
[2018-12-30] MEDS ORDERED: METOPROLOL TARTRATE 25 MG TAB PO SCH (09:00)
[2018-12-30] MEDS ORDERED: ENOXAPARIN 40 MG/0.4 ML SYR SC SCH (09:00)
[2018-12-30] MEDS ORDERED: FENOFIBRATE 48 MG TAB PO SCH (09:00)
[2018-12-30] MEDS: INSULIN LISPRO 100 UNIT/ML SC SCH ×2 (09:32→13:19)
[2018-12-30] MEDS: INSULIN GLARGINE 100 UNITS/ML UNIT SC SCH (10:21)
[2018-12-30] MEDS: INSULIN NPH HUMAN 100 UNITS/ML SYR SC SCH (10:21)
[2018-12-30] MEDS: DICLOFENAC SODIUM 1% 100 GM GEL TP SCH ×3 (10:25→16:53)
[2018-12-30] MEDS: MILNACIPRAN HCL PO SCH (10:26)
[2018-12-30] MEDS: ACETAMINOPHEN 325 MG TAB PO PRN (10:38)
[2018-12-30] MEDS: HYDROmorphONE/DILAUDID 4 MG TAB PO PRN (10:38)
[2018-12-30 11:50] VITALS: BP 129/51
--- NOTE | 2018-12-30 12:46 | ECHO ---
[email or web address] [address] Main: [phone] Echocardiography Examination Transthoracic Name: SUSI POLANCO MR#: [id number] Study Date: 12/30/2018 Study Time: 11:25 AM Date of : 1955 Age: 63 year(s) Height: 162.6 cm (64 in.) Weight: 136.08 kg (300 lb.) BSA: 2.32 m2 Gender: Female Examination: Echo Contrast: Image Quality: Technically Difficult Rhythm: Heart Rate: BP: / Indication: Eval ventricular function/wall motion Procedure Staff Referring Physician: Information And Referral Director: Esperanza Durbin [facility] Reading Physician: Kam Green MD Requesting Provider: Ordering Physician: Fernando Wolf Indication: Eval ventricular function/wall motion Measurements Chambers AV/MV Label Value Normal Value Label Value Normal Value IVSd, 2D 0.8 cm (0.6cm - 1.1cm) AV PGmean 4 mmHg LVDd, 2D 5.2 cm (3.9cm - 5.3cm) AV Vmax 1.3 m/s LVDs, 2D 3.2 cm (2.1cm - 4cm) MV A Vmax 0.98 m/s LVEF, 2D 69 % (54% - 74%) MV E' lateral 0.06 m/s LVPWd, 2D 0.7 cm MV E' mean 0.06 m/s LADs, 2D 4 cm (2.7cm - 3.8cm) MV E' septal 0.05 m/s Additional Vessels MV E Vmax 0.76 m/s Label Value Normal Value MV E/A 0.78 AoAsc 3.3 cm MV E/E' lateral 13.7 AoRoot, MM 3 cm (2.2cm - 3.7cm) MV E/E' mean 13.82 MV E/E' septal 15.3 (0.45 - 1.25) TV/PV Label Value Normal Value RA Pressure 5 mmHg RVSP 22 mmHg TR Pmax 17 mmHg TR Vmax 2.08 m/s Patient: SUSI POLANCO Study Date: 12/30/2018 Page 1 of 2 11:25 AM Conclusions Left Ventricle: Normal global systolic left ventricular function. Mitral Valve: There is mitral annular calcification. Aortic Valve: Mild mitral valve annular calcification.. Tricuspid Valve: Trivial tricuspid regurgitation. Right Ventricular systolic pressure is measured at 22 mmHg. Findings Left Ventricle: Normal global systolic left ventricular function. This study is inadequate for the evaluation of regional wall motion. Mitral Valve: There is mitral annular calcification. Aortic Valve: Mild mitral valve annular calcification.. Tricuspid Valve: Tricuspid valve is poorly visualized. Trivial tricuspid regurgitation. Right Ventricular systolic pressure is measured at 22 mmHg. Pulmonic Valve: Pulmonic valve is poorly visualized. Aorta: The aortic root size in M-mode measures 3.0 cm. The ascending aorta measures 3.3 cm. Aorta Measurements AoRoot, MM is 3.0 cm. Pericardium: A pericardial fat pad is present. Exam Details Procedure Ordered: Echo Image Quality: Technically Difficult (No Signature Object) Patient: SUSI POLANCO Study Date: 12/30/2018 Page 2 of 2 11:25 AM [id number]
--- NOTE | 2018-12-30 13:04 | ASMTCMCOM ---
CM Note CM Note Notes: 12/30/2018 Case Management Note Reviewed chart. Discussed in rounds. Pt admitted for CP and PE. Pt resides at [facility]. Faxed referral via [employer] and confirmed with Crystal with [facility] [phone]. PASRR is unneccesary per Jeannette as pt resides in [facility]. [place] ready for pt to return when medically stable. Case Management d/c poc: return to [facility] Case Management to follow. Date Signed: 12/30/2018 01:03 PM Electronically Signed By:Sarai Pascual RN
--- NOTE | 2018-12-30 14:37 | PDIAF ---
- Diagnosis Code Status: Full Code - Medication Management Discharge Medications: electronically signed and located in the Home Medication List. - Orders Services needed: Registered Nurse, Physical Therapy, Occupational Therapy Isolation Type: None Diet Recommendation: no restrictions on diet Diet Texture: Regular Texture Diet Additional Instructions: resume activity as tolerated. start taking eliquis 10mg twice daily for 7 days then decrease to 5mg twice daily from then on. follow up with your primary care doctor. - Follow Up Care Current Providers and Referrals: Patient,NotPresent [Unknown] - As per Instructions
--- NOTE | 2018-12-30 15:25 | ASMTLACE ---
LACE Length of stay for Answers: Less than 1 day current admission Acuity / Level of Answers: Yes Care: Did the patient have an inpatient admission? Comorbidities - select Answers: Congestive heart failure all that apply Coronary Artery Disease Diabetes (uncontrolled or controlled) Other Notes: Parkinson's disease; HTN; PE # of Emergency department Answers: 1-2 visits in the last 6 months Score: 10 Date Signed: 12/30/2018 03:23 PM Electronically Signed By:Sveta Payne RN
--- NOTE | 2018-12-30 15:27 | ASMTDCNOTE ---
Case Management Discharge Discharge Order Complete? Answers: Yes Patient to Obtain Answers: Other Notes: [place] Medications Transportation Arranged Answers: Other Notes: [facility] per Transport will Pick (Date 12/30/2018 05:15 PM & Time) Faxed Final Orders Answers: Yes Discharge Comments Notes: Discharged back to [place]. Transport w [facility] estuardo Ruiz at . [place] to call report Date Signed: 12/30/2018 03:25 PM Electronically Signed By:Sveta Payne RN
--- NOTE | 2018-12-30 17:44 | PDDCSUM ---
Discharge Summary Discharge Summary: Discharge diagnosis Pulmonary embolism Chest pain Morbid obesity Parkinson's disease Coronary artery disease Patient presented to the emergency room complaints of chest pain similar to previous presentations when she had a pulmonary embolism. CT was obtained which showed a pulmonary embolism. She was started on heparin. Echocardiogram showed no evidence of right heart strain or heart failure. She was transitioned over to Eliquis 10 mg twice daily for 7 days with instructions to decrease to 5 mg p. O. Twice daily after that. Her chest pain lessened and eventually resolved on the day of discharge. 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 She was discharged back to have no [place] in good condition to follow up with primary care physician physician Disposition Back to [place] in good condition New medications Eliquis 10 mg twice daily x7 days then 5 mg twice daily
[2018-12-30] MEDS ORDERED: fentaNYL 12 MCG PATCH TD SCH (17:45)
[2018-12-30] MEDS ORDERED: LIDOCAINE 4%/MENTHOL 1% PATCH TD SCH (21:00)
[2018-12-30] MEDS ORDERED: APIXABAN 5 MG TAB PO SCH (21:00)
--- NOTE | 2018-12-31 07:55 | CPEKG ---
Test Reason : OPEN Blood Pressure : / mmHG Vent. Rate : 094 BPM Atrial Rate : 099 BPM P-R Int : 153 ms QRS Dur : 098 ms QT Int : 340 ms P-R-T Axes : 071 064 056 degrees QTc Int : 426 ms Sinus rhythm Ventricular premature complex Low voltage, extremity and precordial leads Confirmed by Mariano Hernandez ([id number]) on 12/31/2018 7:55:09 AM Referred By: Mariano Hernandez Confirmed By:Mariano Hernandez
--- NOTE | 2018-12-31 07:55 | CPEKG ---
Test Reason : OPEN Blood Pressure : / mmHG Vent. Rate : 092 BPM Atrial Rate : 092 BPM P-R Int : 139 ms QRS Dur : 077 ms QT Int : 343 ms P-R-T Axes : 074 070 071 degrees QTc Int : 425 ms Sinus rhythm Low voltage, precordial leads Confirmed by Mariano Hernandez ([id number]) on 12/31/2018 7:55:09 AM Referred By: Mariano Hernandez Confirmed By:Mariano Hernandez
[2019-01-06] MEDS ORDERED: APIXABAN 5 MG TAB PO SCH (21:00)
== END 2018-12-30 17:27 | DRG 176 ==
LOC: EDUNIT# → OBSVTOIN 17:34 → F2W 17:55
PROVIDERS: ADMIT Internal Medicine; ATTEND Internal Medicine
DX: I26.99 Other pulmonary embolism without acute cor pulmonale (principal); G20 Parkinson's disease; I25.10 Atherosclerotic heart disease of native coronary artery without angina pectoris; E11.9 Type 2 diabetes mellitus without complications; E78.5 Hyperlipidemia, unspecified; G47.33 Obstructive sleep apnea (adult) (pediatric); G89.29 Other chronic pain; I10 Essential (primary) hypertension; E66.01 Morbid (severe) obesity due to excess calories; Z68.43 Body mass index [BMI] 50.0-59.9, adult; Z79.4 Long term (current) use of insulin; Z95.5 Presence of coronary angioplasty implant and graft; Z99.81 Dependence on supplemental oxygen
CPT/HCPCS: 84484-ER; 96374; 97116-GP; 97161-GP; J1650; J1815; J2060; Q9967

== ENCOUNTER 2019-01-20 20:00 | Inpatient (IN) | payer OTHER, MEDICAID ==
--- NOTE | 2019-01-20 20:05 | EDPHY ---
General - History Smoking Status: Never smoked Time Seen by Provider: 01/20/19 20:04 Narrative: CLINICAL IMPRESSION: Nausea, vomiting, abdominal pain ASSESSMENT/PLAN: Patient is a 63-year-old female with a significant history of coronary artery disease, pulmonary embolism, fibromyalgia, Parkinson's, obesity and insulin- dependent diabetes who presents to the emergency department with complaints of uncontrolled chronic pain, nausea, vomiting, abdominal pain and inability to keep anything down. ECG revealed nonspecific ST changes, troponin was negative. No findings to suggest ACS. Patient is morbidly obese, she is uncomfortable appearing however not toxic-appearing. Her abdomen was diffusely tender, no focal peritoneal signs. CBC revealed leukocytosis of 15,000. BMP with no significant metabolic abnormality or evidence of acute kidney injury. Lipase and hepatic function panel grossly normal. Glucose was 225, bicarb was normal and there was no gap. No findings to suggest DKA. Abdominal CT revealed no acute findings, discussed with Dr. Sainz radiologist. History and physical examination is consistent with mild dehydration, nausea, vomiting and abdominal pain. Query related to mild withdrawal from chronic pain management which just recently changed from 4 mg of Dilaudid to 10 mg of Percocet. There was no evidence of significant withdrawal, DTs or encephalopathy. There is question about whether patient missed a dose of Eliquis, she was given Eliquis in the emergency department and tolerated this p.o.. She has had no chest pain or shortness of breath, I have a low suspicion for recurrent or worsening pulmonary embolism. She had no findings to suggest DVT. The patient will be admitted for observation and further management, I discussed this case with Dr. Sharp who will be the admitting physician. The patient remained hemodynamically stable in the emergency department, on repeat exam and prior to transfer to the floor her abdomen is still diffusely tender without evidence of a surgical abdomen. DIFFERENTIAL DX: Abdominal pain including but not limited to appendicitis, cholecystitis, gastritis and urinary tract infection. ED COURSE: 2019: Discussed with Dr. Castro 2104: White blood cell count [id number]. 2125: Dr. Castro will evaluate this patient. 2230: Discussed case with Dr. Sainz, no acute findings on CT abdomen and pelvis. CHIEF COMPLAINT: Nausea, vomiting, abdominal pain HPI: Patient is a 63-year-old female who resides at [place] history of pulmonary embolism, coronary artery disease, fibromyalgia, Parkinson's, obesity and insulin-dependent diabetes presents to the emergency department with several days of feeling poorly with a constellation of symptoms. Patient reports on Wednesday she went to a new pain clinic and was transition from 4 mg of Dilaudid and Tylenol down to 10 mg Percocet. Patient reports on Wednesday she started to have some nausea and generally feeling unwell. She feels like her pain has not been adequately controlled. Patient reports feeling hot all the time, denies any fever, chills or rigors. She has been feeling nauseous since Wednesday with an inability to keep anything down since that time including her regular medications. Patient also reports over the last several days she has dysuria, denies any increased frequency or hematuria. Patient was evaluated this morning with a reported abdominal x-ray that revealed constipation, she was given a suppository with an adequate bowel movement, additionally she was given a fleets with no further bowel movements. She has continued to have generalized abdominal pain throughout the day. She denies any chest pain or shortness of breath. She denies any lower extremity swelling. She reports that her blood sugars have been running in the upwards of 400s. No history of DKA. PMH: Coronary artery disease, pulmonary embolism, fibromyalgia, Parkinson's, obesity and insulin-dependent diabetes Pertinent Past Surgical History: Remote cholecystectomy, section Social History: Denies illicit drug use, cigarette smoking or alcohol use REVIEW OF SYSTEMS: All other systems negative Constitutional: Decreased appetite, denies fever or chills. Eyes: No discharge, vision change ENT: No sore throat, congestion, ear pain. Cardiovascular: No chest pain, no palpitations. Respiratory: No cough, no shortness of breath. Gastrointestinal: Abdominal pain, nausea and vomiting. Genitourinary: No hematuria, dysuria, flank pain, pelvic pain. Musculoskeletal: No back pain, joint swelling, joint pain, myalgias. Skin: No rashes, color change. Neurological: No headache, dizziness, weakness. PHYSICAL EXAM: General Appearance: Alert, obese, uncomfortable appearing however not toxic- appearing. HENT: Normocephalic, atraumatic. Bilateral external ears are normal. Bilateral tympanic membranes are normal with pearly chin reflex. Nares are clear, mucosa is pink. Oropharynx is clear however mucosa is very dry, uvula is midline. There is no tonsillar enlargement or exudate. The dentition is normal. Eyes: PERRLA, no acute vision change, nystagmus, swelling, discharge, pain or photosensitivity. Conjunctiva pink, no pallor or injection. Neck: Supple, nontender, no lymphadenopathy, no midline pain, FROM, no meningismus. Respiratory: There are no retractions, lungs are clear to auscultation. Cardiac: Regular rate and rhythm, no murmurs or gallops. Gastrointestinal: Abdomen is obese. She has generalized, nonfocal tenderness to palpation without guarding or focal peritoneal signs. No masses or hernias appreciated. Bowel sounds are present. Neurological: Alert and oriented x 3, CN 2-12 grossly intact, normal gait no ataxia, DTR's intact, normal sensation and strength Skin: Warm, dry, no rashes, no nodules on palpation. Musculoskeletal: Extremities are symmetrical, full range of motion, no tenderness, deformity, swelling, or erythema. Psychiatric: Patient is oriented X 3, there is no agitation. MEDICAL DECISION MAKING: Patient was seen independently. Secondary supervising physician at time of evaluation was Dr. Castro, she also evaluated this patient. Diagnosis: Nausea, vomiting, generalized abdominal pain. New, requires workup Summary: See Assessment and Plan for summary of ED visit Clinical lab tests: ordered / reviewed. Independent visualization of images, tracing, or specimens: Yes. Decision to obtain medical records or history from someone other than the patient: No Review / Summarize previous medical records: Yes Discussed patient with another provider: Yes, Dr. Castro and Dr. Sharp Patient Progress: Stable, admit. (Jenn Camacho) Discussion: This patient was seen and examined by me. She presents with generalized abdominal pain and vomiting. Recently stopped taking Dilaudid. 1st dose Percocet was yesterday. Vomited fairly soon after the 1st dose of Percocet and did not tolerate oral fluids or food yesterday. Today she is tolerating sips of fluids and some yogurt. No pain medications taken today. Does not appear to be in significant withdrawal. No Eliquis x 2 days. Now complains of moderate generalized abdominal pain. On exam, pt non-toxic appearing, quite talkative and vital signs unremarkable. Abdomen is obese, mild diffuse tenderness, no peritoneal signs. CT abd/pelvis unremarkable. No evidence of infection, SBO, bowel perf or other serious etiology. I agree with the assessment and plan. (Jacey Castro) - Objective Vital Signs: Initial Vital Signs Temperature (C) 36.8 C 01/20/19 20:06 Heart Rate 93 01/20/19 20:06 Respiratory Rate 18 01/20/19 20:06 Blood Pressure 160/95 H 01/20/19 20:06 O2 Sat (%) 94 01/20/19 20:06 O2 Delivery Mode Nasal Cannula O2 (L/minute) 2.5 Allergies/Adverse Reactions: latex Allergy (Verified 01/20/19 20:06) Home Medications: Medication Instructions Recorded Aspirin [Aspirin 81mg (*)] 81 mg PO DAILY 08/07/16 Carbidopa/Levodopa 25/100Mg 2 tab PO QID 08/07/16 [Sinemet 25/100 MG (*)] DULoxetine [Cymbalta 60 MG (*)] 60 mg PO BID 08/07/16 Fenofibrate [Tricor] 48 mg PO DAILY 08/07/16 Insulin Glargine [Lantus 100 40 units SC BIDMEAL 08/07/16 UNITS/ML] MILNACIPRAN HCL [Savella 50 mg] 75 mg PO BID 08/07/16 Metoprolol Tartrate [Lopressor 25 12.5 mg PO DAILY 08/07/16 mg (*)] Omeprazole 20 mg PO BID 08/07/16 sitaGLIPtin PHOSPHATE [Januvia 100 100 mg PO DAILY 08/07/16 MG (*)] Acetaminophen [Tylenol 325mg (*)] 650 mg PO Q6HRS PRN 09/21/17 Atorvastatin Calcium [Lipitor 40 40 mg PO DAILY 09/21/17 mg (*)] Cholecalciferol Vit D3 [Vitamin D3 50,000 unit PO Q30D 09/21/17 (*)] Fluticasone Nasal [Flonase Nasal 1 sprays NASAL HS 09/21/17 [place]] SUMAtriptan [Imitrex 50 MG (*)] 50 mg PO Q2H PRN MDD 100mg 09/21/17 Albuterol [Proventil Inhaler HFA 1 puffs IH Q4H PRN 01/26/18 (*)] Magnesium Oxide [Magnesium Oxide 400 mg PO BID PRN 01/26/18 400 mg (*)] Nystatin Powder [Mycostatin Powder] 1 leandra TP BID 01/26/18 Cetirizine [ZyrTEC 10 mg (*)] 10 mg PO DAILY tab 01/31/18 Insulin NPH Human Isophane 10 unit SQ BIDMEAL 12/29/18 [Novolin N] Melatonin [Melatonin 3 MG (*)] 3 mg PO HS@20 12/29/18 Multivitamins W-Minerals [Thera M 1 each PO DAILY 12/29/18 Plus Tablet (*)] Oxybutynin Chloride [Ditropan Xl] 10 mg PO DAILY 12/29/18 diphenhydrAMINE [Benadryl 25 MG 25 mg PO DAILY 12/29/18 (*)] Apixaban [Eliquis] 5 mg PO BID 30 Days #60 tab 12/30/18 Bisacodyl [Dulcolax] 10 mg RC DAILY 01/21/19 Diclofenac Sodium 1% [Voltaren Gel 4 g TP QID 01/21/19 (*)] Gabapentin 1,200 mg PO BID 01/21/19 Nystatin [Mycostatin Oint (RX)] 1 leandra TP BID PRN 01/21/19 cycloSPORINE 0.05% [Restasis Opht 2 drop EACHEYE BID 01/21/19 Drops(*)] guaiFENesin [Mucinex 600 MG (*)] 600 mg PO BID 01/21/19 oxyCODONE HCL/ACETAMINOPHEN 1 each PO TID 01/21/19 [Percocet 10-325 mg Tablet] Laboratory Results: Laboratory Results 01/20/19 20:15 01/21/19 04:40 01/21/19 01/21/19 08:33 07:54 POC Glucose 95 mg/dL mg/dL 69 mg/dL L mg/dL (70-100) (70-100) Medications Given: Apixaban (Eliquis) 5 mg PO BID [facility] Stop: 07/20/19 09:59 Last Admin: 01/21/19 12:00 Dose: 5 mg Aspirin (Aspirin) 81 mg PO DAILY [facility] Stop: 07/20/19 09:59 Last Admin: 01/21/19 11:59 Dose: 81 mg Atorvastatin Calcium (Lipitor) 40 mg PO DAILY [facility] Stop: 07/20/19 09:59 Last Admin: 01/21/19 11:58 Dose: 40 mg Carbidopa/Levodopa (Sinemet) 2 tab PO QID [facility] Stop: 07/20/19 11:59 Last Admin: 01/21/19 16:43 Dose: 2 tab Diclofenac Sodium (Diclofenac Sodium 1% Gel) 4 gm TP QID [facility] Stop: 07/20/19 11:59 Last Admin: 01/21/19 16:43 Dose: 4 gm Gabapentin (Neurontin) 1,200 mg PO BID [facility] Stop: 07/20/19 10:29 Last Admin: 01/21/19 14:12 Dose: Not Given Insulin Human Lispro (Humalog Lispro) 0 unit SC ACHS [facility] PRN Reason: Protocol Stop: 07/20/19 11:29 Last Admin: 01/21/19 18:18 Dose: 1 unit Metoprolol Tartrate (Lopressor) 12.5 mg PO DAILY [facility] Stop: 07/20/19 09:59 Last Admin: 01/21/19 12:07 Dose: 12.5 mg Ondansetron HCl (Zofran Odt) 4 mg PO Q4HRS PRN PRN Reason: Nausea/Vomiting, Use 1st Stop: 07/20/19 00:58 Last Admin: 01/21/19 18:18 Dose: 4 mg Pantoprazole Sodium (Protonix) 40 mg PO BID [facility] Stop: 07/20/19 10:29 Last Admin: 01/21/19 11:59 Dose: 40 mg Sitagliptin Phosphate (Januvia) 100 mg PO DAILY [facility] Stop: 07/20/19 09:59 Last Admin: 01/21/19 11:59 Dose: 100 mg Discontinued Medications Apixaban (Eliquis) 10 mg PO EDNOW ONE Stop: 01/20/19 21:29 Last Admin: 01/20/19 21:33 Dose: 10 mg Sodium Chloride (Ns) 1,000 mls @ 0 mls/hr IV EDNOW ONE; [facility] [place] PRN Reason: Protocol Stop: 01/20/19 20:16 Last Admin: 01/20/19 20:49 Dose: 1,000 mls Sodium Chloride (Ns) 1,000 mls @ 100 mls/hr IV CONT [facility] Stop: 01/21/19 10:59 Last Admin: 01/21/19 01:30 Dose: 1,000 mls Insulin Glargine (Lantus Syringe) 40 units SC BID [facility] Stop: 07/20/19 08:59 Last Admin: 01/21/19 13:31 Dose: Not Given Insulin Human NPH (Humulin N Syringe) 10 units SC BIDAC [facility] Stop: 07/20/19 07:29 Last Admin: 01/21/19 13:31 Dose: Not Given Ondansetron HCl (Zofran) 4 mg IVP EDNOW ONE Stop: 01/20/19 20:16 Last Admin: 01/20/19 20:49 Dose: 4 mg Point of Care Test Results: Chemistry 01/21/19 01/21/19 01/20/19 08:33 07:54 21:48 POC Sodium 134 mEq/L L mEq/L (135-145) POC Potassium 8.2 mEq/L H* mEq/L (3.3-5.0) POC Chloride 101 mEq/L mEq/L (97-110) POC Total CO2 30 mEq/L mEq/L (22-31) POC BUN 46 mg/dL H mg/dL (7-23) POC Creatinine 1.0 mg/dL mg/dL (0.6-1.0) POC Glucose 95 mg/dL mg/dL 69 mg/dL L mg/dL 248 mg/dL H mg/dL (70-100) (70-100) (70-100) POC Troponin I 01/20/19 20:47 POC Sodium POC Potassium POC Chloride POC Total CO2 POC BUN POC Creatinine POC Glucose POC Troponin I 0.01 ng/mL ng/mL (0.00-0.08) ISTAT H&H 01/20/19 21:48 POC Hgb 15.3 gm/dL gm/dL (12.6-16.3) POC Hct 45 % % (38-47) Departure - Departure Disposition: [facility]patient Acute Clinical Impression: Nausea & vomiting Qualifiers: Vomiting type: unspecified Vomiting Intractability: non-intractable Qualified Code(s): R11.2 - Nausea with vomiting, unspecified Abdominal pain Qualifiers: Abdominal location: generalized Qualified Code(s): R10.84 - Generalized abdominal pain Condition: Fair
[2019-01-20] MEDS ORDERED: ONDANSETRON 4 MG/2 ML VIAL IVP ONE (20:15)
[2019-01-20] MEDS ORDERED: NS 1,000 ML IV ONE (20:15)
[2019-01-20 21:01] LABS: PLATELET COUNT 293 10^3/uL (150-400)
[2019-01-20] MEDS ORDERED: APIXABAN 5 MG TAB PO ONE (21:28)
[2019-01-20] MEDS ORDERED: IOPAMIDOL (ISOVUE-300) 100 ML BTL ONE (22:29)
--- NOTE | 2019-01-20 22:32 | CPEKG ---
Test Reason : OPEN Blood Pressure : / mmHG Vent. Rate : 082 BPM Atrial Rate : 082 BPM P-R Int : 131 ms QRS Dur : 080 ms QT Int : 478 ms P-R-T Axes : 073 047 086 degrees QTc Int : 559 ms Sinus rhythm Nonspecific T abnrm, anterolateral leads Prolonged QT interval Confirmed by Jacey Castro ([id number]) on 01/20/2019 10:32:01 PM Referred By: Jacey Castro Confirmed By:Jacey Castro
[2019-01-21] MEDS ORDERED: ONDANSETRON 4 MG/2 ML VIAL IVP PRN (00:59)
[2019-01-21] MEDS ORDERED: PROMETHAZINE HCL 25 MG/ML INJ IVP PRN (00:59)
[2019-01-21] MEDS ORDERED: NS 1,000 ML IV SCH (01:00)
[2019-01-21] MEDS: ONDANSETRON DISINTEGRATING 4 MG TAB PO PRN ×3 (01:34→18:18)
--- NOTE | 2019-01-21 04:41 | PDGENHP ---
History and Physical - Chief Complaint Nausea vomiting and acute on chronic pain. - History of Present Illness Source-patient provides history is fair historian EMR was reviewed and case discussed with ED provider. HPI - this is a 63-year-old female with past medical history significant for CAD status post stenting in the LAD, PE on Eliquis, fibromyalgia, Parkinson's, morbid obesity BMI 50.6, insulin-dependent DM 2, chronic hypoxia, depression, DIONISIO, IBS, migraines, GERD who presents emergency department today with complaints of acute on chronic diffuse generalized pains. Patient also notes she has been experiencing nausea vomiting without any diarrhea. Denies any hematemesis. No fevers however patient has been reporting some chills. Patient notes that she recently began seeing with a new pain specialist single dose. She reports that her Dilaudid which she has been taking frequently during the day had been cut back to Percocet 10 mg tab several times daily. She developed significant nausea vomiting was unable to tolerate any solid or liquid intake. No reported diarrhea. Patient recently discharged on 12/2018 diagnosis PE through she sent home with 30 day supply of Eliquis. Patient reports she has been unable to tolerate any solids or liquids her last several days. History Information - Allergies/Home Medication List Allergies/Adverse Reactions: latex Allergy (Verified 01/20/19 20:06) Home Medications: Aspirin [Aspirin 81mg (*)] 81 mg PO DAILY 08/07/16 [Last Taken 01/26/18] Carbidopa/Levodopa 25/100Mg [Sinemet 25/100 MG (*)] 2 tab PO QID 08/07/16 [Last Taken 01/26/18 09:00] DULoxetine [Cymbalta 60 MG (*)] 60 mg PO BID 08/07/16 [Last Taken 01/26/18] Fenofibrate [Tricor] 48 mg PO DAILY 08/07/16 [Last Taken 01/26/18] Gabapentin [Neurontin 400 MG (*)] 1,200 mg PO BID@08/07/16 [Last Taken ] Insulin Glargine [Lantus 100 UNITS/ML] 40 units SC BID 08/07/16 [Last Taken ] MILNACIPRAN HCL [Savella 50 mg] 75 mg PO BID 08/07/16 [Last Taken 01/26/18] Metoprolol Tartrate [Lopressor 25 mg (*)] 12.5 mg PO DAILY 08/07/16 [Last Taken 01/26/18] Omeprazole 20 mg PO BID 08/07/16 [Last Taken 01/26/18] sitaGLIPtin PHOSPHATE [Januvia 100 MG (*)] 100 mg PO DAILY 08/07/16 [Last Taken 01/26/18] Acetaminophen [Tylenol 325mg (*)] 650 mg PO Q6HRS PRN 09/21/17 [Last Taken 09/17] Atorvastatin Calcium [Lipitor 40 mg (*)] 40 mg PO DAILY 09/21/17 [Last Taken ] Cholecalciferol Vit D3 [Vitamin D3 (*)] 50,000 unit PO Q30D 09/21/17 [Last Taken 01/06/18] Fluticasone Nasal [Flonase Nasal [place]] 2 sprays NASAL HS 09/21/17 [Last Taken 01/25/18] Nystatin [Mycostatin Cream (RX)] 1 leandra TP DAILY PRN 09/21/17 [Last Taken ] SUMAtriptan [Imitrex 50 MG (*)] 50 mg PO Q2H PRN 09/21/17 [Last Taken 01/20/18] Albuterol [Proventil Inhaler HFA (*)] 1 puffs IH Q4H PRN 01/26/18 [Last Taken Unknown] Magnesium Oxide [Magnesium Oxide 400 mg (*)] 400 mg PO BID PRN 01/26/18 [Last Taken Unknown] Nystatin Powder [Mycostatin Powder] 1 leandra TP DAILY PRN 01/26/18 [Last Taken Unknown] HYDROmorphone HCL [Dilaudid 4 mg (*)] 4 mg PO Q8HRS PRN 12/29/18 [Last Taken Unknown] Insulin NPH Human Isophane [Novolin N] 10 unit SQ BID 12/29/18 [Last Taken Unknown] Lidocaine [Lidoderm] 1 each TP DAILY 12/29/18 [Last Taken Unknown] Melatonin [Melatonin 3 MG (*)] 3 mg PO HS 12/29/18 [Last Taken Unknown] Multivitamins W-Minerals [Thera M Plus Tablet (*)] 1 each PO DAILY 12/29/18 [ Last Taken Unknown] Oxybutynin Chloride [Ditropan Xl] 10 mg PO DAILY 12/29/18 [Last Taken Unknown] cycloSPORINE 0.05% [Restasis Opht Drops(*)] 1 drop EACHEYE BID 12/29/18 [Last Taken Unknown] diphenhydrAMINE [Benadryl 25 MG (*)] 25 mg PO DAILY 12/29/18 [Last Taken Unknown ] fentaNYL [Duragesic 12 MCG Patch (*)] 12 mcg TD Q72H 12/29/18 [Last Taken Unknown] guaiFENesin [Mucinex 600 MG (*)] 600 mg PO BID 12/29/18 [Last Taken Unknown] I have personally reviewed and updated: family history, medical history, social history, surgical history - Past Medical History Additional medical history: morbid obesity (BMI > 50), insulin dependent diabetes, chronic pain with continuous opioid use, PE (she thinks prior to 2009 and again 12/2018 for which patient was hospitalized), Parkinson's, CAD with LAD stent in 1999, DIONISIO, HTN, HLD, depression, RAD, migraine headaches, IBS , chronic oxygen dependence (2.5L) - Surgical History Additional surgical history: jeison. - Family History Positive for: non-pertinent - Social History Smoking Status: Never smoked Additional social history: Lives in assisted living at [facility]. COR - per most form. DNR/DNI but desires basic treatment. Review of Systems Review of Systems: ROS: 10pt was reviewed & negative except for what was stated in HPI & below Physical Exam Physical Exam: Selected Entries 01/20/19 20:06 Blood Pressure Automatic Method Heart Rate 93 Respiratory 18 Rate O2 Sat (%) 94 Temperature (C) 36.8 C Blood Pressure 160/95 H Mean Arterial 116 H Pressure (MAP) O2 Delivery Room Air Mode Temperature Oral Source Temp Pulse Resp BP Pulse Ox 36.6 C 83 18 130/81 H 97 01/21/19 03:08 01/21/19 03:08 01/21/19 03:08 01/21/19 03:08 01/21/19 03:08 O2 (L/minute) 2 Constitutional: no apparent distress, chronically ill appearing, obese, other ( Patient lays in bed asleep. She does appear little flushed but she is wearing a sleep mask and does not remove the for the visit. She does fall asleep multiple times during the interview.) Eyes: other (Unable to assess due to patient wearing her sleep mask during the interview.) Ears, Nose, Mouth, Throat: dry mucous membranes, other (No nasal discharge.), No poor dentition Cardiovascular: regular rate and rhythym, no murmur, rub, or gallop, pulses symmetric bilaterally, edema (2+ pitting edema bilateral lower extremities.), other (Distant heart sounds due to body habitus limiting exam.) Peripheral Pulses: 1+: dorsalis-pedis (R), dorsalis-pedis (L) Respiratory: no respiratory distress, no rales or rhonchi, clear to auscultation , reduced air movement, other (Significantly decreased inspiratory effort and decreased air movement appreciated. Otherwise clear lung sounds.) Gastrointestinal: normoactive bowel sounds, soft, non-tender abdomen, no palpable masses, other (Obese abdomen.), No distension Genitourinary: no bladder tenderness, zarco in urethra Skin: warm, normal color, no rashes or abrasions Musculoskeletal: generalized weakness, other (Patient grimaces with any movement of her extremities.) Neurologic: AAOx3, sensation intact bilaterally (Majority of the interview patient is able to answer questions but however she does fall asleep over the course of the interview.), facial droop Psychiatric: thought process linear, flat affect, No not encephalopathic Lab Data & Imaging Review 01/20/19 20:15 01/21/19 04:40 WBC 15.85 10^3/uL (3.80-9.50) H 01/20/19 20:15 RBC 4.95 10^6/uL (4.18-5.33) 01/20/19 20:15 Hgb 14.1 g/dL (12.6-16.3) 01/20/19 20:15 POC Hgb 15.3 gm/dL (12.6-16.3) 01/20/19 21:48 Hct 43.8 % (38.0-47.0) 01/20/19 20:15 POC Hct 45 % (38-47) 01/20/19 21:48 MCV 88.5 fL (81.5-99.8) 01/20/19 20:15 MCH 28.5 pg (27.9-34.1) 01/20/19 20:15 MCHC 32.2 g/dL (32.4-36.7) L 01/20/19 20:15 RDW 13.7 % (11.5-15.2) 01/20/19 20:15 Plt Count 293 10^3/uL (150-400) 01/20/19 20:15 MPV 10.6 fL (8.7-11.7) 01/20/19 20:15 Neut % (Auto) 66.0 % (39.3-74.2) 01/20/19 20:15 Lymph % (Auto) 25.2 % (15.0-45.0) 01/20/19 20:15 [place] % (Auto) 6.7 % (4.5-13.0) 01/20/19 20:15 Eos % (Auto) 1.3 % (0.6-7.6) 01/20/19 20:15 Baso % (Auto) 0.5 % (0.3-1.7) 01/20/19 20:15 Nucleat RBC Rel Count 0.0 % (0.0-0.2) 01/20/19 20:15 Absolute Neuts (auto) 10.45 10^3/uL (1.70-6.50) H 01/20/19 20:15 Absolute Lymphs (auto) 4.00 10^3/uL (1.00-3.00) H 01/20/19 20:15 Absolute Monos (auto) 1.06 10^3/uL (0.30-0.80) H 01/20/19 20:15 Absolute Eos (auto) 0.21 10^3/uL (0.03-0.40) 01/20/19 20:15 Absolute Basos (auto) 0.08 10^3/uL (0.02-0.10) 01/20/19 20:15 Absolute Nucleated RBC 0.00 10^3/uL (0-0.01) 01/20/19 20:15 Immature Gran % 0.3 % (0.0-1.1) 01/20/19 20:15 Immature Gran # 0.05 10^3/uL (0.00-0.10) 01/20/19 20:15 VBG pH 7.44 (7.31-7.42) H 01/20/19 21:20 POC Sodium 134 mEq/L (135-145) L 01/20/19 21:48 Sodium 135 mEq/L (135-145) 01/20/19 21:20 POC Potassium 8.2 mEq/L (3.3-5.0) H* 01/20/19 21:48 Potassium 3.7 mEq/L (3.5-5.2) 01/20/19 21:20 POC Chloride 101 mEq/L (97-110) 01/20/19 21:48 Chloride 99 mEq/L (97-110) 01/20/19 21:20 Carbon Dioxide 27 mEq/l (22-31) 01/20/19 21:20 POC Total CO2 30 mEq/L (22-31) 01/20/19 21:48 Anion Gap 9 mEq/L (6-14) 01/20/19 21:20 POC BUN 46 mg/dL (7-23) H 01/20/19 21:48 BUN 31 mg/dL (7-23) H 01/20/19 21:20 Creatinine 0.9 mg/dL (0.6-1.0) 01/20/19 21:20 POC Creatinine 1.0 mg/dL (0.6-1.0) 01/20/19 21:48 Estimated GFR > 60 01/20/19 21:20 Glucose 225 mg/dL (70-100) H 01/20/19 21:20 POC Glucose 248 mg/dL (70-100) H 01/20/19 21:48 Calcium 9.2 mg/dL (8.5-10.4) 01/20/19 21:20 Total Bilirubin 0.4 mg/dL (0.1-1.4) 01/20/19 21:20 Conjugated Bilirubin 0.2 mg/dL (0.0-0.5) 01/20/19 21:20 Unconjugated Bilirubin 0.2 mg/dL (0.0-1.1) 01/20/19 21:20 AST 32 IU/L (14-46) 01/20/19 21:20 ALT 36 IU/L (9-52) 01/20/19 21:20 Alkaline Phosphatase 102 IU/L (38-126) 01/20/19 21:20 POC Troponin I 0.01 ng/mL (0.00-0.08) 01/20/19 20:47 Total Protein 6.0 g/dL (6.3-8.2) L 01/20/19 21:20 Albumin 3.4 g/dL (3.5-5.0) L 01/20/19 21:20 Lipase 29 IU/L (23-300) 01/20/19 21:20 Imaging Review: CT Scan of the Abdomen and Pelvis (With Contrast) 2244 hours History: Abdominal pain. Nausea and vomiting. Previous cholecystectomy. Technique: Axial computed tomographic images of the abdomen and pelvis were obtained with the uneventful intravenous administration of 90 mL Isovue-300 contrast. Oral contrast was also administered. Images were reviewed in multiple planes. Dose reduction techniques were utilized. CT Abdomen and Pelvis Findings: Comparison to previous study from 08/28/2014. Lung bases: Normal. Liver: There is mild hepatic steatosis similar to the prior study. Spleen: Normal. Gallbladder and Bile Ducts: Previous cholecystectomy. No biliary ductal dilatation. Pancreas: Fatty infiltration of the pancreas is noted. No pancreatic ductal dilatation. Adrenals: Normal. Kidneys: No obstruction or solid masses. Abdominal Aorta: There is mild atherosclerotic calcification of the abdominal aorta and pelvic branches without aneurysm. Pelvic structures: The uterus has a normal contour. No adnexal masses are seen. Bladder: Decompressed but otherwise normal. Appendix: Normal. Bowel Loops: Normal. No bowel obstruction, ascites, or significant retroperitoneal lymphadenopathy. Skeletal system: Vertebral body heights are well-maintained. There are no significant lytic or sclerotic osseous lesions. Hypertrophic calcifications are seen along the anterior and right lateral aspect of mid to lower thoracic spine vertebral body segments compatible with underlying diffuse idiopathic skeletal hyperostosis (DISH). Impression: 1. Stable mild to moderate hepatic steatosis. 2. No CT evidence of appendicitis, abscess or bowel obstruction. Findings discussed with Alesia Bailey M.D. at 23:06 hour, 01/20/2019. Dictated By: Daniel Sainz MD EKG additional interpertation: NSR in the 80s. T-wave flattening/T-wave inversion in the anterolateral leads. Cor status DNR DNI per most form. Assessment & Plan Assessment: 63-year-old female with past medical history significant for CAD status post stenting in the LAD, PE on Eliquis, fibromyalgia, Parkinson's, morbid obesity BMI 50.6, insulin-dependent DM 2, chronic hypoxia, depression, DIONISIO, IBS, migraines, GERD who presents emergency department today with complaints of acute on chronic diffuse generalized pains. #Abdominal pain (Acute) - no evidence of acute process on imaging. Patient may be experiencing abdominal pain related to active nausea vomiting which now been controlled S patient describes predominantly epigastric type tenderness to palpation the low bit left lower quadrant. No evidence of active diverticulitis. Cause of patient's symptoms may be related to of viral etiology versus potentially the change in her narcotic therapy recently. Will not escalate her opiate plan at this time. Additional clarification on her Percocet regimen is needed. Currently patient is sleeping and without complaints of her chronic pain. Patient has not had any bowel movement in some time she can't recall. Bowel program will be ordered. # intractable Nausea & vomiting (Acute) - improved after Zofran. Continue p.r.n.. #dehydration - IVF supplementation. advance diet as tolerated #leukocytosis - likely reactive in setting of intractable nausea/vomiting and dehydration. patient afebrile. chronic medical issues #PE - resume Eliquis #IDDM II -resume patient's glargine and NPH. Low-dose sliding scale at HS. Hypoglycemia protocol in place. ADA diet has #parksinson's - resume patient's Sinemet #CAD with stent - continue aspirin and statin #DIONISIO - supplemental O2 at HS #IBS - bowel protocol. #migraine CEDENO - stable at this time. Sumatriptan p.r.n. #GERD - resume PPI per formulary #depression with anxiety disorder - continue Savella #fibroM - see plan for pain management as noted above. continue gabapentin. tylenol prn. #morbid obesity (BMI 50.6) mobilize as tolerated. #urinary incontinence - no chronic zarco. pt reports dysuria. FEN - IVF. electrolyte discrepancy in EMR 2/2 hemolyzed sample with elevated K+ . repeat WNL. advance diet as tolerated. encourage po hydration. PPX - eliquis restarted. COR - DNR/DNI per most form. Dispo - Patient admitted to observation status on med/surg floor for control of nausea/vomiting and IV hydration.
[2019-01-21] MEDS ORDERED: D50W 25 GM/50 ML SYR IVP PRN (06:54)
[2019-01-21] MEDS ORDERED: INSULIN NPH HUMAN 100 UNITS/ML SYR SC SCH (07:30)
[2019-01-21] MEDS ORDERED: INSULIN GLARGINE 100 UNITS/ML UNIT SC SCH (09:00)
[2019-01-21] MEDS ORDERED: NYSTATIN 15 GM OINTMENT TP PRN (09:56)
[2019-01-21] MEDS ORDERED: ALBUTEROL 60 PUFFS/8 GM MDI IH PRN (09:56)
[2019-01-21] MEDS ORDERED: MAGNESIUM OXIDE 400 MG TAB PO PRN (09:56)
--- NOTE | 2019-01-21 11:08 | ASMTCMCOM ---
CM Note CM Note Notes: CM reviewed chart and spoke with RN. Patient lives at [facility] and will return when medically stable. CM available for any changes. Plan: [facility] Date Signed: 01/21/2019 11:08 AM Electronically Signed By:Supriya Rose
--- NOTE | 2019-01-21 11:37 | HOSPPROG ---
Hospitalist Progress Note Assessment/Plan: Intractable Nausea and vomiting, improved Abdominal pain, improved Acute dehydration, resolved Ddx etiology - viral gastritis, withdrawal from not being able to take scheduled meds, IBS flare Acute on chronic pain Fibromyalgia CAD s/p stent Recent PE, on Eliquis Chronic hypoxia Parkinson disease Morbid obesity Probably obesity hypoventilation syndrome IDDM IBS Migraines GERD Depression/anxiety Urinary incontinence -Continue home meds, but hold one of the Lantus doses since she is not consuming much food. -ADAT. -Continue prn antiemetics. -Discussed that it is not good to stop some of the meds suddenly, such as gabapentin and duloxetine. Pt feels she takes too many medications. DC'd Benadryl, which she does not appear to need. -Pt dislikes her SNF and wants to move to a different one. D/w CM. -Code status - DNR. -VTE ppx - Eliquis. Objective: Vital Signs Temp Pulse Resp BP Pulse Ox 36.7 C 74 16 130/81 H 100 01/21/19 07:52 01/21/19 07:52 01/21/19 07:52 01/21/19 07:52 01/21/19 07:52 Laboratory Results 01/21/19 04:40 01/20/19 01/21/19 01/22/19 05:59 05:59 05:59 Intake Total 1240 Balance 1240 - Time Spent With Patient Time Spent with Patient: greater than 35 minutes Time Spent with Patient: Greater than 35 minutes spent on this patients care, greater than 50% of time spent counseling, educating, and coordinating care regarding the above mentioned plan. ICD10 Worksheet Patient Problems: Problems Problem Status Onset Abdominal pain Acute Nausea & vomiting Acute Acute bronchitis Acute Ankle sprain Acute Chest pain Acute Exacerbation of asthma Acute Fracture of left distal radius Acute Head injury Acute Multiple contusions Acute Periorbital hematoma of right eye Acute Pulmonary embolism Acute
[2019-01-21] MEDS: ATORVASTATIN CALCIUM 40 MG TAB PO SCH (11:58)
[2019-01-21] MEDS: PANTOPRAZOLE SODIUM 40 MG TAB PO SCH ×2 (11:59→21:07)
[2019-01-21] MEDS: ASPIRIN 81 MG CHEWABLE TAB PO SCH (11:59)
[2019-01-21] MEDS: GABAPENTIN 400 MG CAP PO SCH ×3 (12:00→21:05)
[2019-01-21] MEDS: APIXABAN 5 MG TAB PO SCH ×2 (12:00→21:02)
[2019-01-21] MEDS ORDERED: CARBIDOPA/LEVO CR 50 MG/200 MG TAB PO SCH (12:00)
[2019-01-21] MEDS: METOPROLOL TARTRATE 25 MG TAB PO SCH (12:07)
[2019-01-21] MEDS: INSULIN LISPRO 100 UNIT/ML SC SCH ×3 (14:03→21:05)
[2019-01-21] MEDS: CARBIDOPA/LEVODOPA 25 MG/100 MG TAB PO SCH ×3 (14:04→21:03)
[2019-01-21] MEDS: DICLOFENAC SODIUM 1% 100 GM GEL TP SCH ×3 (16:28→21:04)
[2019-01-21] MEDS ORDERED: INSULIN LISPRO 100 UNIT/ML SC SCH (21:00)
[2019-01-21] MEDS: DULoxetine 60 MG CAP PO SCH (21:02)
[2019-01-21] MEDS: MELATONIN 3 MG TAB PO SCH (21:02)
[2019-01-21] MEDS: NYSTATIN POWDER 15 GM BTL TP SCH (21:06)
[2019-01-21] MEDS: [UNRECOGNIZED DRUG - OTHER] PO SCH (21:06)
[2019-01-21] MEDS: cycloSPORINE 0.05% 30 DROPERETTE/BOX EACHEYE SCH (21:10)
[2019-01-22 05:01] LABS: PLATELET COUNT 229 10^3/uL (150-400)
[2019-01-22] MEDS: DICLOFENAC SODIUM 1% 100 GM GEL TP SCH ×4 (05:13→20:40)
[2019-01-22] MEDS: CARBIDOPA/LEVODOPA 25 MG/100 MG TAB PO SCH ×4 (05:14→20:16)
[2019-01-22] MEDS: ACETAMINOPHEN 325 MG TAB PO PRN ×4 (05:30→20:17)
[2019-01-22] MEDS: ONDANSETRON DISINTEGRATING 4 MG TAB PO PRN (08:23)
[2019-01-22] MEDS: PANTOPRAZOLE SODIUM 40 MG TAB PO SCH ×2 (08:23→20:16)
[2019-01-22] MEDS: INSULIN LISPRO 100 UNIT/ML SC SCH ×5 (08:24→22:44)
[2019-01-22] MEDS ORDERED: SUMAtriptan 50 MG TAB PO PRN (08:32)
[2019-01-22] MEDS ORDERED: diphenhydrAMINE 25 MG CAP PO SCH (09:00)
--- NOTE | 2019-01-22 10:03 | PDMN ---
Medical Necessity Medical necessity: MCG M05 Abd Pain, Undiagnosed, A-1 day: 63 yo w/ acute abd pain, n/v, unlear etiology - viral gastritis vs. w/d from meds since she was unable to mack PO vs. IBS flare. Initially OBS for workup/tx but pt requires additional MN for ongoing supportive tx w/ aniemetics. Pt still not consuming much food. Medication management/education needed. PT/OT evals ordered. Psych nursing support as pt with sig depression. Change to IP status 01/21/19@ 1138 per MD order. HX morbid obesity (BMI > 50), insulin dependent diabetes, chronic pain with continuous opioid use, PE (she thinks prior to 2009 and again 12/2018 for which patient was hospitalized), Parkinson's, CAD with LAD stent in 1999, DIONISIO, HTN, HLD, depression, RAD, migraine headaches, IBS, chronic oxygen dependence (2.5L)
[2019-01-22] MEDS: GABAPENTIN 400 MG CAP PO SCH ×2 (10:28→20:16)
[2019-01-22] MEDS: APIXABAN 5 MG TAB PO SCH ×2 (10:29→20:16)
[2019-01-22] MEDS: DULoxetine 60 MG CAP PO SCH ×2 (10:30→20:16)
[2019-01-22] MEDS: OXYBUTYNIN 5 MG EXT REL TAB PO SCH (10:32)
[2019-01-22] MEDS: METOPROLOL TARTRATE 25 MG TAB PO SCH (10:34)
[2019-01-22] MEDS: cycloSPORINE 0.05% 30 DROPERETTE/BOX EACHEYE SCH ×2 (10:52→20:31)
[2019-01-22] MEDS: ATORVASTATIN CALCIUM 40 MG TAB PO SCH (11:42)
[2019-01-22] MEDS: CETIRIZINE 10 MG TAB PO SCH (11:42)
[2019-01-22] MEDS: ASPIRIN 81 MG CHEWABLE TAB PO SCH (11:42)
[2019-01-22] MEDS: MULTIVITAMINS W-MINERALS 1 EACH TAB PO SCH (11:43)
[2019-01-22] MEDS: [UNRECOGNIZED DRUG - OTHER] PO SCH ×2 (11:43→20:40)
[2019-01-22] MEDS: FENOFIBRATE 48 MG TAB PO SCH (11:43)
--- NOTE | 2019-01-22 13:26 | ASMTCMCOM ---
CM Note CM Note Notes: CM met with patient and Dr. Obrien, patient shares she really does not feel comfortable at [facility]. She states she did refuse her medications at [facility] as she did not feel she had any control over her care. She shares she wanted to come to the hospital for the vomiting and pain & wanted the doctor to send her, when they didn't she called 911 herself. She states she is interested in [facility] & has started working with her social service technician and spoke with the cassandra last . PT/OT ordered, pending recommendations. CM called [facility] and spoke with Sara, . The patient is welcome back when medically stable. Vitaly with [facility] stopped by and visited with the patient, we can send SNF referral if recommended by PT/OT. He will check with the LTC Sql Report Analyst to see if she if she is on the wait list and explained to the patient there is a process to transferring LTC facilities. CM to follow. D/C Plan: Return to [facility] (LTC or SNF) vs [facility] Date Signed: 01/22/2019 01:25 PM Electronically Signed By:Nadine Jaramillo
[2019-01-22] MEDS: guaiFENesin 600 MG TAB.ER PO SCH ×2 (14:16→20:16)
[2019-01-22] MEDS: NYSTATIN POWDER 15 GM BTL TP SCH ×2 (15:27→21:19)
--- NOTE | 2019-01-22 16:03 | HOSPPROG ---
Hospitalist Progress Note Assessment/Plan: Intractable Nausea and vomiting, improved Abdominal pain, improved Acute dehydration, resolved Ddx etiology - viral gastritis, withdrawal from not being able to take scheduled meds, IBS flare Acute on chronic pain Fibromyalgia CAD s/p stent Recent PE, on Eliquis Chronic hypoxia Parkinson disease Morbid obesity Probably obesity hypoventilation syndrome IDDM IBS Migraines GERD Depression/anxiety Urinary incontinence Dental pain -Continue home meds, but held one of the Lantus doses since she is not consuming much food. -Continue prn antiemetics. -Discussed that it is not good to stop some of the meds suddenly, such as gabapentin and duloxetine. Pt feels she takes too many medications. -Pt dislikes her SNF and wants to move to a different one. D/w CM. -Explained to pt that for dental pain, she should FU w/ outpt dentist. She has been seeing one in the past for the current issue. [place] prn pain in hospital. -Code status - DNR. -VTE ppx - Eliquis. DISPO: pending placement. Objective: Vital Signs General: The patient is a morbidly obese female who is alert and in no acute distress. HEENT: normocephalic, extraocular movements intact, conjunctivae clear, no lesions on face. Mucous membranes moist. Poor dentition noted. Neck: trachea midline, no visible masses, no external lesions. Abd: soft and nondistended. Musculoskeletal: Normal muscle tone/bulk. Neuro: cranial nerves II - XII grossly intact. Intact gross motor and sensory function. Psych: Anxious mood/appropriate affect. Skin: No pallor. Temp Pulse Resp BP Pulse Ox 36.8 C 87 16 138/87 H 86 L 01/22/19 15:37 01/22/19 15:37 01/22/19 15:37 01/22/19 15:37 01/22/19 15:37 Laboratory Results 01/22/19 04:12 01/22/19 04:12 01/21/19 01/22/19 01/23/19 05:59 05:59 05:59 Intake Total 500 500 Output Total 1150 500 Balance -650 0 - Time Spent With Patient Time Spent with Patient: greater than 35 minutes Time Spent with Patient: Greater than 35 minutes spent on this patients care, greater than 50% of time spent counseling, educating, and coordinating care regarding the above mentioned plan. ICD10 Worksheet Patient Problems: Problems Problem Status Onset Abdominal pain Acute Nausea & vomiting Acute Acute bronchitis Acute Ankle sprain Acute Chest pain Acute Exacerbation of asthma Acute Fracture of left distal radius Acute Head injury Acute Multiple contusions Acute Periorbital hematoma of right eye Acute Pulmonary embolism Acute
[2019-01-22] MEDS: MELATONIN 3 MG TAB PO SCH (20:16)
[2019-01-23] MEDS: ACETAMINOPHEN 325 MG TAB PO PRN ×2 (03:33→12:59)
[2019-01-23] MEDS: CARBIDOPA/LEVODOPA 25 MG/100 MG TAB PO SCH ×4 (05:04→20:54)
[2019-01-23] MEDS: DICLOFENAC SODIUM 1% 100 GM GEL TP SCH ×4 (05:05→20:54)
[2019-01-23] MEDS: INSULIN LISPRO 100 UNIT/ML SC SCH ×4 (08:26→20:55)
[2019-01-23] MEDS: GABAPENTIN 400 MG CAP PO SCH ×2 (08:29→20:55)
[2019-01-23] MEDS: FENOFIBRATE 48 MG TAB PO SCH (08:30)
[2019-01-23] MEDS: PANTOPRAZOLE SODIUM 40 MG TAB PO SCH ×2 (08:31→20:56)
[2019-01-23] MEDS: CETIRIZINE 10 MG TAB PO SCH (08:31)
[2019-01-23] MEDS: MULTIVITAMINS W-MINERALS 1 EACH TAB PO SCH (08:31)
[2019-01-23] MEDS: DULoxetine 60 MG CAP PO SCH ×2 (08:31→20:55)
[2019-01-23] MEDS: ATORVASTATIN CALCIUM 40 MG TAB PO SCH (08:31)
[2019-01-23] MEDS: ASPIRIN 81 MG CHEWABLE TAB PO SCH (08:32)
[2019-01-23] MEDS: APIXABAN 5 MG TAB PO SCH ×2 (08:32→20:54)
[2019-01-23] MEDS: LIDOCAINE 4%/MENTHOL 1% PATCH TD SCH (08:33)
[2019-01-23] MEDS: METOPROLOL TARTRATE 25 MG TAB PO SCH (08:33)
[2019-01-23] MEDS: cycloSPORINE 0.05% 30 DROPERETTE/BOX EACHEYE SCH ×2 (08:35→20:54)
[2019-01-23] MEDS: guaiFENesin 600 MG TAB.ER PO SCH ×2 (09:12→20:55)
[2019-01-23] MEDS: [UNRECOGNIZED DRUG - OTHER] PO SCH ×2 (09:13→20:55)
[2019-01-23] MEDS: OXYBUTYNIN 5 MG EXT REL TAB PO SCH (10:17)
[2019-01-23] MEDS: NYSTATIN POWDER 15 GM BTL TP SCH ×2 (10:57→21:20)
--- NOTE | 2019-01-23 12:29 | ASMTCMCOM ---
CM Note CM Note Notes: CORRECTION: Spoke with pt and with Trcay of [facility]. Pt is on waitlist at [facility], not [facility]. [facility] is reviewing info but not convinced they will be able to meet her needs. Referrals sent also to [facility] and [facility] per pt request. Awaiting acceptance. [facility] is willing to take pt back when medically stable. CM to follow. D/C Plan: [facility] if not accepted by other SNF Date Signed: 01/23/2019 12:27 PM Electronically Signed By:Yodit Banegas
--- NOTE | 2019-01-23 13:39 | HOSPPROG ---
Hospitalist Progress Note Assessment/Plan: Abdominal pain with nausea and vomiting - unclear if she had a viral gastroenteritis or w/d from discontinuation of meds, IBS flare. Now improved Volume depletion - improved Chronic pain / fibromyalgia - cont gabapentin CAD s/p stent - cont ASA, statin Recent PE, on Eliquis Parkinson disease - cont Sinemet Chronic hypoxemia - likely some component of OHS Severe obesity DM type 2 - cont Januvia, SSI GERD - PPI Depression/anxiety - Cmbalta Dental pain - outpt f/u with dentist Dispo - cont inpt, likely dc to SNF in am (return to [facility] vs new SNF) Subjective: Pt doing better today. No N/V. She feels weak. Doesn't want to return to [place]. Objective: Vital Signs Temp Pulse Resp BP Pulse Ox 36.9 C 78 16 107/85 H 91 L 01/23/19 11:52 01/23/19 11:52 01/23/19 11:52 01/23/19 11:52 01/23/19 11:52 Laboratory Results 01/22/19 04:12 01/22/19 04:12 01/22/19 01/23/19 01/24/19 05:59 05:59 05:59 Intake Total 500 1000 Output Total 1150 1300 200 Balance -650 -300 -200 - Physical Exam Constitutional: no apparent distress, chronically ill appearing Eyes: PERRL Ears, Nose, Mouth, Throat: moist mucous membranes Cardiovascular: regular rate and rhythym Respiratory: no respiratory distress, clear to auscultation Gastrointestinal: normoactive bowel sounds, soft, non-tender abdomen Skin: warm Musculoskeletal: generalized weakness Neurologic: AAOx3 Psychiatric: interacting appropriately ICD10 Worksheet Patient Problems: Problems Problem Status Onset Abdominal pain Acute Nausea & vomiting Acute Acute bronchitis Acute Ankle sprain Acute Chest pain Acute Exacerbation of asthma Acute Fracture of left distal radius Acute Head injury Acute Multiple contusions Acute Periorbital hematoma of right eye Acute Pulmonary embolism Acute
[2019-01-23] MEDS: HYDROCODONE/APAP 5/325 TAB PO PRN ×2 (14:55→21:22)
--- NOTE | 2019-01-23 15:50 | WOCRNPDOC ---
[facility] Advanced Assessment Note - Skin Integrity Problem, Advanced Assess Gluteal Cleft Dermatitis Exudate Characteristic(s): Serous Wound Bed Color: [place], Red Skin Integrity Problem Comment: Intertriginous dermatitis along gluteal cleft from distal sacrum to anus. Inner most crack open at upper edge and midway towards anus. Sore to scrub per patient and oozing minimally after cleansing. All areas blanching. Discussed with patient and Zhou RN use of calazime cream and importance of off loading to prevent pressure injury. Wound care will sign off.
[2019-01-23] MEDS: MELATONIN 3 MG TAB PO SCH (20:54)
[2019-01-23] MEDS ORDERED: OXYBUTYNIN 5 MG EXT REL TAB PO SCH (21:00)
[2019-01-23] MEDS ORDERED: PATCH REMOVAL 1 EA PATCH TD SCH (21:00)
[2019-01-24] MEDS: ONDANSETRON DISINTEGRATING 4 MG TAB PO PRN (03:59)
[2019-01-24] MEDS: CARBIDOPA/LEVODOPA 25 MG/100 MG TAB PO SCH ×2 (05:25→12:20)
[2019-01-24] MEDS: DICLOFENAC SODIUM 1% 100 GM GEL TP SCH ×2 (05:26→12:20)
[2019-01-24] MEDS: HYDROCODONE/APAP 5/325 TAB PO PRN ×2 (05:40→12:34)
[2019-01-24] MEDS ORDERED: INSULIN GLARGINE 100 UNITS/ML UNIT SC SCH ×2 (08:30→09:00)
[2019-01-24] MEDS ORDERED: RANITIDINE HCL 150 MG/10 ML UDCUP PO SCH (09:00)
[2019-01-24] MEDS: INSULIN LISPRO 100 UNIT/ML SC SCH ×2 (09:07→12:25)
[2019-01-24] MEDS: GABAPENTIN 400 MG CAP PO SCH (09:10)
[2019-01-24] MEDS: DULoxetine 60 MG CAP PO SCH (09:10)
[2019-01-24] MEDS: APIXABAN 5 MG TAB PO SCH (09:11)
[2019-01-24] MEDS: FENOFIBRATE 48 MG TAB PO SCH (09:11)
[2019-01-24] MEDS: PANTOPRAZOLE SODIUM 40 MG TAB PO SCH (09:11)
[2019-01-24] MEDS: MULTIVITAMINS W-MINERALS 1 EACH TAB PO SCH (09:11)
[2019-01-24] MEDS: METOPROLOL TARTRATE 25 MG TAB PO SCH (09:11)
[2019-01-24] MEDS: ASPIRIN 81 MG CHEWABLE TAB PO SCH (09:12)
[2019-01-24] MEDS: ATORVASTATIN CALCIUM 40 MG TAB PO SCH (09:12)
[2019-01-24] MEDS: CETIRIZINE 10 MG TAB PO SCH (09:13)
[2019-01-24] MEDS: LIDOCAINE 4%/MENTHOL 1% PATCH TD SCH (09:13)
[2019-01-24] MEDS: cycloSPORINE 0.05% 30 DROPERETTE/BOX EACHEYE SCH (09:14)
[2019-01-24] MEDS: NYSTATIN POWDER 15 GM BTL TP SCH (09:16)
[2019-01-24] MEDS: [UNRECOGNIZED DRUG - OTHER] PO SCH (09:21)
[2019-01-24] MEDS: guaiFENesin 600 MG TAB.ER PO SCH (09:22)
--- NOTE | 2019-01-24 09:35 | PDIAF ---
- Diagnosis Diagnosis: diabetes, chronic pain Code Status: Do Not Resuscitate - Medication Management Discharge Medications: electronically signed and located in the Home Medication List. PICC Care - Routine: N/A - Orders Services needed: Registered Nurse, Physical Therapy, Occupational Therapy Isolation Type: None Diet Recommendation: ADA 2000 consistent carb - Follow Up Care Current Providers and Referrals: Patient,NotPresent [Unknown] - As per Instructions
--- NOTE | 2019-01-24 09:52 | ASMTLACE ---
DA Length of stay for Answers: 3 days current admission Acuity / Level of Answers: Yes Care: Did the patient have an inpatient admission? Comorbidities - select Answers: Coronary Artery Disease all that apply Diabetes (uncontrolled or controlled) Opioid dependence / Chronic pain # of Emergency department Answers: 1-2 visits in the last 6 months Social determinants Answers: Mental health diagnosis (anxiety, depression, pers onality disorders, etc.) Score: 17 Date Signed: 01/24/2019 09:51 AM Electronically Signed By:Tania Francisco RN
--- NOTE | 2019-01-24 09:58 | ASMTDCNOTE ---
Case Management Discharge Discharge Order Complete? Answers: Yes Patient to Obtain Answers: Other Notes: SNF Medications Transportation Arranged Answers: [facility] Case Management Transport Answers: Yes Form Complete Faxed Final Orders Answers: Yes Family Notified Answers: Yes Discharge Comments Notes: Patient mdically cleared for discharge declines rehab dischareg at this time and elects to return to [place] where her belongings are. CM available should other needs arise. Date Signed: 01/24/2019 09:56 AM Electronically Signed By:Tania Francisco RN
[2019-01-24] MEDS ORDERED: FAMOTIDINE 20 MG TAB PO ONE (10:30)
[2019-01-24] MEDS: ACETAMINOPHEN 325 MG TAB PO PRN (10:38)
[2019-01-24 12:18] VITALS: BP 151/56
--- NOTE | 2019-01-24 14:53 | ASDISCHSUM ---
Discharge Information Plan Status:SNF Medically Cleared to Leave:01/24/2019 Discharge Date:01/24/2019 01:13 PM D/C Disposition:Custodial Facility ADT D/C Disposition:Custodial Facility Projected Discharge Date:01/23/2019 11:00 AM Transportation at D/C:ALS/BLS Discharge Delay Reason: Follow-Up Date:01/23/2019 11:00 AM Discharge Slot: Final Diagnosis:fall, nausea vomiting, pain, dehydration Placement Information Referral Type:*Long Term/SNF Referral ID:[facility]-[id number] Provider Name:[facility] [place] Address 1:[address] Address 2: City:[place] Selection Factors: State:[place] Patient Contact Information Contact Name:RENUKA Relationship:Other Address:[address] City:[place] Alternate Phone: State/Zip Code:[place] [address] Email: Financial Information Financial Class:Medicare Primary Plan Desc:MEDICARE INPATIENT Primary Plan Number:[id number] Secondary Plan Desc:[place] Secondary Plan Number:[id number] Assessment Information [facility] Progress Note CM Note CM Note Notes: CM reviewed chart and spoke with RN. Patient lives at [place] and will return when medically stable. CM available for any changes. Plan: [place] Date Signed: 01/21/2019 11:08 AM Electronically Signed By:Supriya Rose DA DA Length of stay for Answers: 3 days current admission Acuity / Level of Answers: Yes Care: Did the patient have an inpatient admission? Comorbidities - select Answers: Coronary Artery Disease all that apply Diabetes (uncontrolled or controlled) Opioid dependence / Chronic pain # of Emergency department Answers: 1-2 visits in the last 6 months Social determinants Answers: Mental health diagnosis (anxiety, depression, pers onality disorders, etc.) Score: 17 Date Signed: 01/24/2019 09:51 AM Electronically Signed By:Tania Francisco RN [facility] Progress Note CM Note CM Note Notes: CM met with patient and Dr. Obrien, patient shares she really does not feel comfortable at [place]. She states she did refuse her medications at [place] as she did not feel she had any control over her care. She shares she wanted to come to the hospital for the vomiting and pain & wanted the doctor to send her, when they didn't she called 911 herself. She states she is interested in [facility] & has started working with her social worker psychiatric and spoke with the Ragini last . PT/OT ordered, pending recommendations. CM called [facility] and spoke with Sara, . The patient is welcome back when medically stable. [facility], we can send SNF referral if recommended by PT/OT. He will check with the [employer] to see if she if she is on the wait list and explained to the patient there is a process to transferring LTC facilities. CM to follow. D/C Plan: Return to [place] (LTC or SNF) vs [facility] Date Signed: 01/22/2019 01:25 PM Electronically Signed By:Nadine Jaramillo [facility] CM Progress Note CM Note CM Note Notes: CORRECTION: Spoke with pt and with Tracy of [facility]. Pt is on waitlist at [facility], not [facility]. Tracy is reviewing info but not convinced they will be able to meet her needs. Referrals sent also to [facility] per pt request. Awaiting acceptance. [facility] is willing to take pt back when medically stable. CM to follow. D/C Plan: [facility] if not accepted by other SNF Date Signed: 01/23/2019 12:27 PM Electronically Signed By:Yodit Banegas Case Management Discharge Plan Note Case Management Discharge Discharge Order Complete? Answers: Yes Patient to Obtain Answers: Other Notes: SNF Medications Transportation Arranged Answers: [facility] Case Management Transport Answers: Yes Form Complete Faxed Final Orders Answers: Yes Family Notified Answers: Yes Discharge Comments Notes: Patient mdically cleared for discharge declines rehab dischareg at this time and elects to return to [place] where her belongings are. CM available should other needs arise. Date Signed: 01/24/2019 09:56 AM Electronically Signed By:Tania Francisco RN Intervention Information
--- NOTE | 2019-01-24 17:33 | GDS ---
[f rep st] DISCHARGE SUMMARY DISCHARGE DIAGNOSES: 1. Nausea/vomiting, resolved. 2. Volume depletion, resolved. 3. Chronic pain/fibromyalgia. 4. History of pulmonary embolism, on chronic anticoagulation. 5. Parkinson disease. 6. Chronic hypoxemia. 7. Severe obesity. 8. Diabetes mellitus type 2. 9. Gastroesophageal reflux disease. 10. Depression and anxiety. 11. Dental pain. Recommended outpatient followup. 12. Hepatic steatosis. HISTORY OF DETAILS: Please see history and physical dated January 21, 2019. In brief, the patient is a 63-year-old female with a history of chronic pain, fibromyalgia, Parkinson disease, coronary artery disease and previous pulmonary embolism, as well as diabetes, who presented to the emergency departm ent with nausea, vomiting and abdominal pain. CT scan was performed in the emergency department, whi ch was relatively unrevealing other than some moderate hepatic steatosis. She was admitted to the [facility] for further management. HOSPITAL COURSE: The patient admitted to the med/surg unit. She was given IV fluids and supportive care with antiemetics. She did not have significant diarrhea. It is thought she may have had a inés l gastroenteritis or possibly an IBS flare. Her symptoms improved, though she remained quite weak. Therapy services evaluated the patient and recommended she return to acute senior care facility r ehab for ongoing strengthening. It is noted her hemoglobin A1c is 9.7. She has been continued on [place] insulin. Her NPH was changed to lispro at discharge and this may warrant some up-titration. She will continue her glargine at 40 units subcutaneous twice daily, as well as her Januvia. There has been no other medication changes. A lidocaine patch is added for pain and ranitidine is added for pe rsistent GERD symptoms, despite PPI therapy. Case Management was involved, as she wished to move [facility] to a different long-term care facility. This was difficult to arrange and she did meet criteria to resume acute rehab services. However, she defers ongoing acute rehab at this time and el ects to return to [place] where her belongings are. DISPOSITION: The patient is discharged back to [facility] in stable condition. FOLLOWUP: She is to follow up with her primary care physician as needed. /[id number]/MODL
[2019-01-25] MEDS ORDERED: CHOLECALCIFEROL VIT D3 50,000 UNIT CAP PO SCH (10:00)
== END 2019-01-24 13:13 | DRG 392 ==
LOC: EDUNIT# → F3E 01-21 00:50 → OBSVTOIN 01-21 11:38
PROVIDERS: ADMIT Family Medicine; ATTEND Family Medicine
DX: A08.4 Viral intestinal infection, unspecified (principal); Z68.43 Body mass index [BMI] 50.0-59.9, adult; K58.9 Irritable bowel syndrome, unspecified; E86.0 Dehydration; G89.29 Other chronic pain; M79.7 Fibromyalgia; G20 Parkinson's disease; K76.0 Fatty (change of) liver, not elsewhere classified; E66.01 Morbid (severe) obesity due to excess calories; R09.02 Hypoxemia; E11.9 Type 2 diabetes mellitus without complications; K21.9 Gastro-esophageal reflux disease without esophagitis; F41.9 Anxiety disorder, unspecified; F32.9 Major depressive disorder, single episode, unspecified; K08.89 Other specified disorders of teeth and supporting structures; I25.10 Atherosclerotic heart disease of native coronary artery without angina pectoris; G47.33 Obstructive sleep apnea (adult) (pediatric); G43.909 Migraine, unspecified, not intractable, without status migrainosus; R32 Unspecified urinary incontinence; Z66 Do not resuscitate; Z79.01 Long term (current) use of anticoagulants; Z99.81 Dependence on supplemental oxygen; Z86.711 Personal history of pulmonary embolism; Z79.4 Long term (current) use of insulin; Z95.5 Presence of coronary angioplasty implant and graft
CPT/HCPCS: 82435-PO; 82565-PO; 82947-PO; 84132-PO; 84295-PO; 84484-ER; 84520-PO; 85014-ER; 96374; 97116-GP; 97162-GP; 97166-GO; J1815; J2405; Q9967